=== PATIENT | male | born 1965 | race Caucasian/White ===

== ENCOUNTER 2016-11-05 16:52 | Emergency (ER) | payer MEDICARE ==
[2014-03-05 06:16] VITALS: BMI 24.5
== END 2016-11-06 00:40 | disposition home or self-care (01) ==
LOC: D.ER 16:52
DX: S01.01XA Laceration without foreign body of scalp, initial encounter (principal); W22.09XA Striking against other stationary object, initial encounter; Y93.89 Activity, other specified; Y92.410 Unspecified street and highway as the place of occurrence of the external cause

== ENCOUNTER 2016-11-14 13:15 | Emergency (ER) | payer MEDICARE ==
[2014-03-05 06:16] VITALS: BMI 24.5
== END 2016-11-14 16:17 | disposition left against medical advice (07) ==
LOC: D.ER 13:15
DX: S01.91XD Laceration without foreign body of unspecified part of head, subsequent encounter (principal); X58.XXXD Exposure to other specified factors, subsequent encounter; Y92.89 Other specified places as the place of occurrence of the external cause; Z48.02 Encounter for removal of sutures

== ENCOUNTER 2018-09-27 11:18 | Inpatient (IN) | payer MEDICARE ==
[~2018-09-27] VITALS: Ht 175.3 cm; Wt 72.6 kg
[2018-09-27 12:27] LABS: BASOPHILS 0.2 % (0-2); EOSINOPHILS 1.3 % (0-7); HEMATOCRIT 38.7 % (42.0-54.0); HEMOGLOBIN 13.4 g/dL (13.5-17.5); IMMATURE GRANULOCYTES 0.4 % (0-5); LYMPHOCYTES 11.4 % (15-50); MCH 32.5 pg (26.0-34.0); MCHC 34.6 g/dL (31.0-37.0); MCV 93.9 fL (80.0-100.0); MEAN PLATELET VOLUME 9.4 fL (7.4-10.4); MONOCYTES 7.7 % (2-11); RBC 4.12 10x6/uL (4.20-6.10); RDW 12.6 % (11.5-14.5); WBC 9.2 10x3/uL (4.8-10.8)
[2018-09-27 12:33] LABS: PLATELET COUNT 254 10x3/uL (130-400)
[2018-09-27 12:51] LABS: APTT 37.6 SECONDS (22.8-39.4); INR 1.03 (0.85-1.17)
[2018-09-27 12:59] LABS: ALBUMIN 3.4 g/dL (3.4-5.0); ALKALINE PHOSPHATASE 90 U/L (46-116); ALT (SGPT) 117 U/L (10-68); CALC OSMOLALITY 276 mosm/kg (275-300); CALCIUM 8.6 mg/dL (8.5-10.1); CARBON DIOXIDE 21.9 mmol/L (21.0-32.0); CHLORIDE - SERUM 103 mmol/L (98-107); CREATININE - SERUM 0.6 mg/dL (0.6-1.3); GLUCOSE 116 mg/dL (74-106); PROTEIN - SERUM 8.5 g/dL (6.4-8.2); SODIUM 138 mmol/L (136-145); UREA NITROGEN 13 mg/dL (7-18); eGFR NON AFRICAN AMERICAN > 90 mL/min (90-120)
[2018-09-27 13:08] LABS: CKMB 0.9 U/L (0.0-3.6); CREATINE KINASE 60 UL (21-232)
[2018-09-27 13:11] LABS: TROPONIN-I < 0.017 ng/mL (0.000-0.060)
[2018-09-27 13:50] LABS: APPEARANCE CLEAR (CLEAR); COLOR YELLOW (YELLOW); GLUCOSE NEGATIVE (NEGATIVE); NITRITE NEGATIVE (NEGATIVE); PROTEIN NEGATIVE (NEGATIVE)
[2018-09-27 13:51] LABS: BILIRUBIN NEGATIVE (NEGATIVE); KETONE NEGATIVE (NEGATIVE)
--- NOTE | 2018-09-27 17:10 | NUR ---
RECIEVED TO ROOM 1212 FROM ER VIA . IV TO L NECK PATENT. DRESSINGS C/D/I TO BILAT ARMS. DENIES ANY NEEDS AT THIS TIME.
[2018-09-27 17:13] VITALS: BP 139/84; BMI 23.6
--- NOTE | 2018-09-27 19:12 | NUR ---
NORCO GIVEN FOR COMPLAINT OF PAIN.
--- NOTE | 2018-09-27 19:30 | NUR ---
PT IS RESTING IN BED WATCHING TV. ALERT AND ORIENTED X 3. PT STATES HE THINKS HIS PAIN MEDICINE IS STARTING TO WORK. IV INFUSING TO LEFT NECK PERIPHERAL VEIN WITHOUT DIFFICULTY. DRESSINGS TO YUNIOR ARMS ARE CDI. NO DRAINAGE NOTED. SR'S ARE UP X1 IN BED. CALL LIGHT AND BEDSIDE TABLE ARE WITHIN EASY REACH.
[2018-09-27 20:00] VITALS: BP 117/62
--- NOTE | 2018-09-27 22:17 | NUR ---
PT IS RESTING IN BED WITH EYES CLOSED. NO ACUTE DISTRESS NOTED.
[2018-09-28] VITALS: BP 118/68
--- NOTE | 2018-09-28 01:45 | NUR ---
PT RESTING IN BED WITH EYES CLOSED.
--- NOTE | 2018-09-28 02:05 | NUR ---
I AGREE WITH THE ORACLE ADF DEVELOPER ASSESSMENT THIS SHIFT.
[2018-09-28 04:00] VITALS: BP 126/71
--- NOTE | 2018-09-28 04:32 | NUR ---
PT RESTING IN BED WITH EYES OPEN. NO ACUTE DISTRESS NOTED.
[2018-09-28 07:03] LABS: BASOPHILS 0.3 % (0-2); EOSINOPHILS 1.5 % (0-7); HEMATOCRIT 34.9 % (42.0-54.0); IMMATURE GRANULOCYTES 0.2 % (0-5); LYMPHOCYTES 15.2 % (15-50); MCH 32.4 pg (26.0-34.0); MCHC 34.4 g/dL (31.0-37.0); MCV 94.3 fL (80.0-100.0); MEAN PLATELET VOLUME 9.3 fL (7.4-10.4); MONOCYTES 9.4 % (2-11); NEUTROPHILS 73.4 % (40-80); PLATELET COUNT 256 10x3/uL (130-400); RDW 12.5 % (11.5-14.5); WBC 9.5 10x3/uL (4.8-10.8)
[2018-09-28 07:40] LABS: ALBUMIN 2.7 g/dL (3.4-5.0); ALKALINE PHOSPHATASE 72 U/L (46-116); BILIRUBIN - TOTAL 0.79 mg/dL (0.2-1.3); CALCIUM 8.1 mg/dL (8.5-10.1); CARBON DIOXIDE 22.7 mmol/L (21.0-32.0); CHLORIDE - SERUM 104 mmol/L (98-107); CREATININE - SERUM 0.7 mg/dL (0.6-1.3); GLUCOSE 109 mg/dL (74-106); MAGNESIUM - SERUM 1.8 mg/dL (1.8-2.4); POTASSIUM - SERUM 3.9 mmol/L (3.5-5.1); PROTEIN - SERUM 7.3 g/dL (6.4-8.2); SODIUM 136 mmol/L (136-145); eGFR NON AFRICAN AMERICAN > 90 mL/min (90-120)
[2018-09-28 07:50] LABS: ALT (SGPT) 87 U/L (10-68); CALC OSMOLALITY 270 mosm/kg (275-300); UREA NITROGEN 7 mg/dL (7-18)
--- NOTE | 2018-09-28 07:55 | NUR ---
ASSESSMENT COMPLETE. IV TO L NECK PATENT. DRESSINGS INTACT TO BILAT ARMS. DENIES ANY NEEDS AT THIS TIME.
[2018-09-28 09:10] VITALS: BP 154/88; BP 97/52
--- NOTE | 2018-09-28 11:00 | NUR ---
RESTING QUIETLY WITH EYES CLOSED. RESP EVEN,NONLABORED.
--- NOTE | 2018-09-28 15:10 | NUR ---
NO CHANGES NOTED AT THIS TIME.
--- NOTE | 2018-09-28 15:49 | NUR ---
NORCO GIVEN FOR COMPLAINT OF PAIN.
[2018-09-28 19:35] VITALS: BP 110/64
[2018-09-28 19:42] LABS: CKMB 0.2 U/L (0.0-3.6); CREATINE KINASE 30 UL (21-232)
[2018-09-28 19:53] LABS: TROPONIN-I < 0.017 ng/mL (0.000-0.060)
--- NOTE | 2018-09-28 20:00 | NUR ---
PT RESTING IN BED WATCHING TV. ALERT AND ORIENTED X 3. DENIES ACUTE DISCOMFORT AT THIS TIME. NO NEEDS VOICED. IV INFUSING TO LEFT NECK PERIPHERAL IV WITHOUT DIFFICULTY. SR'S ARE UP X 1 IN BED. CALL LIGHT AND BEDSIDE TABLE ARE WITHIN EASY REACH. YUNIOR ARM DRESSINGS ARE INTACT.
[2018-09-28 20:23] VITALS: BP 110/56
[2018-09-29] VITALS (9 sets, daily range): BP systolic 99–168; BP diastolic 47–84
[2018-09-29 01:21] LABS: CKMB 0.2 U/L (0.0-3.6); CREATINE KINASE 30 UL (21-232)
[2018-09-29 01:25] LABS: TROPONIN-I < 0.017 ng/mL (0.000-0.060)
--- NOTE | 2018-09-29 02:56 | NUR ---
I AGREE WITH THE BOOM STICK MAN ASSESSMENT THIS SHIFT.
--- NOTE | 2018-09-29 06:12 | NUR ---
PT RESTING QUIETLY IN BED WITH EYES CLOSED.
[2018-09-29 07:30] LABS: BASOPHILS 0.2 % (0-2); EOSINOPHILS 0.8 % (0-7); HEMOGLOBIN 11.5 g/dL (13.5-17.5); IMMATURE GRANULOCYTES 0.3 % (0-5); LYMPHOCYTES 11.3 % (15-50); MCH 31.9 pg (26.0-34.0); MCHC 33.8 g/dL (31.0-37.0); MCV 94.4 fL (80.0-100.0); MEAN PLATELET VOLUME 9.2 fL (7.4-10.4); MONOCYTES 10.2 % (2-11); NEUTROPHILS 77.2 % (40-80); PLATELET COUNT 261 10x3/uL (130-400); RDW 12.5 % (11.5-14.5); WBC 10.6 10x3/uL (4.8-10.8)
[2018-09-29 07:39] LABS: CREATINE KINASE 28 UL (21-232); VANCOMYCIN - TROUGH 14.9 ug/mL (10.0-20.0)
[2018-09-29 07:42] LABS: TROPONIN-I < 0.017 ng/mL (0.000-0.060)
--- NOTE | 2018-09-29 08:15 | NUR ---
AWAKE AND ALERT. ORIENTED X3. NO C/O AT THIS TIME. ATE 100% OF BREAKFAST. LUNGS ARE CLEAR BILATERALLY, NO COUGH NOTED. SKIN IS INTACT WITHOUT REDNESS EXCEPT WOUNDS TO BILATERAL ARMS. JEFFERY LIRA HUMAN RESOURCES COMPLIANCE MANAGER HERE AND CHANGED DRESSINGS. WOUNDS ARE ABOUT BASEBALL SIZE AND VERY ANGRY, ELEVATED WELL. IV TO LEFT NECK IS PATENT WITHOUT REDNESS AT INSERTION SITED. DENIES NEEDS.
--- NOTE | 2018-09-29 10:20 | NUR ---
CONSENTS OBTAINED. ALL QUESTIONS ANSWERED. C/O FEVER. TEMP 98.7 AXILLARY. HEAT TURNED OFF. FAN PLACED AT BEDSIDE.
--- NOTE | 2018-09-29 14:15 | MORECARE ---
CASE MANAGEMENT DISCHARGE SUMMARY PATIENT: RAMIRO GORDON UNIT: [id number] ADM DATE: 09/27/18 AGE: 53 : 63 SEX: M ROOM/BED: D.1212 AUTHOR: EVONNE SANTA PHYSICIAN: REFERRING PHYSICIAN: RICHARD MARIA MD DATE OF SERVICE: 09/29/18 Discharge Plan Patient Name: RAMIRO GORDON Facility: [facility]:[place] : 1965 Planned Disposition: Anticipated Discharge Date: Discharge Date: Expected LOS: Initial Reviewer: [id number] Initial Review Date: 09/29/2018 Generated: 09/29/18 3:15 pm Comments DCP- Discharge Planning Updated by [email or web address]: Dede Arizmendi on 09/29/18 1:[address] Patient Name: RAMIRO GORDON Admission Status: ER Accout number: [id number] Admission Date: 09-27-2018 : 1965 Admission Diagnosis: Attending: RICHARD LUZ Current LOS: 2 Anticipated DC Date: Planned Disposition: Primary Insurance: MEDICARE A & B Discharge Planning Comments: CM MET WITH PATIENT ABOUT DC PLANNING. UNSURE OF ANY NEEDS AT THIS TIME, PATIENT IS GOING TO SURGERY. CM WILL FOLLOW AND ASSIST NEEDED WITH DC PLANNING/NEEDS. Color Control Operator: Dede Arizmendi DCPIA - Discharge Planning Initial Assessment Updated by [email or web address]: Dede Arizmendi on 09/29/18 2:12 pm * Is the patient Alert and Oriented? Yes * PCP NONE BUT WANTS [facility] * Pharmacy [facility] * Preadmission Environment Home Alone * ADLs Independent * List name and contact numbers for known caregivers / representatives who currently or will assist patient after discharge: MOTHER MART, * Can the patient safely return to the preadmission environment? Yes * Has this patient been hospitalized within the prior 30 days at any hospital? No Patient Name: RAMIRO GORDON Page [phone] at 1415 All edits/amendments must be made on the electronic document DICTATION DATE: 09/29/18 1414 FINISHER POLISHER: VIKTORIYA 09/29/18 1410 RPT#: [id number] [place] DATE: STATUS: ADM IN [facility] [address] [place] [address] END OF REPORT
--- NOTE | 2018-09-29 14:30 | NUR ---
OFF UNIT VIA BED TO SURGERY.
--- NOTE | 2018-09-29 16:32 | NUR ---
RETURNED FROM SURGERY. A/O X3. DRESSINGS TO BILATERAL ARMS DRY AND INTACT. FOOD SERVED IN ROOM.
--- NOTE | 2018-09-29 21:04 | NUR ---
REST IN BED, CALL LIGHT IN REACH.
[2018-09-30] VITALS: BP 104/44
--- NOTE | 2018-09-30 01:44 | NUR ---
AMRIT FORD NP CALLS UNIT, [facility], RN TALKS TO AMRIT FORD NP REGARDING IV IN NECK NO LONGER PATENT AND PT'S ARMS ARE COMPLETELY BANDAGED, AND PT HAS MRSA, ORDERS RECEIVED AND VERIFIED TO START IV IN FOOT
--- NOTE | 2018-09-30 04:08 | NUR ---
REST QUIELTY IN BED, CALL LIGHT IN REACH.
[2018-09-30 04:30] VITALS: BP 139/63
[2018-09-30 07:29] LABS: BASOPHILS 0 % (0-2); EOSINOPHILS 0 % (0-7); HEMATOCRIT 31.8 % (42.0-54.0); HEMOGLOBIN 10.9 g/dL (13.5-17.5); IMMATURE GRANULOCYTES 0.3 % (0-5); LYMPHOCYTES 6.6 % (15-50); MCH 32.2 pg (26.0-34.0); MCHC 34.3 g/dL (31.0-37.0); MCV 93.8 fL (80.0-100.0); MEAN PLATELET VOLUME 9.5 fL (7.4-10.4); MONOCYTES 2.2 % (2-11); NEUTROPHILS 90.9 % (40-80); PLATELET COUNT 261 10x3/uL (130-400); RBC 3.39 10x6/uL (4.20-6.10); RDW 12.2 % (11.5-14.5); WBC 12.5 10x3/uL (4.8-10.8)
[2018-09-30 07:49] LABS: ALBUMIN 2.4 g/dL (3.4-5.0); ALKALINE PHOSPHATASE 77 U/L (46-116); ALT (SGPT) 72 U/L (10-68); CALC OSMOLALITY 276 mosm/kg (275-300); CARBON DIOXIDE 23.1 mmol/L (21.0-32.0); CHLORIDE - SERUM 104 mmol/L (98-107); CREATININE - SERUM 0.6 mg/dL (0.6-1.3); GLUCOSE 137 mg/dL (74-106); MAGNESIUM - SERUM 1.9 mg/dL (1.8-2.4); POTASSIUM - SERUM 3.7 mmol/L (3.5-5.1); PROTEIN - SERUM 7.2 g/dL (6.4-8.2); SODIUM 138 mmol/L (136-145); eGFR NON AFRICAN AMERICAN > 90 mL/min (90-120)
[2018-09-30 07:50] LABS: UREA NITROGEN 10 mg/dL (7-18)
[2018-09-30 09:01] VITALS: BP 105/63
[2018-09-30 10:22] LABS: HEPATITIS C ANTIBODY >11.0 S/CO RAT (0.0-0.9)
--- NOTE | 2018-09-30 11:18 | EC ---
PATIENT:RAMIRO GORDON DATE OF SERVICE: 09/27/18 SEX: M MEDICAL RECORD: [id number] DATE OF : 63 LOCATION:D. D.121 AGE OF PATIENT: 53 ADMISSION DATE: 09/27/18 REFERRING PHYSICIAN: INTERPRETING PHYSICIAN: ROSS KENNEDY MD ECHOCARDIOGRAM REPORT ECHO CHARGES 4 ECHO COMPLETE Date: 09/28/18 CLINICAL DIAGNOSIS: DYSPNEA ECHOCARDIOGRAPHIC MEASUREMENTS (adult normal given) AC root (d.<3.7cm) 3.6 cm LV Septum d (<1.2 cm> 1.1 cm Valve Excursion 2.3 cm LV Septum (systole) 1.3 cm Left Atria (s.<4.0cm> 4.3 cm LVPW d(<1.2cm) 1.3 cm RV (d.<2.3cm) 3.6 cm LVPW (sytole) 1.5 cm LV diastole(<5.6CM) 5.9 cm MV E-F(>70mm/sec) cm LV systole 4.2 cm LVOT Diameter 1.9 cm MV exc.(>10mm) 1.6 cm Est.ejection fraction (50-75%) % DOPPLER: LVIT cm/sec A 76.0 cm/sec E 90.0 cm/sec LA cm/sec RVSP 35 mmHg LVOT 146 cm/sec AOP1/2T m/s Asc. Ao 165 cm/sec RVOT 95 cm/sec RA cm/sec PA 130 cm/sec AV Gradient Peak 10.95mmHg AV Mean 5.05 mmHg AV Area 2.9 cm MV Gradient Peak 4.09 mmHg MV Mean 1.81 mmHg MV Area cm COMMENTS: Manager Access: Moses THORNE Exhaust And Muffler Repairer: 1 Dr. Kennedy TAPE# PACS Pericardial Effusion N DATE OF SERVICE: 09/28/2018 FINDINGS: 1. Left ventricular chamber size is within normal limits. Left ventricular systolic function is normal. Overall ejection fraction is estimated at 60%. 2. Left atrium is mildly dilated at 4.3 cm. Right atrium and right ventricle chamber sizes are as well mildly dilated. 3. Valvular structures have normal structure and motion. 4. Doppler interrogation reveals tqxpx-qy-wwcl mitral regurgitation and rnalc-mv-nlrw tricuspid regurgitation. No other valvular insufficiency or ECHOCARDIOGRAM REPORT [id number] GORDON,RAMIRO R stenosis. Pulmonary systolic pressure is estimated at 35 mmHg. 5. No evidence of pericardial effusion or left ventricular thrombus. TRANSINT:[id number] Voice Confirmation ID: [id number] DOCUMENT ID: [id number] ROSS KENNEDY MD at 1118 CC: [id number] DICTATION DATE: 09/28/18 1318 GLASS TOUGHENING OPERATOR: 09/28/18 1348 ADM IN [facility] [address] [id number]
[2018-09-30 12:08] VITALS: BP 118/68
[2018-09-30 15:26] VITALS: BP 109/58
--- NOTE | 2018-09-30 15:35 | NUR ---
PAGED MARIA EUGENIA, WAITING RIVER GUIDE BACK.
--- NOTE | 2018-09-30 19:20 | NUR ---
CONTACT ISOLATION OBSERVED. BED LOW AND CALL LIGHT IN REACH. IV TO RT FOOT SALINE LOCKED WITH NO EDEMA NO REDNESS. LCTA SKIN WARM AND DRY . COMPLAINING OF ITCHING EYES ...NO REDNESS NOTED AT THIS TIME
--- NOTE | 2018-09-30 19:59 | NUR ---
REQUESTING A BATH AT THIS TIME. I ASCKED PATIENT TO WAIT. WILL TAKE ASSIST DUE TO BANDAGES AND IV TO FOOT.
[2018-09-30 20:31] VITALS: BP 111/62
[2018-10-01] VITALS: BP 110/72
[2018-10-01 05:42] VITALS: BP 97/55
--- NOTE | 2018-10-01 08:05 | NUR ---
IVPB VANCOMYCIN HUNG AT THIS TIME. ALSO GAVE NORCO FOR PAIN LEVEL OF 10/10. PT A/O X4, RESP EVEN AND NONLABORED ON RA. DRESSING TO BILAT ARMS CDI. PT DENIES ANY OTHER NEEDS AT THIS TIME. CALL LIGHT IN REACH,NAD NOTED, WILL CONTINUE PLAN OF CARE.
[2018-10-01 08:14] LABS: BASOPHILS 0.2 % (0-2); EOSINOPHILS 0.2 % (0-7); HEMATOCRIT 31.2 % (42.0-54.0); HEMOGLOBIN 10.5 g/dL (13.5-17.5); IMMATURE GRANULOCYTES 1.2 % (0-5); LYMPHOCYTES 14.7 % (15-50); MCH 31.6 pg (26.0-34.0); MCHC 33.7 g/dL (31.0-37.0); MEAN PLATELET VOLUME 9.2 fL (7.4-10.4); MONOCYTES 5.6 % (2-11); NEUTROPHILS 78.1 % (40-80); PLATELET COUNT 271 10x3/uL (130-400); RBC 3.32 10x6/uL (4.20-6.10); RDW 12.4 % (11.5-14.5); WBC 12.7 10x3/uL (4.8-10.8)
[2018-10-01 08:26] LABS: ALBUMIN 2.2 g/dL (3.4-5.0); ALKALINE PHOSPHATASE 75 U/L (46-116); ALT (SGPT) 54 U/L (10-68); CALC OSMOLALITY 280 mosm/kg (275-300); CARBON DIOXIDE 25.9 mmol/L (21.0-32.0); CHLORIDE - SERUM 108 mmol/L (98-107); CREATININE - SERUM 0.6 mg/dL (0.6-1.3); GLUCOSE 109 mg/dL (74-106); POTASSIUM - SERUM 3.8 mmol/L (3.5-5.1); PROTEIN - SERUM 6.5 g/dL (6.4-8.2); SODIUM 141 mmol/L (136-145); UREA NITROGEN 10 mg/dL (7-18); eGFR NON AFRICAN AMERICAN > 90 mL/min (90-120)
[2018-10-01 09:21] VITALS: BP 115/66
--- NOTE | 2018-10-01 10:49 | NUR ---
PER DR. BOURNE, PT CAN HAVE 10MG OF AMBIEN QHSPRN AND MIRALAX BID.
--- NOTE | 2018-10-01 12:47 | MORECARE ---
CASE MANAGEMENT DISCHARGE SUMMARY PATIENT: RAMIRO GORDON UNIT: [id number] ADM DATE: 09/27/18 AGE: 53 : 63 SEX: M ROOM/BED: D.1212 AUTHOR: ARINADOC PHYSICIAN: REFERRING PHYSICIAN: RICHARD MARIA MD DATE OF SERVICE: 10/01/18 Discharge Plan Patient Name: RAMIRO GORDON Facility: [facility]:[place] : 1965 Planned Disposition: Anticipated Discharge Date: Discharge Date: Expected LOS: Initial Reviewer: [id number] Initial Review Date: 09/29/2018 Generated: 10/01/18 1:47 pm Comments DCP- Discharge Planning Updated by [email or web address]: Dede Arizmendi on 10/01/18 11:[address] Patient Name: RAMIRO GORDON Admission Status: ER Accout number: [id number] Admission Date: 09-27-2018 : 1965 Admission Diagnosis:CUTANEOUS ABSCESS OF LEFT UPPER LIMB Attending: RICHARD LUZ Current LOS: 4 Anticipated DC Date: Planned Disposition: Primary Insurance: MEDICARE A & B Discharge Planning Comments: CM MET WITH PATIENT ABOUT DC PLANNING. STATES HAS NO PLACE TO STAY UNTIL SATURDAY WHEN HE GETS HIS CHECK. STATES WHEN HE HAS A PLACE HE COULD USE [facility] BUT HAS NO ONE TO HELP HIM WITH DAILY DRESSING CHANGES. STATES IF NEEDS SNF W[facility] LIKE [facility]. I WILL START THE REFERRAL PROCESS WHEN I FIND OUT WHICH HE WILL NEED. CM TO FOLLOW AND ASSIST NEEDED WITH DC PLANNING/NEEDS. Scalder: Dede Arizmendi DCP- Discharge Planning Updated by [id number]: Dede Arizmendi on 09/29/18 1:[address] Patient Name: RAMIRO GORDON Admission Status: ER Accout number: [id number] Admission Date: 09-27-2018 : 1965 Admission Diagnosis: Attending: RICHARD LUZ Current LOS: 2 Anticipated DC Date: Planned Disposition: Primary Insurance: MEDICARE A & B Discharge Planning Comments: CM MET WITH PATIENT ABOUT DC PLANNING. UNSURE OF ANY NEEDS AT THIS TIME, PATIENT IS GOING TO SURGERY. CM WILL FOLLOW AND ASSIST NEEDED WITH DC PLANNING/NEEDS. Scalder: Dede Arizmendi DCPIA - Discharge Planning Initial Assessment Updated by [id number]: Dede Arizmendi on 09/29/18 2:12 pm * Is the patient Alert and Oriented? Yes * PCP NONE BUT WANTS [facility] * Pharmacy [facility] * Preadmission Environment Home Alone * ADLs Independent * List name and contact numbers for known caregivers / representatives who currently or will assist patient after discharge: MOTHER MART, * Can the patient safely return to the preadmission environment? Yes * Has this patient been hospitalized within the prior 30 days at any hospital? No Coverage Notice Reviewer: [email or web address] Breanne Arizmendi Notice Issued Date-Time: 10/01/2018 12:36 Notice Type: Patient Choice Letter Notice Delivered To: Patient Relationship to Patient: Self Casino Worker Name: Delivery Method: HAND - Hand Delivered Argenis Days: Prior Verbal Notification: Recipient Understood Notice: Yes Recipient Signature: Yes Med Rec Note Co-signed by Attending: Coverage Notice Comment: ALEX SIGNED FOR CARE IV HH ALEX SIGNED FOR [facility]. Last DP export: 09/29/18 1:15 p Patient Name: RAMIRO GORDON Page [phone] at 1247 All edits/amendments must be made on the electronic document DICTATION DATE: 10/01/181246 PUSH BENCH OPERATOR HELPER: VIKTORIYA 10/01/18 1247 RPT#: [id number] DC DATE: STATUS: ADM IN [facility] [address] [place] [address] END OF REPORT
[2018-10-01 13:59] VITALS: BP 110/58
[2018-10-01 17:03] VITALS: BP 98/51
--- NOTE | 2018-10-01 19:25 | NUR ---
CONTINIUE TO OBSERVE CONTACT ISOLATION. BANDAGES TO ARMS BILATE IN PLACE BED LOW AND SRX2 IV TO RT FOOT NO EDEMA OR REDNESS INFUSING TO KEEP OPEN RATECALL LIGHT IN REACH...PT REMINDS ME HE WANTS A SLEEPING PILL. LCTA NO OTHER WOUNDS NOTED
--- NOTE | 2018-10-01 21:30 | NUR ---
DOROTHY AND CHRIS GIVEN POST DRSG CHANGE. REMOVED ALL BANDAGES AND REMOVED PACKING FROM ON SITE TO LEFT ARM THEN REPACKED WITH IODOFORM COVERD WITH STERILE GUAZE AND KERLIX...REMOVED ALL DRSGS AND PACKING FROM THREE PSITES TO RT ARM...REPACKED WITH IODODFORM AND AND COVERED WITH STERILE GUAZE AND KERLIX
[2018-10-01 22:33] VITALS: BP 101/52
[2018-10-02 02:34] VITALS: BP 98/53
--- NOTE | 2018-10-02 03:38 | NUR ---
I AGREE WITH AUTOMOTIVE PAINTER ASSESSMENT
[2018-10-02 05:44] VITALS: BP 88/40
[2018-10-02 06:42] LABS: BASOPHILS 0.6 % (0-2); EOSINOPHILS 1.7 % (0-7); HEMATOCRIT 32.5 % (42.0-54.0); HEMOGLOBIN 10.7 g/dL (13.5-17.5); IMMATURE GRANULOCYTES 4.6 % (0-5); LYMPHOCYTES 34.2 % (15-50); MCH 31.6 pg (26.0-34.0); MCHC 32.9 g/dL (31.0-37.0); MCV 95.9 fL (80.0-100.0); MEAN PLATELET VOLUME 9.2 fL (7.4-10.4); MONOCYTES 9.2 % (2-11); NEUTROPHILS 49.7 % (40-80); PLATELET COUNT 255 10x3/uL (130-400); RBC 3.39 10x6/uL (4.20-6.10); RDW 12.7 % (11.5-14.5)
[2018-10-02 06:54] LABS: ALBUMIN 2.2 g/dL (3.4-5.0); ALKALINE PHOSPHATASE 59 U/L (46-116); ALT (SGPT) 58 U/L (10-68); BILIRUBIN - TOTAL 0.14 mg/dL (0.2-1.3); CALC OSMOLALITY 280 mosm/kg (275-300); CALCIUM 7.9 mg/dL (8.5-10.1); CARBON DIOXIDE 28.7 mmol/L (21.0-32.0); CHLORIDE - SERUM 107 mmol/L (98-107); CREATININE - SERUM 0.6 mg/dL (0.6-1.3); GLUCOSE 90 mg/dL (74-106); SODIUM 141 mmol/L (136-145); UREA NITROGEN 12 mg/dL (7-18); eGFR NON AFRICAN AMERICAN > 90 mL/min (90-120)
--- NOTE | 2018-10-02 08:07 | NUR ---
The patient called staff to his room and he said he peed the bed. So I said "I'll need to change the linens." He said "No, I'm tired just put a towel down." Did put a towel down and then Nickolas was able to change his linens.
[2018-10-02 10:11] VITALS: BP 95/54
--- NOTE | 2018-10-02 11:00 | NUR ---
The patient spilled his urinal all over the floor.
[2018-10-02 13:43] VITALS: Ht 175.3 cm; Wt 72.6 kg
[2018-10-02 14:35] VITALS: BP 97/57
--- NOTE | 2018-10-02 16:00 | NUR ---
Offered to change the patient's bandages, he said "No, I just had them changed yesterday." Explained to him that the order is for everyday. The patient requests ice cream and a lemon tonawanda drink.
--- NOTE | 2018-10-02 19:40 | NUR ---
AWAKE AND ALERT TOLERATING ALL WELL BED LOW AND CALL LIGHT IN REACH SR X2 IV TO RT FOOT WITH NO EDEMA NO REDNESS AND NS AT 30 INFUSING. REFUSED EXAM AT THIS TIME....DRSG CHANGE OFFERED AND REFUSED.
[2018-10-02 20:00] VITALS: BP 106/61
--- NOTE | 2018-10-02 23:47 | NUR ---
BEGIN IV INFUSTION OF VAC AND PATIENT COMPLAIN OF PAIN AT THE NORIS SITE ATTEMPTED TO FLUSH WITH NO RESULTS. NO IV ACCESS AT THIS TIME PT REFUSES TO HAVE IV CATH REMOVED OR FOR ME TO ATTEMPT TO RESITE
[2018-10-03] VITALS: BP 109/62; BP 124/73
--- NOTE | 2018-10-03 02:55 | NUR ---
ASSESSED, PT REMAINS IN CONTACT ISOLATION. ASLEEP WITH EASY RESPIRATIONS AND A FAN BLOWING ON HIM. NO DISTRESS NOTED.
[2018-10-03 04:00] VITALS: BP 100/52
[2018-10-03 07:42] LABS: BASOPHILS 1.1 % (0-2); EOSINOPHILS 3.4 % (0-7); HEMATOCRIT 32.2 % (42.0-54.0); HEMOGLOBIN 10.8 g/dL (13.5-17.5); IMMATURE GRANULOCYTES 4.8 % (0-5); LYMPHOCYTES 27.5 % (15-50); MCHC 33.5 g/dL (31.0-37.0); MCV 95.3 fL (80.0-100.0); MEAN PLATELET VOLUME 9.3 fL (7.4-10.4); MONOCYTES 7.2 % (2-11); RBC 3.38 10x6/uL (4.20-6.10); RDW 12.8 % (11.5-14.5); WBC 7.1 10x3/uL (4.8-10.8)
[2018-10-03 07:44] LABS: PLATELET COUNT 326 10x3/uL (130-400)
--- NOTE | 2018-10-03 07:45 | NUR ---
ASSESSMENT COMPLETE. CONTACT ISOLATION PRECAUTIONS IN PLACE. DRESSINGS INTACT TO BILAT ARMS. DENIES ANY NEEDS AT THIS TIME.
[2018-10-03 07:51] LABS: ALBUMIN 2.4 g/dL (3.4-5.0); ALKALINE PHOSPHATASE 66 U/L (46-116); ALT (SGPT) 61 U/L (10-68); BILIRUBIN - TOTAL 0.19 mg/dL (0.2-1.3); CALC OSMOLALITY 279 mosm/kg (275-300); CARBON DIOXIDE 24.8 mmol/L (21.0-32.0); CHLORIDE - SERUM 105 mmol/L (98-107); CREATININE - SERUM 0.6 mg/dL (0.6-1.3); GLUCOSE 92 mg/dL (74-106); PROTEIN - SERUM 6.5 g/dL (6.4-8.2); SODIUM 140 mmol/L (136-145); UREA NITROGEN 14 mg/dL (7-18); eGFR NON AFRICAN AMERICAN > 90 mL/min (90-120)
[2018-10-03 08:00] VITALS: BP 111/47
--- NOTE | 2018-10-03 08:20 | NUR ---
SWELLING AND TENDERNESS NOTED TO RIGHT FOOT IV. IV REMOVED. CATHETER TIP INTACT.
[2018-10-03] MEDS ORDERED: HYDROCODON-ACE1 EAC7 PO (08:42)
--- NOTE | 2018-10-03 11:00 | NUR ---
IV SITED TO R UPPER ARM BY LLUVIA WATSON RN.
[2018-10-03 13:16] VITALS: BP 106/64
--- NOTE | 2018-10-03 15:00 | NUR ---
NO CHANGES NOTED AT THIS TIME. DENIES ANY NEEDS AT PRESENT.
[2018-10-03 17:20] VITALS: BP 106/63
--- NOTE | 2018-10-03 17:41 | MORECARE ---
CASE MANAGEMENT DISCHARGE SUMMARY PATIENT: RAMIRO GORDON UNIT: [id number] ADM DATE: 09/27/18 AGE: 53 : 63 SEX: M ROOM/BED: D.1212 AUTHOR: ARINA,DOC PHYSICIAN: REFERRING PHYSICIAN: RICHARD MARIA MD DATE OF SERVICE: 10/03/18 Discharge Plan Patient Name: RAMIRO GORDON Facility: [facility]:[place] : 1965 Planned Disposition: Anticipated Discharge Date: Discharge Date: Expected LOS: Initial Reviewer: [id number] Initial Review Date: 09/29/2018 Generated: 10/03/18 6:41 pm Comments DCP- Discharge Planning Updated by [email or web address]: Dede Arizmendi on 10/03/18 4:[address] Patient Name: RAMIRO GORDON Admission Status: ER Accout number: [id number] Admission Date: 09-27-2018 : 1965 Admission Diagnosis:CUTANEOUS ABSCESS OF LEFT UPPER LIMB Attending: RICHARD LUZ Current LOS: 6 Anticipated DC Date: Planned Disposition: Primary Insurance: MEDICARE A & B Discharge Planning Comments: CM MET WITH PATIENT AGAIN ABOUT DC PLANNING/NEEDS. WANTS TO DISCHARGE FROM HOSPITAL SO HE CAN GO RENT A PLACE TO STAY AND EITHER GO TO [facility] TO HAVE DRESSING CHANGES OR HH ONCE HE HAS AN ADDRESS. PATIENT CELL PHONE NUMBER IS [phone]. Shipping Order Clerk: Dede Arizmendi DCP- Discharge Planning Updated by [id number]: Dede Arizmendi on 10/01/18 11:[address] Patient Name: RAMIRO GORDON Admission Status: ER Accout number: [id number] Admission Date: 09-27-2018 : 1965 Admission Diagnosis:CUTANEOUS ABSCESS OF LEFT UPPER LIMB Attending: RICHARD LUZ Current LOS: 4 Anticipated DC Date: Planned Disposition: Primary Insurance: MEDICARE A & B Discharge Planning Comments: CM MET WITH PATIENT ABOUT DC PLANNING. STATES HAS NO PLACE TO STAY UNTIL SATURDAY WHEN HE GETS HIS CHECK. STATES WHEN HE HAS A PLACE HE COULD USE [facility] BUT HAS NO ONE TO HELP HIM WITH DAILY DRESSING CHANGES. STATES IF NEEDS [facility] WOULD LIKE [facility]. I WILL START THE REFERRAL PROCESS WHEN I FIND OUT WHICH HE WILL NEED. CM TO FOLLOW AND ASSIST NEEDED WITH DC PLANNING/NEEDS. Shipping Order Clerk: Dede Arizmendi DCP- Discharge Planning Updated by [email or web address]: Dede Arizmendi on 09/29/18 1:[address] Patient Name: RAMIRO GORDON Admission Status: ER Accout number: [id number] Admission Date: 09-27-2018 : 1965 Admission Diagnosis: Attending: RICHARD LUZ Current LOS: 2 Anticipated DC Date: Planned Disposition: Primary Insurance: MEDICARE A & B Discharge Planning Comments: CM MET WITH PATIENT ABOUT DC PLANNING. UNSURE OF ANY NEEDS AT THIS TIME, PATIENT IS GOING TO SURGERY. CM WILL FOLLOW AND ASSIST NEEDED WITH DC PLANNING/NEEDS. Shipping Order Clerk: Dede Arizmendi DCPIA - Discharge Planning Initial Assessment Updated by [email or web address]: Dede Arizmendi on 09/29/18 2:12 pm * Is the patient Alert and Oriented? Yes * PCP NONE BUT WANTS [place] * Pharmacy [facility] * Preadmission Environment Home Alone * ADLs Independent * List name and contact numbers for known caregivers / representatives who currently or will assist patient after discharge: MOTHER MART, * Can the patient safely return to the preadmission environment? Yes * Has this patient been hospitalized within the prior 30 days at any hospital? No Coverage Notice Reviewer: [id number] - Dede Arizmendi Notice Issued Date-Time: 10/01/2018 12:36 Notice Type: Patient Choice Letter Notice Delivered To: Patient Relationship to Patient: Self Fleet Maintenance Foreman Name: Delivery Method: HAND - Hand Delivered Argenis Days: Prior Verbal Notification: Recipient Understood Notice: Yes Recipient Signature: Yes Med Rec Note Co-signed by Attending: Coverage Notice Comment: ALEX SIGNED FOR CARE IV HH ALEX SIGNED FOR [facility]. Last DP export: 10/01/18 11:47 a Patient Name: RAMIRO GORDON Page [phone] at 1741 All edits/amendments must be made on the electronic document DICTATION DATE: 10/03/181739 PULL SOCKET ASSEMBLER: VIKTORIYA 10/03/181739 RPT#: [id number] DC DATE: STATUS: ADM IN [facility] [address] [facility] END OF REPORT
--- NOTE | 2018-10-03 18:27 | NUR ---
DENIES ANY NEEDS AT THIS TIME.
--- NOTE | 2018-10-03 19:30 | NUR ---
PT RESTING IN BED. NO S/S OF DISTRESS. PT DENIES ANY PAIN OR NEEDS AT THIS TIME. RIGHT 20G UPPER ARM IV SALINE LOCKED. BED LOW CALL LIGHT WITHIN REACH. WILL CONTINUE TO MONITOR.
[2018-10-03 20:00] VITALS: BP 108/59
--- NOTE | 2018-10-04 02:56 | NUR ---
ASSESSED, PT IS AWAKE IN BED WITH NURSE AT THE BEDSIDE DOING A DRESSING CHANGE TO BILATERAL ARM WOUNDS AND INCISIONS. EASY RESPIRATIONS AND NO DISTRESS NOTED. PT REMAINS IN ISOLATION.
--- NOTE | 2018-10-04 03:32 | NUR ---
CHANGED PT DRESSING TO LEFT AND RIGHT HANDS AND FOREARM. USED IODAFORM FOR PACKING. WOUNDS POOLED WITH BLOOD UPON PULLING OUT IODAFORM. IODAFORM WAS STUCK TO WOUNDS. PT COMPLAINED OF PAIN AND DIZZENESS DURING REMOVAL. PT STATES DRESSING HAD NOT BEEN CHANGED ALL DAY. DRESSING C/D/I. PRN PAIN MED GIVEN. BED IS LOW, CALL LIGHT WITHIN REACH. WILL CONTINUE TO MONITOR.
[2018-10-04 04:00] VITALS: BP 161/86
--- NOTE | 2018-10-04 05:00 | NUR ---
PT REQUESTING TO SEE MD BEFORE RELEASE FROM [facility] CONCERNING WOUNDS ON ARMS BILAT. WILL PASS IN REPORT. BED LOW CALL LIGHT WITHIN REACH. WILL CONTINUE TO MONITOR
[2018-10-04 07:11] LABS: BASOPHILS 0.5 % (0-2); EOSINOPHILS 2.6 % (0-7); HEMATOCRIT 35.1 % (42.0-54.0); HEMOGLOBIN 11.8 g/dL (13.5-17.5); IMMATURE GRANULOCYTES 3.5 % (0-5); LYMPHOCYTES 23.2 % (15-50); MCH 31.5 pg (26.0-34.0); MCHC 33.6 g/dL (31.0-37.0); MCV 93.6 fL (80.0-100.0); MEAN PLATELET VOLUME 9.1 fL (7.4-10.4); MONOCYTES 6.1 % (2-11); NEUTROPHILS 64.1 % (40-80); PLATELET COUNT 323 10x3/uL (130-400); RBC 3.75 10x6/uL (4.20-6.10); RDW 12.5 % (11.5-14.5); WBC 8.8 10x3/uL (4.8-10.8)
[2018-10-04 07:46] LABS: CALC OSMOLALITY 273 mosm/kg (275-300); CALCIUM 8.5 mg/dL (8.5-10.1); CARBON DIOXIDE 24.8 mmol/L (21.0-32.0); CHLORIDE - SERUM 102 mmol/L (98-107); CREATININE - SERUM 0.7 mg/dL (0.6-1.3); GLUCOSE 93 mg/dL (74-106); POTASSIUM - SERUM 3.8 mmol/L (3.5-5.1); SODIUM 137 mmol/L (136-145); UREA NITROGEN 12 mg/dL (7-18); eGFR NON AFRICAN AMERICAN > 90 mL/min (90-120)
[2018-10-04 07:58] VITALS: BP 141/77
--- NOTE | 2018-10-04 08:06 | NUR ---
RECIEVED BEDSIDE REPORT. AM ROUNDS COMPLETED. VSS, AAOX4, NO S/S OF DISTRESS, RR EVEN AND UNLABORED. PT ON CONTACT PRECAUTION. PT RIGHT AND LEFT HAND DRESSING C/D/I. DENIES ANY FURTHER NEEDS AT THE MOMENT. WILL CPOC. CL IN REACH BED IN LOW, SR UP X2.
[2018-10-04 13:34] VITALS: BP 140/90
--- NOTE | 2018-10-04 14:20 | NUR ---
PT BROTHER CALLED STATING THAT HE WILL BE COMING DOWN TO THE HOSPITAL TO COLLECT RENT MONEY FROM PT. NOTIFIED THE PT.
--- NOTE | 2018-10-04 15:02 | NUR ---
PT BROTHER WHEELED HIMSELF OUT OF THE ROOM, CALLING OUT "YOU THINK I AM FUCKING WITH YOU? YOU ARE HOMELESS" VISITOR WAS ASKED IF EVERYTHING WAS OKAY, HE REPLIED, "OH YES CAROLYNN, HE DOESN'T HAVE A PLACE TO LIVE WHEN HE GETS OUT OF HERE, AND I AM GOING TIE HIS DOG TO THE FRONT DOOR OF THE HOSPITAL."
[2018-10-04 16:00] VITALS: BP 117/79
--- NOTE | 2018-10-04 19:40 | NUR ---
PT ALERT AND ORIENTED X4. PT COMPLAINS OF PAIN 10/10 IN BILAT ARMS. PRN PAIN MEDICATION NOT DUE YET. VITALS STABLE. BED LOW CALL LIGHT WITHIN REACH. WILL CONTINUE TO MONITOR.
--- NOTE | 2018-10-04 22:00 | NUR ---
PT COMPLAINS OF PAIN IN BOTH LOWER ARMS. PRN PAIN MEDICATION GIVEN. PT DENIES ANY FURTHER NEEDS. BED LOW CALL LIGHT WITHIN REACH. WILL CONTINUE TO MONITOR.
--- NOTE | 2018-10-05 00:50 | NUR ---
PT RESTING IN BED WITH EYES CLOSED RR EVEN AND UNLABORED ON ROOM AIR. BED LOW CALL LIGHT WITHIN REACH. WILL CONTINUE TO MONITOR.
--- NOTE | 2018-10-05 02:26 | NUR ---
I AGREE WITH LAUNDRY CLERK ASSESSMENT THIS SHIFT.
[2018-10-05 05:27] VITALS: BP 120/82
--- NOTE | 2018-10-05 05:35 | NUR ---
WTD DRESSING CHANGE TO PT LOWER BILAT. ARMS. INCISION PINK WITH POOLING BLOOD UPON GENTLE REMOVAL OF IDOFORM. WET 4X4 PACKED IN WOUNDS COVERED BY DRY 4X4 AND WRAPPED IN KERLEX. PT TOLERATED WELL. NO S/S OF DISTRESS PT DENIES ANY PAIN OR NEEDS AT THIS TIME. DRESSING C/D/I. WILL CONTINUE TO MONITOR.
[2018-10-05 07:05] LABS: BASOPHILS 0.6 % (0-2); EOSINOPHILS 4.6 % (0-7); HEMATOCRIT 35.3 % (42.0-54.0); IMMATURE GRANULOCYTES 4.1 % (0-5); LYMPHOCYTES 22.9 % (15-50); MCH 32.1 pg (26.0-34.0); MCV 94.4 fL (80.0-100.0); MONOCYTES 8.4 % (2-11); NEUTROPHILS 59.4 % (40-80); PLATELET COUNT 308 10x3/uL (130-400); RBC 3.74 10x6/uL (4.20-6.10); RDW 12.8 % (11.5-14.5); WBC 7.1 10x3/uL (4.8-10.8)
[2018-10-05] MEDS ORDERED: VIBRAMYCIN 100100 MG PO (07:24)
[2018-10-05 07:34] LABS: CALC OSMOLALITY 270 mosm/kg (275-300); CALCIUM 8.5 mg/dL (8.5-10.1); CARBON DIOXIDE 24.5 mmol/L (21.0-32.0); CHLORIDE - SERUM 103 mmol/L (98-107); CREATININE - SERUM 0.6 mg/dL (0.6-1.3); GLUCOSE 94 mg/dL (74-106); POTASSIUM - SERUM 4.2 mmol/L (3.5-5.1); SODIUM 135 mmol/L (136-145); UREA NITROGEN 16 mg/dL (7-18); eGFR NON AFRICAN AMERICAN > 90 mL/min (90-120)
--- NOTE | 2018-10-05 08:05 | NUR ---
RESTING QUIETLY IN BED, EYES CLOSED, RESP EVEN AND UNLABORED, AROUSES TO VOICE, DRESSING TO ARMS CDI, SL TO RIGHT UPPER ARM, DENIES NEEDS AT THIS TIME, CALL LIGHT AT HAND, INSTRUCTED TO CALL WITH NEEDS.
[2018-10-05 08:51] VITALS: BP 128/70
--- NOTE | 2018-10-05 11:00 | NUR ---
PATIENT INSTRUCTED TO CALL MOTEL OF HIS CHOICE TO FIND SUITABLE LIVING QUARTERS UNTIL HE COULD LOCATE A PERMANENT DWELLING. PATIENT VOICED UNDERSTANDING.
--- NOTE | 2018-10-05 11:40 | MORECARE ---
CASE MANAGEMENT DISCHARGE SUMMARY PATIENT: RAMIRO GORDON UNIT: [id number] ADM DATE: 09/27/18 AGE: 53 : 63 SEX: M ROOM/BED: D.1212 AUTHOR: ARINA,DOC PHYSICIAN: REFERRING PHYSICIAN: RICHARD MARIA MD DATE OF SERVICE: 10/05/18 Discharge Plan Patient Name: RAMIRO GORDON Facility: [facility]:[place] : 1965 Planned Disposition: Anticipated Discharge Date: Discharge Date: Expected LOS: Initial Reviewer: [id number] Initial Review Date: 09/29/2018 Generated: 10/05/18 12:40 pm Comments DCP- Discharge Planning Updated by [email or web address]: Yuliya Araya on 10/05/18 10:[address] CM MET WITH THE PATIENT AT THE BEDSIDE THIS AM. HE PLANS TO DISCHARGE AFTER LUNCH TO A HOTEL ROOM HE HAS RECEIVED HIS CHECK. HIS BROTHER VISITED LAST EVENING AND WILL NOT ALLOW PATIENT TO RETURN TO THE BROTHER'S HOME. SEE NURSE'S DOCUMENTATION. NO DOCUMENTED REFERRAL TO A SKILLED FACILITY. WOULD LIKELY BE A DIFFICULT PLACEMENT DUE TO PATIENT'S AGE AND HISTORY. CM PROVIDED THE PATIENT WITH 4 BUS PASSES TO GET TO THE MD OFFICE FOR DRESSING CHANGES. NOTE THE PLAN IS FOR PATIENT TO GO TO DR MACK'S OFFICE FOR DRESSING CHANGES. CM REQUEST THE NURSE PROVIDE THE PATIENT WITH DRESSINGS IN CASE HE NEEDS TO DO CHANGES PRIOR TO MD VISIT. NURSE TO CALL IF PATIENT NEEDS [facility] TRANSPORT AT DISCHARGE. DCP- Discharge Planning Updated by [id number]: Dede Arizmendi on 10/03/18 4:[address] Patient Name: RAMIRO GORDON Admission Status: ER Accout number: [id number] Admission Date: 09-27-2018 : 1965 Admission Diagnosis:CUTANEOUS ABSCESS OF LEFT UPPER LIMB Attending: RICHARD LUZ Current LOS: 6 Anticipated DC Date: Planned Disposition: Primary Insurance: MEDICARE A & B Discharge Planning Comments: CM MET WITH PATIENT AGAIN ABOUT DC PLANNING/NEEDS. STATES WANTS TO DISCHARGE FROM HOSPITAL SO HE CAN GO RENT A PLACE TO STAY AND EITHER [facility] TO [facility] OR HH ONCE HE HAS AN ADDRESS. PATIENT CELL PHONE NUMBER IS [phone]. Attache: Dede Arizmendi DCP- Discharge Planning Updated by [id number]: Dede Arizmendi on 10/01/18 11:[address] Patient Name: RAMIRO GORDON Admission Status: ER Accout number: [id number] Admission Date: 09-27-2018 : 1965 Admission Diagnosis:CUTANEOUS ABSCESS OF LEFT UPPER LIMB Attending: RICHARD LUZ Current LOS: 4 Anticipated DC Date: Planned Disposition: Primary Insurance: MEDICARE A & B Discharge Planning Comments: CM MET WITH PATIENT ABOUT DC PLANNING. STATES HAS NO PLACE TO STAY UNTIL SATURDAY WHEN HE GETS HIS CHECK. STATES WHEN HE HAS A PLACE HE COULD USE [facility] BUT HAS NO ONE TO HELP HIM WITH DAILY DRESSING CHANGES. STATES IF NEEDS SNF WOULD LIKE [facility]. I WILL START THE REFERRAL PROCESS WHEN I FIND OUT WHICH HE WILL NEED. CM TO FOLLOW AND ASSIST NEEDED WITH DC PLANNING/NEEDS. Attache: Dede Arizmendi DCP- Discharge Planning Updated by [id number]: Dede Arizmendi on 09/29/18 1:[address] Patient Name: RAMIRO GORDON Admission Status: ER Accout number: [id number] Admission Date: 09-27-2018 : 1965 Admission Diagnosis: Attending: RICHARD LUZ Current LOS: 2 Anticipated DC Date: Planned Disposition: Primary Insurance: MEDICARE A & B Discharge Planning Comments: CM MET WITH PATIENT ABOUT DC PLANNING. UNSURE OF ANY NEEDS AT THIS TIME, PATIENT IS GOING TO SURGERY. CM WILL FOLLOW AND ASSIST NEEDED WITH DC PLANNING/NEEDS. Attache: Dede Arizmendi DCPIA - Discharge Planning Initial Assessment Updated by [id number]: Dede Arizmendi on 09/29/18 2:12 pm * Is the patient Alert and Oriented? Yes * PCP NONE BUT WANTS [place] * Pharmacy [facility] * Preadmission Environment Home Alone * ADLs Independent * List name and contact numbers for known caregivers / representatives who currently or will assist patient after discharge: MOTHER MART, * Can the patient safely return to the preadmission environment? Yes * Has this patient been hospitalized within the prior 30 days at any hospital? No Coverage Notice Reviewer: [id number] - Dede Arizmendi Notice Issued Date-Time: 10/01/2018 12:36 Notice Type: Patient Choice Letter Notice Delivered To: Patient Relationship to Patient: Self Program Instructor Name: Delivery Method: HAND - Hand Delivered Argenis Days: Prior Verbal Notification: Recipient Understood Notice: Yes Recipient Signature: Yes Med Rec Note Co-signed by Attending: Coverage Notice Comment: [facility] S[facility] FOR [facility] ALEX SIGNED FOR [facility]. Last DP export: 10/03/18 4:41 pm Patient Name: RAMIRO GORDON Page [id number] at 1140 All edits/amendments must be made on the electronic document DICTATION DATE: 10/05/18 1140 EMPLOYMENT CONSULTANT: DM 10/05/18 1140 RPT#: [id number] DC DATE: STATUS: ADM IN [facility] [address] [place] [address] END OF REPORT
--- NOTE | 2018-10-05 13:06 | NUR ---
PATIENT WAS ASKED BY STAFF WHAT HOTEL HE HAD SELECTED TO GO TO. PATIENT STATED, "I HAVE NOT SELECTED ONE. JUST TAKE ME TO THE FRONT DOOR AND I WILL FIND A PLACE LATER." PATIENT ENCOURAGED TO FINISH LUNCH BEFORE HE LEAVES FACILITY.
--- NOTE | 2018-10-05 13:29 | NUR ---
ASSISTED THE PATIENT IN PACKING UP HIS BELONGINGS, HIS RIDE IS HERE TO TAKE HIM TO A [facility] ON [facility] AND [address], PER PT REPORT. IV REMOVED FROM THE LEFT FOREARM, CATH TIP INTACT. HE IS ANXIOUS TO LEAVE.
--- NOTE | 2018-10-05 14:22 | NUR ---
REVIEWED THE DISCHARGE INSTRUCTIONS WITH THE PATIENT, AND HE WAS GIVEN THE RX FOR [place], A COPY PLACED IN THE CHART. PATIENT HAS A RIDE FROM A FRIEND. PATIENT WAS GIVEN SOME WOUND CARE SUPPLIES TO TAKE WELL FOLLOW UP INSTRUCTIONS.
--- NOTE | 2018-10-07 09:51 | MORECARE ---
CASE MANAGEMENT DISCHARGE SUMMARY PATIENT: RAMIRO GORDON UNIT: [id number] ADM DATE: 09/27/18 AGE: 53 : 63 SEX: M ROOM/BED: D.1212 AUTHOR: ARINA,DOC PHYSICIAN: REFERRING PHYSICIAN: RICHARD MARIA MD DATE OF SERVICE: 10/07/18 Discharge Plan Patient Name: RAMIRO GORDON Facility: [facility]:[place] : 1965 Planned Disposition: Home Anticipated Discharge Date: 10/05/18 Discharge Date: 10/05/2018 Expected LOS: 8 Initial Reviewer: [email or web address] Initial Review Date: 09/29/2018 Generated: 10/07/18 10:51 am Comments DCP- Discharge Planning Updated by [id number]: Yuliya Araya on 10/05/18 10:[address] CM MET WITH THE PATIENT AT THE BEDSIDE THIS AM. HE PLANS TO DISCHARGE AFTER LUNCH TO A HOTEL ROOM HE HAS RECEIVED HIS CHECK. HIS BROTHER VISITED LAST EVENING AND WILL NOT ALLOW PATIENT TO RETURN TO THE BROTHER'S HOME. SEE NURSE'S DOCUMENTATION. NO DOCUMENTED REFERRAL TO A SKILLED FACILITY. WOULD LIKELY BE A DIFFICULT PLACEMENT DUE TO PATIENT'S AGE AND HISTORY. CM PROVIDED THE PATIENT WITH 4 BUS PASSES TO GET TO THE MD OFFICE FOR DRESSING CHANGES. NOTE THE PLAN IS FOR PATIENT TO GO TO DR MACK'S OFFICE FOR DRESSING CHANGES. CM REQUEST THE NURSE PROVIDE THE PATIENT WITH DRESSINGS IN CASE HE NEEDS TO DO CHANGES PRIOR TO MD VISIT. NURSE TO CALL IF PATIENT NEEDS [facility]AX[facility] TRANSPORT AT DISCHARGE. DCP- Discharge Planning Updated by [id number]: Dede Arizmendi on 10/03/18 4:[address] Patient Name: RAMIRO GORDON Admission Status: ER Accout number: [id number] Admission Date: 09-27-2018 : 1965 Admission Diagnosis:CUTANEOUS ABSCESS OF LEFT UPPER LIMB Attending: RICHARD LUZ Current LOS: 6 Anticipated DC Date: Planned Disposition: Primary Insurance: MEDICARE A & B Discharge Planning Comments: CM MET WITH PATIENT AGAIN ABOUT DC PLANNING/NEEDS. STATES WANTS TO DISCHARGE FROM HOSPITAL SO HE CAN GO RENT A PLACE TO STAY AND EITHER [facility] TO [facility] OR HH ONCE HE HAS AN ADDRESS. PATIENT CELL PHONE NUMBER IS [phone]. Pillow Agent: Dede Arizmendi DCP- Discharge Planning Updated by [id number]: Dede Arizmendi on 10/01/18 11:[address] Patient Name: RAMIRO GORDON Admission Status: ER Accout number: [id number] Admission Date: 09-27-2018 : 1965 Admission Diagnosis:CUTANEOUS ABSCESS OF LEFT UPPER LIMB Attending: RICHARD LUZ Current LOS: 4 Anticipated DC Date: Planned Disposition: Primary Insurance: MEDICARE A & B Discharge Planning Comments: CM MET WITH PATIENT ABOUT DC PLANNING. STATES HAS NO PLACE TO STAY UNTIL SATURDAY WHEN HE GETS HIS CHECK. STATES WHEN HE HAS A PLACE HE COULD USE [facility] BUT HAS NO ONE TO HELP HIM WITH DAILY DRESSING CHANGES. STATES IF NEEDS SNF WOULD LIKE [facility]. I WILL START THE REFERRAL PROCESS WHEN I FIND OUT WHICH HE WILL NEED. CM TO FOLLOW AND ASSIST NEEDED WITH DC PLANNING/NEEDS. Pillow Agent: Dede Arizmendi DCP- Discharge Planning Updated by [id number]: Dede Arizmendi on 09/29/18 1:[address] Patient Name: RAMIRO GORDON Admission Status: ER Accout number: [id number] Admission Date: 09-27-2018 : 1965 Admission Diagnosis: Attending: RICHARD LUZ Current LOS: 2 Anticipated DC Date: Planned Disposition: Primary Insurance: MEDICARE A & B Discharge Planning Comments: CM MET WITH PATIENT ABOUT DC PLANNING. UNSURE OF ANY NEEDS AT THIS TIME, PATIENT IS GOING TO SURGERY. CM WILL FOLLOW AND ASSIST NEEDED WITH DC PLANNING/NEEDS. Pillow Agent: Dede Arizmendi DCPIA - Discharge Planning Initial Assessment Updated by [email or web address]: Dede Arizmendi on 09/29/18 2:12 pm * Is the patient Alert and Oriented? Yes * PCP NONE BUT WANTS [place] * Pharmacy [facility] * Preadmission Environment Home Alone * ADLs Independent * List name and contact numbers for known caregivers / representatives who currently or will assist patient after discharge: MOTHER MART, * Can the patient safely return to the preadmission environment? Yes * Has this patient been hospitalized within the prior 30 days at any hospital? No Coverage Notice Reviewer: [id number] - Dede Arizmendi Notice Issued Date-Time: 10/01/2018 12:36 Notice Type: Patient Choice Letter Notice Delivered To: Patient Relationship to Patient: Self Director Safety Name: Delivery Method: HAND - Hand Delivered Argenis Days: Prior Verbal Notification: Recipient Understood Notice: Yes Recipient Signature: Yes Med Rec Note Co-signed by Attending: Coverage Notice Comment: [facility] SIGNED FOR [facility] ALEX SIGNED FOR [facility]. Last DP export: 10/05/18 10:40 am Patient Name: RAMIRO GORDON Page 23193 at 0951 All edits/amendments must be made on the electronic document DICTATION DATE: 10/07/18950 PLUMBER CUB: VIKTORIYA 10/07/18950 RPT#: [id number] DC DATE:10/05/18 STATUS: DIS IN [facility] [address] [place] [address] END OF REPORT
== END 2018-10-05 14:33 | disposition home or self-care (01) | DRG 603 ==
LOC: D.ER 11:18 → D.M3 15:43 → D.EDHOLD 15:43 → D.M3 15:59
PROVIDERS: Family Medicine; Internal Medicine Nephrology; Orthopaedic Surgery; Student in an Organized Health Care Education/Training Program; ADMIT Family Medicine Adult Medicine; ATTEND Family Medicine Adult Medicine
PROC: 0H9DXZZ Drainage of Right Lower Arm Skin, External Approach (ICD-10-PCS; 2018-09-29)
PROC: 0H9EXZZ Drainage of Left Lower Arm Skin, External Approach (ICD-10-PCS; principal; 2018-09-29 14:00)
DX: L02.414 Cutaneous abscess of left upper limb (principal); L02.413 Cutaneous abscess of right upper limb; F15.10 Other stimulant abuse, uncomplicated; L03.114 Cellulitis of left upper limb; L03.113 Cellulitis of right upper limb; B95.61 Methicillin susceptible Staphylococcus aureus infection as the cause of diseases classified elsewhere; D50.9 Iron deficiency anemia, unspecified; I08.1 Rheumatic disorders of both mitral and tricuspid valves

== ENCOUNTER 2018-11-15 15:47 | Inpatient (IN) | payer MEDICARE ==
[~2018-11-15 15:47] MED LIST: HYDROCODON-ACE1 EAC7 PO; VIBRAMYCIN 100100 MG PO
[2018-11-15 16:46] LABS: BASOPHILS 0.1 % (0-2); HEMATOCRIT 33.5 % (42.0-54.0); HEMOGLOBIN 11.9 g/dL (13.5-17.5); IMMATURE GRANULOCYTES 0.2 % (0-5); LYMPHOCYTES 13.8 % (15-50); MCH 32.1 pg (26.0-34.0); MCHC 35.5 g/dL (31.0-37.0); MCV 90.3 fL (80.0-100.0); MEAN PLATELET VOLUME 9.4 fL (7.4-10.4); MONOCYTES 11.8 % (2-11); NEUTROPHILS 73.1 % (40-80); RBC 3.71 10x6/uL (4.20-6.10); RDW 12.4 % (11.5-14.5); WBC 9.4 10x3/uL (4.8-10.8)
[2018-11-15 16:47] LABS: PLATELET COUNT 199 10x3/uL (130-400)
[2018-11-15 17:01] LABS: ALBUMIN 3.4 g/dL (3.4-5.0); ALKALINE PHOSPHATASE 96 U/L (46-116); ALT (SGPT) 104 U/L (10-68); BILIRUBIN - TOTAL 0.83 mg/dL (0.2-1.3); CALC OSMOLALITY 265 mosm/kg (275-300); CHLORIDE - SERUM 99 mmol/L (98-107); CREATININE - SERUM 0.6 mg/dL (0.6-1.3); GLUCOSE 114 mg/dL (74-106); POTASSIUM - SERUM 3.1 mmol/L (3.5-5.1); SODIUM 133 mmol/L (136-145); UREA NITROGEN 9 mg/dL (7-18); eGFR NON AFRICAN AMERICAN > 90 mL/min (90-120)
--- NOTE | 2018-11-15 19:25 | MORECARE ---
CASE MANAGEMENT DISCHARGE SUMMARY PATIENT: RAMIRO GORDON UNIT: [id number] ADM DATE: 11/15/18 AGE: 53 : 63 SEX: M ROOM/BED: D.1204 AUTHOR: EVONNE SANTA PHYSICIAN: REFERRING PHYSICIAN: PRIMITIVO CARBAJAL MD DATE OF SERVICE: 11/15/18 Discharge Plan Patient Name: RAMIRO GORDON [facility] : 1965 Planned Disposition: Home Anticipated Discharge Date: 11/18/18 Discharge Date: Expected LOS: 3 Initial Reviewer: [email or web address] Initial Review Date: 11/15/2018 Generated: 11/15/18 8:25 pm DCPIA - Discharge Planning Initial Assessment Updated by [email or web address]: Farrah Valencia on 11/15/18 7:24 pm * Is the patient Alert and Oriented? Yes * How many steps to enter\exit or inside your home? None * PCP Said he doesn't have one but said he saw Dr. Fleming in September. * Pharmacy [facility] [address] * Preadmission Environment Home with Family * ADLs Independent * Equipment Cane * List name and contact numbers for known caregivers / representatives who currently or will assist patient after discharge: Thalia Flores [facility] [phone] * Verbal permission to speak to the caregivers and representatives has been obtained from the patient. Yes * Community resources currently utilized None * Additional services required to return to the preadmission environment? No * Can the patient safely return to the preadmission environment? Yes * Has this patient been hospitalized within the prior 30 days at any hospital? No Patient Name: RAMIRO GORDON Page 30156 at 1925 All edits/amendments must be made on the electronic document DICTATION DATE: 11/15/181924 PUMP SERVICER SUPERVISOR: VIKTORIYA 11/15/181924 RPT#: [id number] DC DATE: STATUS: ADM IN [facility] [address] [place] [address] END OF REPORT
--- NOTE | 2018-11-15 19:32 | MORECARE ---
CASE MANAGEMENT DISCHARGE SUMMARY PATIENT: RAMIRO GORDON UNIT: [id number] ADM DATE: 11/15/18 AGE: 53 : 63 SEX: M ROOM/BED: D.1204 AUTHOR: ARINA,DOC PHYSICIAN: REFERRING PHYSICIAN: PRIMITIVO CARBAJAL MD DATE OF SERVICE: 11/15/18 Discharge Plan Patient Name: RAMIRO GORDON Facility: [facility]:[place] : 1965 Planned Disposition: Home Anticipated Discharge Date: 11/18/18 Discharge Date: Expected LOS: 3 Initial Reviewer: [email or web address] Initial Review Date: 11/15/2018 Generated: 11/15/18 8:32 pm DCP- Discharge Planning Updated by [email or web address]: Farrah Valencia on 11/15/18 6:[address] Patient Name: RAMIRO GORDON Admission Status: ER Accout number: [id number] Admission Date: 11-15-2018 : 1965 Admission Diagnosis: Attending: PRIMITIVO CARBAJAL Current LOS: 1 Anticipated DC Date: 11-18-2018 Planned Disposition: Home Primary Insurance: MEDICARE A & B Discharge Planning Comments: CM met with patient to complete initial dc planning assessment. CM educated patient on the CM role and verbal consent given by patient to complete assessment. Patient reports he and his mother got into an argument so he has been staying at [facility]. Patient is IV meth user and has multiple red areas to his arm and a infection to his finger. He said he doesnt shoot up in his fingers so it must be a spider bite. CM talked with him about his drug problem and he stated he is about done with it. He has been shooting up meth for 10 years. He was willing to take information on drug rehabs which cm gave him. He stated he may go to a few meeting and get his life together. At discharge patient plans to return to [facility] and feels this is a safe discharge. CM discussed availability of home health, rehab services, and medical equipment. Patient denied known discharge needs at this time. CM will continue to follow and will assist as needed with dc plans/needs. Station Detective: Farrah Valencia RN, [facility] DCPIA - Discharge Planning Initial Assessment Updated by [email or web address]: Farrah Valencia on 11/15/18 7:24 pm * Is the patient Alert and Oriented? Yes * How many steps to enter\exit or inside your home? None * PCP Said he doesn't have one but said he saw Dr. Fleming in September. * Pharmacy [facility] [address] * Preadmission Environment Home with Family * ADLs Independent * Equipment Cane * List name and contact numbers for known caregivers / representatives who currently or will assist patient after discharge: Thalia Flores - [facility] - [phone] * Verbal permission to speak to the caregivers and representatives has been obtained from the patient. Yes * Community resources currently utilized None * Additional services required to return to the preadmission environment? No * Can the patient safely return to the preadmission environment? Yes * Has this patient been hospitalized within the prior 30 days at any hospital? No Last DP export: 11/15/18 6:25 p Patient Name: RAMIRO GORDON Page 57372 at 1932 All edits/amendments must be made on the electronic document DICTATION DATE: 11/15/181930 3D DESIGNER: VIKTORIYA 11/15/181930 RPT#: [id number] DC DATE: STATUS: ADM IN [facility] [address] [place] [address] END OF REPORT
[2018-11-15 20:00] VITALS: BP 125/80
[2018-11-16] VITALS: BP 115/59
[2018-11-16 06:31] VITALS: BP 125/80; BMI 23.6
[2018-11-16 06:53] VITALS: BP 100/57
[2018-11-16 08:08] VITALS: BP 106/59
[2018-11-16 13:15] VITALS: BP 105/60
[2018-11-16 19:53] LABS: % SATURATION 15 % (15-55); IRON 28 ug/dl (35-150); TOTAL IRON BIND CAPACITY 185 ug/dl (260-445); UNSAT IRON BIND CAPACITY 157 ug/dl (150-375)
[2018-11-16 20:08] VITALS: BP 107/60
[2018-11-16 22:23] LABS: APPEARANCE CLEAR (CLEAR); BILIRUBIN 1+ (NEGATIVE); COLOR YELLOW (YELLOW); GLUCOSE NEGATIVE (NEGATIVE); KETONE NEGATIVE (NEGATIVE); NITRITE NEGATIVE (NEGATIVE); PROTEIN NEGATIVE (NEGATIVE)
[2018-11-16 22:32] LABS: UDS - AMPHET POSITIVE QUAL (NEGATIVE); UDS - BARB NEGATIVE QUAL (NEGATIVE); UDS - BENZO NEGATIVE QUAL (NEGATIVE); UDS - COCAINE NEGATIVE QUAL (NEGATIVE); UDS - OPIATE POSITIVE QUAL (NEGATIVE); UDS - PCP NEGATIVE QUAL (NEGATIVE); UDS - THC NEGATIVE QUAL (NEGATIVE)
[2018-11-17 00:30] VITALS: BP 88/38
[2018-11-17 05:45] VITALS: BP 100/64
[2018-11-17 08:00] VITALS: BP 117/67
[2018-11-17 12:00] VITALS: BP 110/54
--- NOTE | 2018-11-17 13:12 | MORECARE ---
CASE MANAGEMENT DISCHARGE SUMMARY PATIENT: RAMIRO GORDON UNIT: [id number] ADM DATE: 11/15/18 AGE: 53 : 63 SEX: M ROOM/BED: D.1204 AUTHOR: ARINA,DOC PHYSICIAN: REFERRING PHYSICIAN: PRIMITIVO CARBAJAL MD DATE OF SERVICE: 11/17/18 Discharge Plan Patient Name: RAMIRO GORDON Facility: [facility]:[place] : 1965 Planned Disposition: Home Anticipated Discharge Date: 11/18/18 Discharge Date: Expected LOS: 3 Initial Reviewer: [id number] Initial Review Date: 11/15/2018 Generated: 11/17/18 2:12 pm Comments DCP- Discharge Planning Updated by [email or web address]: Yuliya Araya on 11/17/18 12:[address] CM MET WITH PATIENT IN THE ROOM. HE IS SITTING IN THE CHAIR AT THE BEDSIDE IN HIS BRIEF.. PATIENT KNOWN FROM PREVIOUS ADMIT. CM EXPLAINED MY ROLE CENTRAL OFFICE EQUIPMENT INSTALLER. QUESTIONED WHERE HE WILL BE DISCHARGE TO IN CASE HE NEEDS SERVICES. PREVIOUSLY HE WAS DISCHARGED TO A [facility] AND GIVEN BUS PASSES FOR TRANSPORTATION TO MD OFFICE FOR DRESSING CHANGES. HE STATES HE IS LIVING IN HIS CAR W/ HIS DOG. HIS BROTHER CAME TO GET THE DOG OUT OF THE CAR YESTERDAY. HE NO LONGER HAS A PHONE BECAUSE IT WAS STOLEN IN [place]. HE DID NOT REPORT IT TO THE POLICE BECAUSE IT WAS A TRAC PHONE. HE STATES HE IS HOSPITALIZED FOR A "SPIDER BITE". DOES NOT KNOW AT THIS TIME WHERE HE WILL GO AT D/C. HE AND HIS MOTHER, BARRON FLORES, HAD A DISAGREEMENT. HE AND HIS BROTHER ALSO HAD A DISAGREEMENT. NO PCP. PHARMACY- [facility]. AWAIT MD PLAN. PATIENT IS ON CONTACT ISOLATION FOR MRSA. CM TO FOLLOW TO ASSIST W/ DISCHARGE PLANNING NEEDS. DCP- Discharge Planning Updated by [id number]: Farrah Valencia on 11/15/18 6:[address] Patient Name: RAMIRO GORDON Admission Status: ER Accout number: [id number] Admission Date: 11-15-2018 : 1965 Admission Diagnosis: Attending: PRIMITIVO CARBAJAL Current LOS: 1 Anticipated DC Date: 11-18-2018 Planned Disposition: Home Primary Insurance: MEDICARE A & B Discharge Planning Comments: CM met with patient to complete initial dc planning assessment. CM educated patient on the CM role and verbal consent given by patient to complete assessment. Patient reports he and his mother got into an argument so he has been staying at [facility]. Patient is IV meth user and has multiple red areas to his arm and a infection to his finger. He said he doesnt shoot up in his fingers so it must be a spider bite. CM talked with him about his drug problem and he stated he is about done with it. He has been shooting up meth for 10 years. He was willing to take information on drug rehabs which cm gave him. He stated he may go to a few meeting and get his life together. At discharge patient plans to return to [facility] and feels this is a safe discharge. CM discussed availability of home health, rehab services, and medical equipment. Patient denied known discharge needs at this time. CM will continue to follow and will assist as needed with dc plans/needs. Mop Worker: Farrah Valencia RN, [facility] DCPIA - Discharge Planning Initial Assessment Updated by [email or web address]: Farrah Valencia on 11/15/18 7:24 pm * Is the patient Alert and Oriented? Yes * How many steps to enter\\exit or inside your home? None * PCP Said he doesn't have one but said he saw Dr. Fleming in September. * Pharmacy [facility] on [address] * Preadmission Environment Home with Family * ADLs Independent * Equipment Cane * List name and contact numbers for known caregivers / representatives who currently or will assist patient after discharge: Barron Flores - mother - [phone] * Verbal permission to speak to the caregivers and representatives has been obtained from the patient. Yes * Community resources currently utilized None * Additional services required to return to the preadmission environment? No * Can the patient safely return to the preadmission environment? Yes * Has this patient been hospitalized within the prior 30 days at any hospital? No Last DP export: 11/15/18 6:32 p Patient Name: RAMIRO GORDON Page 03309 at 1312 All edits/amendments must be made on the electronic document DICTATION DATE: 11/17/18 131 SUPERVISOR STEEL DIVISION: VIKTORIYA 11/17/18 1311 RPT#: [id number] DC DATE: STATUS: ADM IN [facility] [address] [place] [address] END OF REPORT
[2018-11-17 13:17] VITALS: BMI 23.6
[2018-11-17 16:00] VITALS: BP 124/72
[2018-11-17 21:00] VITALS: BP 127/73
[2018-11-18 00:55] VITALS: BP 108/96
[2018-11-18 04:05] VITALS: BP 107/40
[2018-11-18 07:22] LABS: BASOPHILS 0.4 % (0-2); EOSINOPHILS 6.5 % (0-7); HEMATOCRIT 33.5 % (42.0-54.0); HEMOGLOBIN 11.2 g/dL (13.5-17.5); IMMATURE GRANULOCYTES 0.2 % (0-5); LYMPHOCYTES 22.7 % (15-50); MCH 31.2 pg (26.0-34.0); MCHC 33.4 g/dL (31.0-37.0); MCV 93.3 fL (80.0-100.0); MEAN PLATELET VOLUME 9.7 fL (7.4-10.4); MONOCYTES 7.7 % (2-11); NEUTROPHILS 62.5 % (40-80); PLATELET COUNT 206 10x3/uL (130-400); RBC 3.59 10x6/uL (4.20-6.10); RDW 12.6 % (11.5-14.5); WBC 4.8 10x3/uL (4.8-10.8)
[2018-11-18 07:42] LABS: ALBUMIN 2.6 g/dL (3.4-5.0); ALKALINE PHOSPHATASE 75 U/L (46-116); ALT (SGPT) 80 U/L (10-68); BILIRUBIN - TOTAL 0.28 mg/dL (0.2-1.3); CALC OSMOLALITY 276 mosm/kg (275-300); CARBON DIOXIDE 27.6 mmol/L (21.0-32.0); CHLORIDE - SERUM 105 mmol/L (98-107); CREATININE - SERUM 0.5 mg/dL (0.6-1.3); GLUCOSE 105 mg/dL (74-106); POTASSIUM - SERUM 3.7 mmol/L (3.5-5.1); PROTEIN - SERUM 6.8 g/dL (6.4-8.2); SODIUM 140 mmol/L (136-145); UREA NITROGEN 6 mg/dL (7-18); eGFR NON AFRICAN AMERICAN > 90 mL/min (90-120)
[2018-11-18 11:00] LABS: FOLATE (FOLIC ACID) - SERUM 9.5 ng/mL (>3.0)
[2018-11-18 12:48] VITALS: BP 121/64
[2018-11-18 15:29] VITALS: BP 136/69
[2018-11-18 20:00] VITALS: BP 113/52
[2018-11-19] VITALS: BP 128/69
[2018-11-19 04:00] VITALS: BP 134/74
[2018-11-19 06:45] LABS: BASOPHILS 0.5 % (0-2); EOSINOPHILS 6.5 % (0-7); HEMATOCRIT 34.4 % (42.0-54.0); HEMOGLOBIN 11.6 g/dL (13.5-17.5); IMMATURE GRANULOCYTES 0.2 % (0-5); LYMPHOCYTES 33.3 % (15-50); MCH 31.4 pg (26.0-34.0); MCHC 33.7 g/dL (31.0-37.0); MEAN PLATELET VOLUME 9.4 fL (7.4-10.4); MONOCYTES 7.2 % (2-11); NEUTROPHILS 52.3 % (40-80); PLATELET COUNT 238 10x3/uL (130-400); RDW 12.6 % (11.5-14.5); WBC 4.3 10x3/uL (4.8-10.8)
[2018-11-19 07:17] LABS: ALBUMIN 2.6 g/dL (3.4-5.0); ALKALINE PHOSPHATASE 74 U/L (46-116); ALT (SGPT) 82 U/L (10-68); BILIRUBIN - TOTAL 0.29 mg/dL (0.2-1.3); CALC OSMOLALITY 278 mosm/kg (275-300); CALCIUM 8.1 mg/dL (8.5-10.1); CARBON DIOXIDE 26.7 mmol/L (21.0-32.0); CHLORIDE - SERUM 106 mmol/L (98-107); CREATININE - SERUM 0.5 mg/dL (0.6-1.3); GLUCOSE 96 mg/dL (74-106); POTASSIUM - SERUM 3.6 mmol/L (3.5-5.1); PROTEIN - SERUM 7.2 g/dL (6.4-8.2); SODIUM 141 mmol/L (136-145); UREA NITROGEN 6 mg/dL (7-18); eGFR NON AFRICAN AMERICAN > 90 mL/min (90-120)
[2018-11-19 09:21] VITALS: BP 131/74
[2018-11-19 11:35] VITALS: BP 150/77
[2018-11-19] MEDS ORDERED: DOXYCYCLINE HY100 M2 PO (11:48)
[2018-11-19] MEDS ORDERED: FLORAJEN3 CAPS460 MG PO (11:49)
--- NOTE | 2018-11-19 14:39 | MORECARE ---
CASE MANAGEMENT DISCHARGE SUMMARY PATIENT: RAMIRO GORDON UNIT: [id number] ADM DATE: 11/15/18 AGE: 53 : 63 SEX: M ROOM/BED: D.1204 AUTHOR: ARINADOC PHYSICIAN: REFERRING PHYSICIAN: PRIMITIVO CARBAJAL MD DATE OF SERVICE: 11/19/18 Discharge Plan Patient Name: RAMIRO GORDON Facility: [facility]:[place] : 1965 Planned Disposition: Home Anticipated Discharge Date: 11/18/18 Discharge Date: Expected LOS: 3 Initial Reviewer: [email or web address] Initial Review Date: 11/15/2018 Generated: 11/19/18 3:39 pm Comments DCP- Discharge Planning Updated by [id number]: Lizzy Silvestre on 11/19/18 1:[address] Patient Name: RAMIRO GORDON Encounter No: [id number] : 1965 Primary Insurance: MEDICARE A & B Anticipated DC Date: 11-18-2018 Planned Disposition: Home External Planned Provider: : DCP follow-up note: Patient in agreement with discharge plan. CM explained and served DC IMM. No changes to plan. Case management will follow and assist as needed. Lizzy Silvestre DCP- Discharge Planning Updated by [email or web address]: Yuliya Araya on 11/17/18 12:[address] CM MET WITH PATIENT IN THE ROOM. HE IS SITTING IN THE CHAIR AT THE BEDSIDE IN HIS BRIEF.. PATIENT KNOWN FROM PREVIOUS ADMIT. CM EXPLAINED MY ROLE CLINICAL STAFF PHARMACIST. QUESTIONED WHERE HE WILL BE DISCHARGE TO IN CASE HE NEEDS SERVICES. PREVIOUSLY HE WAS DISCHARGED TO A [facility] AND GIVEN BUS PASSES FOR TRANSPORTATION TO MD OFFICE FOR DRESSING CHANGES. HE STATES HE IS LIVING IN HIS CAR W/ HIS DOG. HIS BROTHER CAME TO GET THE DOG OUT OF THE CAR YESTERDAY. HE NO LONGER HAS A PHONE BECAUSE IT WAS STOLEN IN [place]. HE DID NOT REPORT IT TO THE POLICE BECAUSE IT WAS A Patience PHONE. HE STATES HE IS HOSPITALIZED FOR A "SPIDER BITE". DOES NOT KNOW AT THIS TIME WHERE HE WILL GO AT D/C. HE AND HIS MOTHER, BARRON FLORES, HAD A DISAGREEMENT. HE AND HIS BROTHER ALSO HAD A DISAGREEMENT. NO PCP. PHARMACY- [facility] W/ A CANE. AWAIT MD PLAN. PATIENT IS ON CONTACT ISOLATION FOR MRSA. CM TO FOLLOW TO ASSIST W/ DISCHARGE PLANNING NEEDS. DCP- Discharge Planning Updated by [id number]: Farrah Valencia on 11/15/18 6:[address] Patient Name: RAMIRO GORDON Admission Status: ER Accout number: [id number] Admission Date: 11-15-2018 : 1965 Admission Diagnosis: Attending: PRIMITIVO CARBAJAL Current LOS: 1 Anticipated DC Date: 11-18-2018 Planned Disposition: Home Primary Insurance: MEDICARE A & B Discharge Planning Comments: CM met with patient to complete initial dc planning assessment. CM educated patient on the CM role and verbal consent given by patient to complete assessment. Patient reports he and his mother got into an argument so he has been staying at [facility]. Patient is IV meth user and has multiple red areas to his arm and a infection to his finger. He said he doesnt shoot up in his fingers so it must be a spider bite. CM talked with him about his drug problem and he stated he is about done with it. He has been shooting up meth for 10 years. He was willing to take information on drug rehabs which cm gave him. He stated he may go to a few meeting and get his life together. At discharge patient plans to return to [facility] and feels this is a safe discharge. CM discussed availability of home health, rehab services, and medical equipment. Patient denied known discharge needs at this time. CM will continue to follow and will assist as needed with dc plans/needs. Architectural Wood Model Maker: Farrah Valencia RN, [facility] DCPIA - Discharge Planning Initial Assessment Updated by [email or web address]: Farrah Valencia on 11/15/18 7:24 pm * Is the patient Alert and Oriented? Yes * How many steps to enter\\exit or inside your home? None * PCP Said he doesn't have one but said he saw Dr. Fleming in September. * Pharmacy [facility] [address] * Preadmission Environment Home with Family * ADLs Independent * Equipment Cane * List name and contact numbers for known caregivers / representatives who currently or will assist patient after discharge: Barron Flores - mother - [phone] * Verbal permission to speak to the caregivers and representatives has been obtained from the patient. Yes * Community resources currently utilized None * Additional services required to return to the preadmission environment? No * Can the patient safely return to the preadmission environment? Yes * Has this patient been hospitalized within the prior 30 days at any hospital? No Coverage Notice Reviewer: [email or web address] Breanne Silvestre Notice Issued Date-Time: 11/19/2018 14:00 Notice Type: IM Discharge Notice Notice Delivered To: Patient Relationship to Patient: Self Linux Kernel Engineer Name: Delivery Method: HAND - Hand Delivered Argenis Days: Prior Verbal Notification: Recipient Understood Notice: Yes Recipient Signature: Yes Med Rec Note Co-signed by Attending: Coverage Notice Comment: Last DP export: 11/17/18 12:12 p Patient Name: RAMIRO GORDON Page 87502 at 1439 All edits/amendments must be made on the electronic document DICTATION DATE: 11/19/181438 CAMPAIGN DEVELOPER: VIKTORIYA 11/19/181438 RPT#: [id number] DC DATE: STATUS: ADM IN [facility] [address] [place] [address] END OF REPORT
--- NOTE | 2018-11-19 16:15 | MORECARE ---
CASE MANAGEMENT DISCHARGE SUMMARY PATIENT: RAMIRO GORDON UNIT: [id number] ADM DATE: 11/15/18 AGE: 53 : 63 SEX: M ROOM/BED: D.1204 AUTHOR: ARINA,DOC PHYSICIAN: REFERRING PHYSICIAN: PRIMITIVO CARBAJAL MD DATE OF SERVICE: 11/19/18 Discharge Plan Patient Name: RAMIRO GORDON Facility: [facility]:[place] : 1965 Planned Disposition: Home Anticipated Discharge Date: 11/18/18 Discharge Date: 11/19/2018 Expected LOS: 3 Initial Reviewer: [email or web address] Initial Review Date: 11/15/2018 Generated: 11/19/18 5:15 pm Comments DCP- Discharge Planning Updated by [email or web address]: Lizzy Silvestre on 11/19/18 1:[address] Patient Name: RAMIRO GORDON Encounter No: [id number] : 1965 Primary Insurance: MEDICARE A & B Anticipated DC Date: 11-18-2018 Planned Disposition: Home External Planned Provider: : DCP follow-up note: Patient in agreement with discharge plan. CM explained and served DC IMM. No changes to plan. Case management will follow and assist as needed. Lizzy Silvestre DCP- Discharge Planning Updated by [email or web address]: Yuliya Araya on 11/17/18 12:[address] CM MET WITH PATIENT IN THE ROOM. HE IS SITTING IN THE CHAIR AT THE BEDSIDE IN HIS BRIEF.. PATIENT KNOWN FROM PREVIOUS ADMIT. CM EXPLAINED MY ROLE CRECHE ATTENDANT. QUESTIONED WHERE HE WILL BE DISCHARGE TO IN CASE HE NEEDS SERVICES. PREVIOUSLY HE WAS DISCHARGED TO A [facility] AND GIVEN BUS PASSES FOR TRANSPORTATION TO MD OFFICE FOR DRESSING CHANGES. HE STATES HE IS LIVING IN HIS CAR W/ HIS DOG. HIS BROTHER CAME TO GET THE DOG OUT OF THE CAR YESTERDAY. HE NO LONGER HAS A PHONE BECAUSE IT WAS STOLEN IN [place]. HE DID NOT REPORT IT TO THE POLICE BECAUSE IT WAS A [employer]ian[employer] PHONE. HE STATES HE IS HOSPITALIZED FOR A "SPIDER BITE". DOES NOT KNOW AT THIS TIME WHERE HE WILL GO AT D/C. HE AND HIS MOTHER, BARRON FLORES, HAD A DISAGREEMENT. HE AND HIS BROTHER ALSO HAD A DISAGREEMENT. NO PCP. PHARMACY- [facility] W/ A CANE. AWAIT MD PLAN. PATIENT IS ON CONTACT ISOLATION FOR MRSA. CM TO FOLLOW TO ASSIST W/ DISCHARGE PLANNING NEEDS. DCP- Discharge Planning Updated by [email or web address]: Farrah Valencia on 11/15/18 6:[address] Patient Name: RAMIRO GORDON Admission Status: ER Accout number: [id number] Admission Date: 11-15-2018 : 1965 Admission Diagnosis: Attending: PRIMITIVO CARBAJAL Current LOS: 1 Anticipated DC Date: 11-18-2018 Planned Disposition: Home Primary Insurance: MEDICARE A & B Discharge Planning Comments: CM met with patient to complete initial dc planning assessment. CM educated patient on the CM role and verbal consent given by patient to complete assessment. Patient reports he and his mother got into an argument so he has been staying at [facility]. Patient is IV meth user and has multiple red areas to his arm and a infection to his finger. He said he doesnt shoot up in his fingers so it must be a spider bite. CM talked with him about his drug problem and he stated he is about done with it. He has been shooting up meth for 10 years. He was willing to take information on drug rehabs which cm gave him. He stated he may go to a few meeting and get his life together. At discharge patient plans to return to [facility] and feels this is a safe discharge. CM discussed availability of home health, rehab services, and medical equipment. Patient denied known discharge needs at this time. CM will continue to follow and will assist as needed with dc plans/needs. Shoe Patternmaker: Farrah Valencia RN, [facility] DCPIA - Discharge Planning Initial Assessment Updated by [id number]: Farrah Valencia on 11/15/18 7:24 pm * Is the patient Alert and Oriented? Yes * How many steps to enter\\exit or inside your home? None * PCP Said he doesn't have one but said he saw Dr. Fleming in September. * Pharmacy [facility] [address] * Preadmission Environment Home with Family * ADLs Independent * Equipment Cane * List name and contact numbers for known caregivers / representatives who currently or will assist patient after discharge: Barron Flores - mother - [phone] * Verbal permission to speak to the caregivers and representatives has been obtained from the patient. Yes * Community resources currently utilized None * Additional services required to return to the preadmission environment? No * Can the patient safely return to the preadmission environment? Yes * Has this patient been hospitalized within the prior 30 days at any hospital? No Coverage Notice Reviewer: [id number] Breanne Silvestre Notice Issued Date-Time: 11/19/2018 14:00 Notice Type: IM Discharge Notice Notice Delivered To: Patient Relationship to Patient: Self Boatbuilder Supervisor Name: Delivery Method: HAND - Hand Delivered Argenis Days: Prior Verbal Notification: Recipient Understood Notice: Yes Recipient Signature: Yes Med Rec Note Co-signed by Attending: Coverage Notice Comment: Last DP export: 11/19/18 1:39 p Patient Name: RAMIRO GORDON Page [id number] at 1615 All edits/amendments must be made on the electronic document DICTATION DATE: 11/19/181614 WASTE MANAGEMENT RECYCLING TECHNICIAN: VIKTORIYA 11/19/18 1615 RPT#: [id number] DC DATE:11/19/18 STATUS: DIS IN [facility] [address] [place] [address] END OF REPORT
== END 2018-11-19 14:20 | disposition home or self-care (01) | DRG 513 ==
LOC: D.ER 15:47 → D.EDHOLD 18:54 → D.M3 19:05
PROVIDERS: Emergency Medicine; Orthopaedic Surgery; ADMIT Internal Medicine Nephrology
PROC: 3E1U38Z Irrigation of Joints using Irrigating Substance, Percutaneous Approach (ICD-10-PCS; 2018-11-16)
PROC: 0J9J0ZZ Drainage of Right Hand Subcutaneous Tissue and Fascia, Open Approach (ICD-10-PCS; principal; 2018-11-16 12:13)
DX: M65.841 Other synovitis and tenosynovitis, right hand (principal); M00.9 Pyogenic arthritis, unspecified; E87.1 Hypo-osmolality and hyponatremia; F17.213 Nicotine dependence, cigarettes, with withdrawal; L03.011 Cellulitis of right finger; D50.9 Iron deficiency anemia, unspecified; E87.6 Hypokalemia; F15.229 Other stimulant dependence with intoxication, unspecified

== ENCOUNTER → 2019-04-14 10:12 | Outpatient (CLI) | payer MEDICARE ==
[~2019-04-14 10:12] MED LIST changes: +DOXYCYCLINE HY100 M2 PO; +FLORAJEN3 CAPS460 MG PO
== END | disposition home or self-care (01) ==
LOC: D.MRI 10:12
PROVIDERS: ATTEND Orthopaedic Surgery
DX: M25.551 Pain in right hip (principal)

== ENCOUNTER 2019-04-27 16:35 | Inpatient (IN) | payer MEDICARE ==
[~2019-04-27] VITALS: Ht 175.3 cm; Wt 72.7 kg
[2019-04-29 11:49] LABS: BASOPHILS 0.7 % (0-2); EOSINOPHILS 4.3 % (0-7); HEMOGLOBIN 13.2 g/dL (13.5-17.5); IMMATURE GRANULOCYTES 0.2 % (0-5); LYMPHOCYTES 35.2 % (15-50); MCH 32.3 pg (26.0-34.0); MCHC 34.7 g/dL (31.0-37.0); MCV 92.9 fL (80.0-100.0); MEAN PLATELET VOLUME 9.6 fL (7.4-10.4); MONOCYTES 9.3 % (2-11); NEUTROPHILS 50.3 % (40-80); PLATELET COUNT 192 10x3/uL (130-400); RBC 4.09 10x6/uL (4.20-6.10); WBC 4.2 10x3/uL (4.8-10.8)
[2019-04-29 12:06] LABS: CALC OSMOLALITY 275 mosm/kg (275-300); CALCIUM 8.5 mg/dL (8.5-10.1); CARBON DIOXIDE 27.3 mmol/L (21.0-32.0); CHLORIDE - SERUM 104 mmol/L (98-107); CREATININE - SERUM 0.6 mg/dL (0.6-1.3); GLUCOSE 82 mg/dL (74-106); POTASSIUM - SERUM 4.3 mmol/L (3.5-5.1); SODIUM 139 mmol/L (136-145); UREA NITROGEN 11 mg/dL (7-18); eGFR NON AFRICAN AMERICAN > 90 mL/min (90-120)
[2019-04-29 12:09] LABS: APTT 36.4 SECONDS (22.8-39.4); INR 0.98 (0.85-1.17); PROTIME 12.5 SECONDS (11.6-15.0)
[2019-04-29 12:30] LABS: APPEARANCE CLEAR (CLEAR); BILIRUBIN NEGATIVE (NEGATIVE); COLOR YELLOW (YELLOW); GLUCOSE NEGATIVE (NEGATIVE); KETONE NEGATIVE (NEGATIVE); NITRITE NEGATIVE (NEGATIVE); PROTEIN NEGATIVE (NEGATIVE); UROBILINOGEN NORMAL (NORMAL)
[2019-05-06] VITALS (11 sets, daily range): BP systolic 90–160; BP diastolic 50–77; Ht 175.3 cm; Wt 72.7 kg
--- NOTE | 2019-05-06 13:45 | NUR ---
PATIENT ADMITTED TO ROOM 2237. PREVINA WOUND VAC PRESENT TO RIGHT HIP. FALL PRECAUTIONS IN PLACE. MONITORING VITALS. URINAL GIVEN TO PATIENT. SUPPLIES FOR URINE SPECIMEN COLLECTION GIVEN TO PATIENT. EDUCATION PROVIDED VERBALIZED UNDERSTANDING. IV TO LEFT HAND PATENT WITHOUT REDNESS. DENIES NEEDS AT THIS TIME. WILL CONTINUE TO MONITOR.
--- NOTE | 2019-05-06 15:16 | NUR ---
PATIENT SLEEPING. WILL CONTINUE TO MONITOR.
--- NOTE | 2019-05-06 16:05 | NUR ---
PATIENT SLEEPING. VITALS REMAIN STABLE. WILL CONTINUE TO MONITOR.
--- NOTE | 2019-05-06 19:03 | NUR ---
PATIENT C/O UNABLE TO URINATE BUT FEELS LIKE NEEDS TO URINATE. BLADDER SCAN PERFORMED. [address] BRUCE, TECHNOLOGY OFFICER DOCTOR, NOTIFIED. STATES IN AND OUT CATH Q6HR X 2 PRN. STATES IF MORE THAN TWICE, PLACE GIRON. IN AND OUT CATH PERFORMED. 500ML NOTED TO BAG.
--- NOTE | 2019-05-06 20:41 | NUR ---
AWAKE,ALERT.NO COMPLAITNS VOICED. RESP EVEN AND UNLABORED. WOUND VAC TO RIGHT HIP INTACT. IV TO RFA WITHOUT REDNESS OR EDEMA NOTED. CL IN REACH
[2019-05-07 04:00] VITALS: BP 93/44
--- NOTE | 2019-05-07 04:39 | NUR ---
UNABLE TO VOID. IN AND OUT CATH WITH 500 CC DARK RUSS URINE RETURNED.. CL IN REACH
[2019-05-07 05:15] LABS: BASOPHILS 0 % (0-2); EOSINOPHILS 0 % (0-7); HEMOGLOBIN 9.1 g/dL (13.5-17.5); IMMATURE GRANULOCYTES 0.3 % (0-5); MCH 31.8 pg (26.0-34.0); MCHC 33.7 g/dL (31.0-37.0); MCV 94.4 fL (80.0-100.0); MEAN PLATELET VOLUME 9.9 fL (7.4-10.4); MONOCYTES 7.4 % (2-11); NEUTROPHILS 85.3 % (40-80); PLATELET COUNT 226 10x3/uL (130-400); RBC 2.86 10x6/uL (4.20-6.10); RDW 12.8 % (11.5-14.5); WBC 10.8 10x3/uL (4.8-10.8)
[2019-05-07 05:29] LABS: CALC OSMOLALITY 272 mosm/kg (275-300); CARBON DIOXIDE 26.5 mmol/L (21.0-32.0); CHLORIDE - SERUM 102 mmol/L (98-107); CREATININE - SERUM 0.7 mg/dL (0.6-1.3); POTASSIUM - SERUM 4.6 mmol/L (3.5-5.1); SODIUM 135 mmol/L (136-145); UREA NITROGEN 14 mg/dL (7-18); eGFR NON AFRICAN AMERICAN > 90 mL/min (90-120)
[2019-05-07 05:38] LABS: GLUCOSE 139 mg/dL (74-106)
--- NOTE | 2019-05-07 07:20 | NUR ---
ALERT AND ORIENTED. LUNGS CLEAR BILATERALLY IN ALL LOGAN. HEART SOUNDS S1 AND S2 HEARD IN ALL LOGAN. BOWEL SOUNDS ACTIVE X 4. PREVINA WOUND VAC TO RIGHT HIP FROM RTHA YESTERDAY. SKIN OTHERWISE INTACT WITHOUT REDNESS. HAD TO HAVE SECOND IN AND OUT CATH AT 0400 TODAY. IF NO URINE OUTPUT BY 1000, WILL PLACE GIRON PER DR BRUCE ORDER. IV TO LEFT HAND PATENT WITHOUT REDNESS. DENIES NEEDS. BED LOW. FALL PRECAUTIONS IN PLACE. CALL DAVIS AND PERSONAL ITEMS IN REACH. WILL CONTINUE TO MONITOR.
[2019-05-07 09:13] VITALS: BP 99/54
--- NOTE | 2019-05-07 09:23 | NUR ---
PATIENT REMAINS UNABLE TO VOID. BLADDER SCAN PERFORMED. 388ML NOTED IN BLADDER. WILL PLACE GIRON PER ORDER.
--- NOTE | 2019-05-07 10:03 | NUR ---
ATTEMPTED TO PLACE GIRON. RESISTANCE MET. WILL ATTEMPT AGAIN WITH KUDAY CATHETER. PER DR ABREU, IF GIRON PLACED, PLACE ORDER FOR SEPTRA PO BID WHILE PATIENT HAS GIRON.
--- NOTE | 2019-05-07 10:30 | NUR ---
PATIENT ABLE TO VOID 200ML. NOT PLACING GIRON. WILL CONTINUE TO MONITOR.
--- NOTE | 2019-05-07 11:30 | NUR ---
SPOKE WITH DR ABREU WHO STATES DC MALLY AND DAVID D/T PATIENT NOT GETTING GIRON. WILL DC.
[2019-05-07 12:24] VITALS: BP 97/42
--- NOTE | 2019-05-07 14:20 | NUR ---
RESTING IN BED. DENIES NEEDS. WILL CONTINUE TO MONITOR.
--- NOTE | 2019-05-07 15:27 | NUR ---
Rehab Note- Acute Inpatient REhab prescreen order received. THe patient is post op day #1, has a pending PT Eval- will follow at this time to see how well the patient is physically. THank you for this referral! Martha Black RN Clinical Liaison, [facility] Rehab
--- NOTE | 2019-05-07 16:46 | NUR ---
RESTING IN BED. DENIES NEEDS. WILL CONTINUE TO MONITOR.
[2019-05-07 17:07] VITALS: BP 107/46
--- NOTE | 2019-05-07 18:46 | NUR ---
RESTING IN BED. DENIES NEEDS. BED LOW. FALL PRECAUTIONS IN PLACE. CALL DAVIS AND PERSONAL ITEMS IN REACH.
[2019-05-07 20:00] VITALS: BP 99/50
--- NOTE | 2019-05-07 23:59 | NUR ---
PT RESTING IN BED. EYES CLOSED. NO SIGNS OF DISTRESS. BREATHING EVEN AND UNLABORED. IV SITE LT HAND DRESSING CLEAN DRY AND INTACT. NO SIGNS OF INFECTION. LUNG SOUNDS CLEAR. BOWEL SOUNDS ACTIVE. SKIN CLEAN DRY AND INTACT. WOUND VAC PERINEAL AREA. CLEAN DRY AND INTACT. RT HIP DRESSING CLEAN DRY AND INTACT. SCDS ON. WILL CONTINUE PLAN OF CARE. CALL LIGHT IN REACH. BED LOWERED AND LOCKED. BED RAILX2.
[2019-05-08 06:26] VITALS: BP 95/46
[2019-05-08 07:26] LABS: BASOPHILS 0.2 % (0-2); EOSINOPHILS 0.7 % (0-7); HEMATOCRIT 23.3 % (42.0-54.0); HEMOGLOBIN 7.7 g/dL (13.5-17.5); IMMATURE GRANULOCYTES 0.2 % (0-5); LYMPHOCYTES 28.7 % (15-50); MCH 31.6 pg (26.0-34.0); MCV 95.5 fL (80.0-100.0); MEAN PLATELET VOLUME 9.8 fL (7.4-10.4); MONOCYTES 11.7 % (2-11); NEUTROPHILS 58.5 % (40-80); RBC 2.44 10x6/uL (4.20-6.10); RDW 13.2 % (11.5-14.5)
[2019-05-08 07:30] LABS: PLATELET COUNT 151 10x3/uL (130-400); WBC 5.8 10x3/uL (4.8-10.8)
--- NOTE | 2019-05-08 07:43 | NUR ---
ALERT AND ORIENTED. LUNGS CLEAR BILATERALLY IN ALL LOGAN. HEART SOUNDS S1 AND S2 HEARD IN ALL LOGAN. BOWEL SOUNDS ACTIVE X 4. PREVINA WOUND VAC TO INCISION ON RIGHT HIP. DRSG INTACT. IV TO LEFT HAND PATENT WITHOUT REDNESS. DENIES NEEDS. BED LOW. CALL DAVIS AND PERSONAL ITEMS IN REACH. WILL CONTINUE TO MONITOR.
[2019-05-08 08:44] VITALS: BP 100/67
--- NOTE | 2019-05-08 10:50 | NUR ---
BLOOD TRANSFUSION UNIT 1 INITIATED. VITALS STABLE. WILL CONTINUE TO MONITOR.
--- NOTE | 2019-05-08 12:42 | MORECARE ---
CASE MANAGEMENT DISCHARGE SUMMARY PATIENT: RAMIRO GORDON UNIT: [id number] ADM DATE: 05/06/19 AGE: 54 : 63 SEX: M ROOM/BED: D.2237 AUTHOR: EVONNE SANTA PHYSICIAN: REFERRING PHYSICIAN: JING ABREU MD DATE OF SERVICE: 05/08/19 Discharge Plan Patient Name: RAMIRO GORDON [facility] [facility] 1965 Planned Disposition: Inpatient Rehab Anticipated Discharge Date: 05/10/19 Discharge Date: Expected LOS: 4 Initial Reviewer: [email or web address] Initial Review Date: 05/08/2019 Generated: 05/08/19 1:42 pm DCPIA - Discharge Planning Initial Assessment Updated by [id number]: Joaquina Ford on 05/08/19 12:40 pm * Is the patient Alert and Oriented? Yes * PCP Dr. Fleming * Pharmacy [facility] on [address] * Preadmission Environment Home with Family * ADLs Independent * Equipment None * List name and contact numbers for known caregivers / representatives who currently or will assist patient after discharge: Thalia Flores [facility] [phone] * Verbal permission to speak to the caregivers and representatives has been obtained from the patient. Yes * Community resources currently utilized None * Additional services required to return to the preadmission environment? Yes * Can the patient safely return to the preadmission environment? No * Has this patient been hospitalized within the prior 30 days at any hospital? No Patient Name: RAMIRO GORDON Page 29652 at 1242 All edits/amendments must be made on the electronic document DICTATION DATE: 05/08/19 1242 COUNTER TOP ASSEMBLER: VIKTORIYA 05/08/19 1242 RPT#: [id number] DC DATE: STATUS: ADM IN [facility] [address] [place] [address] END OF REPORT
--- NOTE | 2019-05-08 12:58 | MORECARE ---
CASE MANAGEMENT DISCHARGE SUMMARY PATIENT: RAMIRO GORDON UNIT: [id number] ADM DATE: 05/06/19 AGE: 54 : 63 SEX: M ROOM/BED: D.2237 AUTHOR: EVONNE SANTA PHYSICIAN: REFERRING PHYSICIAN: JING ABREU MD DATE OF SERVICE: 05/08/19 Discharge Plan Patient Name: RAMIRO GORDON Facility: [facility]:[place] : 1965 Planned Disposition: Inpatient Rehab Anticipated Discharge Date: 05/10/19 Discharge Date: Expected LOS: 4 Initial Reviewer: [email or web address] Initial Review Date: 05/08/2019 Generated: 05/08/19 1:57 pm Comments DCP- Discharge Planning Updated by [email or web address]: Joaquina Ford on 05/08/19 11:[address] Patient Name: RAMIRO GORDON Admission Status: Elective Accout number: [id number] Admission Date: 05-06-2019 : 1965 Admission Diagnosis: Attending: JING ABREU Current LOS: 2 Anticipated DC Date: 05-10-2019 Planned Disposition: Inpatient Rehab Primary Insurance: MEDICARE A & B Discharge Planning Comments: CM met with patient to discuss discharge planning/needs. His mother walked into the room during assessment and verbal permission given to discuss discharge planning with mother present. He was living with his brother on [address] prior to coming to the hospital. His mother states this is an unsafe environment and he cannot return there. He would like to go to inpatient rehab here at [facility] prior to discharging from the hospital. His mother is requesting a list of assisted living environments. I informed that assisted living is private pay. She would like a list. I provided the list and also gave her phone numbers for [employer], and [employer]. I also gave them a list of private duty agencies that could help with filling out an application to see if he qualifies for help for private care. His mom states she is unable to care for him. I explained that with rehab, the goal would be for him to be able to care for himself on discharge. CM will continue to follow and assist with discharge planning/needs. Cutter Helper: Joaquina Ford DCPIA - Discharge Planning Initial Assessment Updated by [email or web address]: Joaquina Ford on 05/08/19 12:40 pm * Is the patient Alert and Oriented? Yes * PCP Dr. Fleming * Pharmacy [facility] on [address] * Preadmission Environment Home with Family * ADLs Independent * Equipment None * List name and contact numbers for known caregivers / representatives who currently or will assist patient after discharge: Thalia Flores - [facility] - [phone] * Verbal permission to speak to the caregivers and representatives has been obtained from the patient. Yes * Community resources currently utilized None * Additional services required to return to the preadmission environment? Yes * Can the patient safely return to the preadmission environment? No * Has this patient been hospitalized within the prior 30 days at any hospital? No Last DP export: 05/08/19 11:42 a Patient Name: RAMIRO GORDON Page 21487 at 1258 All edits/amendments must be made on the electronic document DICTATION DATE: 05/08/19 1257 HORSE TRADER: VIKTORIYA 05/08/19 1257 RPT#: [id number] DC DATE: STATUS: ADM IN [facility] [address] [place] [address] END OF REPORT
--- NOTE | 2019-05-08 13:10 | NUR ---
SECOND UNIT BLOOD INITIATED. VITALS STABLE. WILL CONTINUE TO MONITOR.
--- NOTE | 2019-05-08 13:23 | NUR ---
BLOOD CONTINUES INFUSING. VITALS REMAIN STABLE.
--- NOTE | 2019-05-08 15:54 | NUR ---
BLOOD TRANFUSION UNIT 2 COMPLETE. VITALS STABLE. PRN NORCO GIVEN FOR PAIN PER REQUEST.
--- NOTE | 2019-05-08 17:40 | NUR ---
PATIENT SLEEPING. WILL CONTINUE TO MONITOR.
[2019-05-08 20:00] VITALS: BP 119/75
[2019-05-09] VITALS: BP 120/67
[2019-05-09 03:57] VITALS: BP 111/59
[2019-05-09 05:31] LABS: BASOPHILS 0.2 % (0-2); EOSINOPHILS 2.9 % (0-7); HEMATOCRIT 37.6 % (42.0-54.0); HEMOGLOBIN 12.3 g/dL (13.5-17.5); IMMATURE GRANULOCYTES 0.2 % (0-5); LYMPHOCYTES 25.4 % (15-50); MCH 29.5 pg (26.0-34.0); MCHC 32.7 g/dL (31.0-37.0); MCV 90.2 fL (80.0-100.0); MEAN PLATELET VOLUME 9.8 fL (7.4-10.4); MONOCYTES 9.8 % (2-11); NEUTROPHILS 61.5 % (40-80); PLATELET COUNT 180 10x3/uL (130-400); RBC 4.17 10x6/uL (4.20-6.10); WBC 4.8 10x3/uL (4.8-10.8)
--- NOTE | 2019-05-09 08:12 | NUR ---
AWAKE AND ALERT. ORIENTED X3. NO C/O AT THIS TIME. REPORTS PAIN OK UNLESS HE MOVES THE LEG. LUNGS ARE CLEAR BILATERALLY, NO COUGH NOTED. SKIN IS INTACT WITHOUT REDNESS EXCEPT INCISION TO RIGHT HIP WHICH HAS A PROVEENA WOUND VAC IN PLACE WITH SCANT SEROUS SANGUINESS DRAINAGE NOTED. IV TO LEFT HAND IS PATENT WTIHOUT REDNESS AT INSERTION SITE. SCD'S IN PLACE. VOIDEDE 300 CC CLEAR YELLOW URINE IN URINAL. DENIES NEEDS.
[2019-05-09 08:18] VITALS: BP 110/58
--- NOTE | 2019-05-09 10:05 | NUR ---
REQUESTED AND GIVEN 2MG MORPHINE SLOW IVP FOR C/O RIGHT HIP PAIN LEVEL 10. WILL MONITOR.
--- NOTE | 2019-05-09 12:00 | NUR ---
UP TO SHOWER WITH SET UP ASSISTANCE. PUT SELF TO BED. WAS UPSET THAT HE HAD TO DO SO. REPOSITIONED IN BED FOR COMFORT. SCD'S PLACED. NO FURTHER NEEDS NOTED.
[2019-05-09 12:37] VITALS: BP 105/52
--- NOTE | 2019-05-09 14:00 | NUR ---
RESTING QUIETLY IN BED WITH EYES CLOSED. DENIES NEEDS.
--- NOTE | 2019-05-09 16:40 | NUR ---
REQUESTED AND GIVEN ONE HYDROCODONE PO FOR C/O RIGHT HIP PAIN LEVEL 10. WILL MONITOR.
[2019-05-09 17:00] VITALS: BP 117/50
--- NOTE | 2019-05-09 17:41 | NUR ---
SITTING UP IN BED EATING SUPPER. NO C/O AT THIS TIME. DENIES NEEDS.
[2019-05-09 20:01] VITALS: BP 137/62
[2019-05-10] VITALS: BP 100/51
[2019-05-10 04:00] VITALS: BP 100/57
--- NOTE | 2019-05-10 08:02 | NUR ---
AWAKE AND ALERT. ORIENTED X3. C/O RIGHT HIP PAIN LEVEL 8. GIVEN ONE HYDROCODONE PO FOR SAME. LUNGS ARE CLEAR BILATERALLY, NO COUGH NOTED. SKIN IS INTACT WITHOUT REDNESS EXCEPT INCISION TO RIGHT HIP WHICH HAS A PROVEENA IN PLACE WITH SCANT SEROUS SANGUINESS NOTED. IV TO LEFT HAND IS PATENT WITHOUT REDNESS AT INSERTION SITE. DENIES OTHER NEEDS. SCD'S IN PLACE.
[2019-05-10 08:11] VITALS: BP 154/74
--- NOTE | 2019-05-10 11:00 | NUR ---
UP TO CHIAR AT BEDSIDE WITH PT. DENIES NEEDS.
--- NOTE | 2019-05-10 13:02 | NUR ---
REQUESTED AND GIVEN ONE HYDROCODONE PO FOR C/O RIGHT HIP PAIN LEVEL 8. WILL MONITOR.
[2019-05-10 14:11] VITALS: BP 119/51
--- NOTE | 2019-05-10 18:00 | NUR ---
ATE MOST OF SUPPER. REQUESTED AND GIVEN ONE HYDROCODONE PO FOR C/O RIGHT HIP PAIN LEVEL 8. WILL MONITOR. NO CHANGES NOTED. DENIES NEEDS.
[2019-05-10 18:32] VITALS: BP 122/54
[2019-05-10 20:00] VITALS: BP 117/63
[2019-05-11] VITALS: BP 107/68
[2019-05-11 04:00] VITALS: BP 107/53
--- NOTE | 2019-05-11 07:15 | NUR ---
REC'D IN BED AWAKE AND ALERT. RESP EVEN AND UNLABORED WITH NO DISTRESS NOTED. CAN EXPRESS NEEDS AND WANTS. NO C/O NOTEO OR VOICED. ASSESSMENT COMPLETED. C/L IN REACH AT BEDSIDE.
[2019-05-11 08:43] VITALS: BP 115/68
--- NOTE | 2019-05-11 08:51 | NUR ---
C/O RIGHT HIP PAIN RATING 10/10 ON PAIN SCALE WAS MEDICATED WITH NORCO PER ORDERS.
--- NOTE | 2019-05-11 11:22 | NUR ---
I have reviewed this patient and I concur with the Shift Assessment completed by the Licensed Practical Nurse today this shift.
[2019-05-11 11:53] VITALS: BP 118/69
[2019-05-11] MEDS ORDERED: ASPIRIN325 MG PO (13:36)
[2019-05-11] MEDS ORDERED: HYDROCODON-ACE1 EA10 PO (13:36)
--- NOTE | 2019-05-11 15:43 | NUR ---
C/O PX RATING 9/10 WAS MEDICATED WITH NORCO PER ORDERS. C/L IN REACH AST BEDSIDE.
--- NOTE | 2019-05-11 16:08 | MORECARE ---
CASE MANAGEMENT DISCHARGE SUMMARY PATIENT: RAMIRO GORDON UNIT: [id number] ADM DATE: 05/06/19 AGE: 54 : 63 SEX: M ROOM/BED: D.2237 AUTHOR: EVONNE SANTA PHYSICIAN: REFERRING PHYSICIAN: JING ABREU MD DATE OF SERVICE: 05/11/19 Discharge Plan Patient Name: RAMIRO GORDON Facility: [facility]:[place] : 1965 Planned Disposition: Inpatient Rehab Anticipated Discharge Date: 05/10/19 Discharge Date: Expected LOS: 4 Initial Reviewer: [id number] Initial Review Date: 05/08/2019 Generated: 05/11/19 5:08 pm Comments DCP- Discharge Planning Updated by [email or web address]: Joaquina Ford on 05/11/19 3:[address] Patient Name: RAMIRO GORDON Encounter No: [id number] : 1965 Primary Insurance: MEDICARE A & B Anticipated DC Date: 05-10-2019 Planned Disposition: Inpatient Rehab External Planned Provider: : DCP follow-up note: Patient and family in agreement with discharge plan. No changes to plan. Case management will follow and assist as needed. Joaquina Ford DCP- Discharge Planning Updated by [email or web address]: Joaquina Ford on 05/08/19 11:[address] Patient Name: RAMIRO GORDON Admission Status: Elective Accout number: [id number] Admission Date: 05-06-2019 : 1965 Admission Diagnosis: Attending: JING ABREU Current LOS: 2 Anticipated DC Date: 05-10-2019 Planned Disposition: Inpatient Rehab Primary Insurance: MEDICARE A & B Discharge Planning Comments: CM met with patient to discuss discharge planning/needs. His mother walked into the room during assessment and verbal permission given to discuss discharge planning with mother present. He was living with his brother on [address] prior to coming to the hospital. His mother states this is an unsafe environment and he cannot return there. He would like to go to inpatient rehab here at [facility] prior to discharging from the hospital. His mother is requesting a list of assisted living environments. I informed that assisted living is private pay. She would like a list. I provided the list and also gave her phone numbers for [facility], [place], and [facility]. I also gave them a list of private duty agencies that could help with filling out an application to see if he qualifies for help for private care. His mom states she is unable to care for him. I explained that with rehab, the goal would be for him to be able to care for himself on discharge. CM will continue to follow and assist with discharge planning/needs. Home Restoration Service Cleaner: Joaquina Ford DCPIA - Discharge Planning Initial Assessment Updated by [email or web address]: Joaquina Ford on 05/08/19 12:40 pm * Is the patient Alert and Oriented? Yes * PCP Dr. Fleming * Pharmacy [facility] on [address] * Preadmission Environment Home with Family * ADLs Independent * Equipment None * List name and contact numbers for known caregivers / representatives who currently or will assist patient after discharge: Thalia Flores [facility] - [phone] * Verbal permission to speak to the caregivers and representatives has been obtained from the patient. Yes * Community resources currently utilized None * Additional services required to return to the preadmission environment? Yes * Can the patient safely return to the preadmission environment? No * Has this patient been hospitalized within the prior 30 days at any hospital? No Coverage Notice Reviewer: [id number] Breanne Ford Notice Issued Date-Time: 05/08/2019 12:58 Notice Type: IM Discharge Notice Notice Delivered To: Patient Relationship to Patient: Self Herbicide Service Sales Representative Name: Delivery Method: HAND - Hand Delivered Argenis Days: Prior Verbal Notification: Recipient Understood Notice: Yes Recipient Signature: Yes Med Rec Note Co-signed by Attending: Coverage Notice Comment: IMM explained, signed, given, copy placed in MR Reviewer: [email or web address] Breanne Ford Notice Issued Date-Time: 05/11/2019 9:09 Notice Type: IM Discharge Notice Notice Delivered To: Patient Relationship to Patient: Self Herbicide Service Sales Representative Name: Delivery Method: HAND - Hand Delivered Argenis Days: Prior Verbal Notification: Recipient Understood Notice: Yes Recipient Signature: Yes Med Rec Note Co-signed by Attending: Coverage Notice Comment: IMM explained, signed, given, copy placed in MR Last DP export: 05/08/19 11:58 a Patient Name: RAMIRO GORDON Page [id number] at 1608 All edits/amendments must be made on the electronic document DICTATION DATE: 05/11/191607 ADULT BASIC EDUCATION MANAGER: VIKTORIYA 05/11/191607 RPT#: [id number] DC DATE: STATUS: ADM IN [facility] [address] [place] [address] END OF REPORT
[2019-05-11 16:55] VITALS: BP 115/62
--- NOTE | 2019-05-11 17:10 | NUR ---
DC DOWN TO IN HOUSE REHAB AT THIS TIME VOICE UNDERSTANDING OF DC INSTRUCTION. IV DC WITH TIP INTACT. TRISTON HOSE IN USE AT THIS TIME. WAS IN STABLE CONDITION UPON DEPARTURE.
--- NOTE | 2019-05-12 07:17 | MORECARE ---
CASE MANAGEMENT DISCHARGE SUMMARY PATIENT: RAMIRO GORDON UNIT: [id number] ADM DATE: 05/06/19 AGE: 54 : 63 SEX: M ROOM/BED: D.2237 AUTHOR: EVONNE SANTA PHYSICIAN: REFERRING PHYSICIAN: JING ABREU MD DATE OF SERVICE: 05/12/19 Discharge Plan Patient Name: RAMIRO GORDON Facility: [facility]:[place] : 1965 Planned Disposition: Inpatient Rehab Anticipated Discharge Date: 05/10/19 Discharge Date: 05/11/2019 Expected LOS: 4 Initial Reviewer: [email or web address] Initial Review Date: 05/08/2019 Generated: 05/12/19 8:17 am Comments DCP- Discharge Planning Updated by [email or web address]: Joaquina Ford on 05/11/19 3:[address] Patient Name: RAMIRO GORDON Encounter No: [id number] : 1965 Primary Insurance: MEDICARE A & B Anticipated DC Date: 05-10-2019 Planned Disposition: Inpatient Rehab External Planned Provider: : DCP follow-up note: Patient and family in agreement with discharge plan. No changes to plan. Case management will follow and assist as needed. Joaquina Ford DCP- Discharge Planning Updated by [email or web address]: Joaquina Ford on 05/08/19 11:[address] Patient Name: RAMIRO GORDON Admission Status: Elective Accout number: [id number] Admission Date: 05-06-2019 : 1965 Admission Diagnosis: Attending: JING ABREU Current LOS: 2 Anticipated DC Date: 05-10-2019 Planned Disposition: Inpatient Rehab Primary Insurance: MEDICARE A & B Discharge Planning Comments: CM met with patient to discuss discharge planning/needs. His mother walked into the room during assessment and verbal permission given to discuss discharge planning with mother present. He was living with his brother on [address] prior to coming to the hospital. His mother states this is an unsafe environment and he cannot return there. He would like to go to inpatient rehab here at [facility] prior to discharging from the hospital. His mother is requesting a list of assisted living environments. I informed that assisted living is private pay. She would like a list. I provided the list and also gave her phone numbers for [employer], [employer], and [employer]. I also gave them a list of private duty agencies that could help with filling out an application to see if he qualifies for help for private care. His mom states she is unable to care for him. I explained that with rehab, the goal would be for him to be able to care for himself on discharge. CM will continue to follow and assist with discharge planning/needs. Telephone Betting Clerk: Joaquina Ford DCPIA - Discharge Planning Initial Assessment Updated by [email or web address]: Joaquina Ford on 05/08/19 12:40 pm * Is the patient Alert and Oriented? Yes * PCP Dr. Fleming * Pharmacy [facility] [address] * Preadmission Environment Home with Family * ADLs Independent * Equipment None * List name and contact numbers for known caregivers / representatives who currently or will assist patient after discharge: Thalia Flores [facility] - [phone] * Verbal permission to speak to the caregivers and representatives has been obtained from the patient. Yes * Community resources currently utilized None * Additional services required to return to the preadmission environment? Yes * Can the patient safely return to the preadmission environment? No * Has this patient been hospitalized within the prior 30 days at any hospital? No Coverage Notice Reviewer: [id number] Breanne Ford Notice Issued Date-Time: 05/08/2019 12:58 Notice Type: IM Discharge Notice Notice Delivered To: Patient Relationship to Patient: Self Agronomy Technician Name: Delivery Method: HAND - Hand Delivered Argenis Days: Prior Verbal Notification: Recipient Understood Notice: Yes Recipient Signature: Yes Med Rec Note Co-signed by Attending: Coverage Notice Comment: IMM explained, signed, given, copy placed in MR Reviewer: [id number] Breanne Ford Notice Issued Date-Time: 05/11/2019 9:09 Notice Type: IM Discharge Notice Notice Delivered To: Patient Relationship to Patient: Self Agronomy Technician Name: Delivery Method: HAND - Hand Delivered Argenis Days: Prior Verbal Notification: Recipient Understood Notice: Yes Recipient Signature: Yes Med Rec Note Co-signed by Attending: Coverage Notice Comment: IMM explained, signed, given, copy placed in MR Last DP export: 05/11/19 3:08 p Patient Name: RAMIRO GORDON Page 19713 at 0717 All edits/amendments must be made on the electronic document DICTATION DATE: 05/12/19716 APPRENTICE MACHINIST OUTSIDE: VIKTORIYA 05/12/19716 RPT#: [id number] DC DATE:05/11/19 STATUS: DIS IN [facility] [address] [place] [address] END OF REPORT
[2019-05-19] MEDS ORDERED: HYDROCODONE-A1 UDTA2 PO (13:58)
== END 2019-05-11 17:12 | DRG 470 ==
LOC: D.SDCHOLD 05-05 09:30 → D.MS 05-06 09:00 → D.SDCHOLD 05-06 09:00 → D.MS 05-06 13:42
PROVIDERS: ADMIT Orthopaedic Surgery; ATTEND Orthopaedic Surgery
PROC: 0SR90J9 Replacement of Right Hip Joint with Synthetic Substitute, Cemented, Open Approach (ICD-10-PCS; principal; 2019-05-06 08:45)
DX: M16.11 Unilateral primary osteoarthritis, right hip (principal); D62 Acute posthemorrhagic anemia; M24.051 Loose body in right hip

== ENCOUNTER → 2019-04-27 22:39 | Outpatient (CLI) | payer MEDICARE | END | disposition home or self-care (01) | LOC: D.LABREF 22:39 | PROVIDERS: ATTEND Orthopaedic Surgery | DX: M54.2 Cervicalgia (principal) ==

== ENCOUNTER 2019-05-11 16:38 | Inpatient (IN) | payer MEDICARE ==
[~2019-05-11] VITALS: Ht 175.3 cm; Wt 72.6 kg
[~2019-05-11 16:38] MED LIST changes: +ASPIRIN325 MG PO; +HYDROCODON-ACE1 EA10 PO
[2019-05-11 17:40] VITALS: BP 145/80; BMI 23.6
--- NOTE | 2019-05-11 19:37 | NUR ---
PT IS RESTING IN BED WITH EYES OPEN. ALERT AND ORIENTED X 3. DENIES ACUTE PAIN OR DISCOMFORT AT THIS TIME.
[2019-05-11 20:44] VITALS: BP 108/60
--- NOTE | 2019-05-11 22:08 | NUR ---
PT RESTING IN BED WITH EYES CLOSED. NO ACUTE DISTRESS NOTED.
--- NOTE | 2019-05-11 23:57 | NUR ---
PT VOICED COMPLAINT OF RIGHT HIP PAIN LEVEL OF 8. MEDICATED PER MAR.
--- NOTE | 2019-05-12 01:13 | NUR ---
I have reviewed this patient and I concur with the Shift Assessment completed by the Licensed Practical Nurse today this shift.
--- NOTE | 2019-05-12 04:57 | NUR ---
RESTING IN BED WITH EYES CLOSED.
[2019-05-12 07:01] LABS: BASOPHILS 0.3 % (0-2); HEMATOCRIT 28.6 % (42.0-54.0); HEMOGLOBIN 9.4 g/dL (13.5-17.5); IMMATURE GRANULOCYTES 1.5 % (0-5); LYMPHOCYTES 18.9 % (15-50); MCH 30.8 pg (26.0-34.0); MCHC 32.9 g/dL (31.0-37.0); MCV 93.8 fL (80.0-100.0); MONOCYTES 15.5 % (2-11); NEUTROPHILS 57.8 % (40-80); RBC 3.05 10x6/uL (4.20-6.10); RDW 13.6 % (11.5-14.5); WBC 6.2 10x3/uL (4.8-10.8)
[2019-05-12 07:02] LABS: PLATELET COUNT 261 10x3/uL (130-400)
[2019-05-12 07:14] LABS: CALC OSMOLALITY 274 mosm/kg (275-300); CALCIUM 8.1 mg/dL (8.5-10.1); CARBON DIOXIDE 27.4 mmol/L (21.0-32.0); CHLORIDE - SERUM 104 mmol/L (98-107); CREATININE - SERUM 0.5 mg/dL (0.6-1.3); GLUCOSE 104 mg/dL (74-106); POTASSIUM - SERUM 4.5 mmol/L (3.5-5.1); SODIUM 138 mmol/L (136-145); UREA NITROGEN 10 mg/dL (7-18); eGFR NON AFRICAN AMERICAN > 90 mL/min (90-120)
[2019-05-12 08:00] VITALS: BP 102/64
--- NOTE | 2019-05-12 08:00 | NUR ---
PT EATING BREAKFAST, DENIES NEEDS. WCTM.
[2019-05-12 13:04] VITALS: Ht 175.3 cm; Wt 72.6 kg
--- NOTE | 2019-05-12 16:10 | NUR ---
PATIENT ADMITTED TO REHAB FROM ACUTE FLOOR. PCP IS DR. MARIA. DISCHARGE PLANS ARE UNKNOWN AT THIS TIME. WILL CONTINUE TO FOLLOW WITH PATIENT AND WILL ASSIT WITH NEEDS.
--- NOTE | 2019-05-12 17:54 | NUR ---
PT EATING DINNER, DENIES NEEDS. WCTM.
--- NOTE | 2019-05-12 19:37 | NUR ---
GREETED PATIENT AND INTRODUCED MYSELF HIS NURSE. PATIENT IS LAYING IN BED WATCHING TV. STATES THAT PAIN LEVEL IS 9/10 IN RIGHT HIP. RESPIRATIONS EVEN. NO S/S OF DISTRESS. CALL LIGHT IN REACH.
[2019-05-12 22:15] VITALS: BP 119/63
--- NOTE | 2019-05-13 05:47 | NUR ---
PT. RESTING QUIETLY WITH EYES CLOSED LAYING ON LEFT SIDE. RESPIRATIONS EVEN. NO S/S OF DISTRESS. CALL LIGHT IN REACH.
[2019-05-13 07:31] LABS: BASOPHILS 0.3 % (0-2); EOSINOPHILS 7.2 % (0-7); HEMOGLOBIN 8.8 g/dL (13.5-17.5); IMMATURE GRANULOCYTES 1.3 % (0-5); LYMPHOCYTES 23.5 % (15-50); MCH 30.3 pg (26.0-34.0); MCHC 32.6 g/dL (31.0-37.0); MCV 93.1 fL (80.0-100.0); MONOCYTES 14.7 % (2-11); PLATELET COUNT 300 10x3/uL (130-400); RDW 13.4 % (11.5-14.5)
[2019-05-13 07:58] LABS: CALC OSMOLALITY 276 mosm/kg (275-300); CALCIUM 7.9 mg/dL (8.5-10.1); CARBON DIOXIDE 25.8 mmol/L (21.0-32.0); CHLORIDE - SERUM 104 mmol/L (98-107); CREATININE - SERUM 0.5 mg/dL (0.6-1.3); GLUCOSE 104 mg/dL (74-106); POTASSIUM - SERUM 4.2 mmol/L (3.5-5.1); SODIUM 139 mmol/L (136-145); UREA NITROGEN 10 mg/dL (7-18); eGFR NON AFRICAN AMERICAN > 90 mL/min (90-120)
[2019-05-13 08:04] VITALS: BP 114/71
--- NOTE | 2019-05-13 08:29 | NUR ---
PT AM MEDS ADMINSITERED. PT SITTING UP EATING BREAKFAST IN BED, DENIES NEEDS. WCTM.
--- NOTE | 2019-05-13 17:01 | NUR ---
WOUND VAC REMOVED. TWO BLISTERS NOTED FROM TAPE. NOTED BLOOD TINGED DRAINAGE FROM THREE AREAS OF INCISION. SHOWER GIVEN BY RECREATION WORKER. BORDER GAUZE DRESSING APPLIED.
--- NOTE | 2019-05-13 19:30 | NUR ---
GREETED PATIENT AND INTRODUCED MYSELF HIS NURSE. PATIENT IS SITTING IN WHEELCHAIR GETTING READY TO LEAVE UNIT FOR A WHILE. RESPIRAITONS EVEN. NO S/S OF DISTRESS.
[2019-05-13 22:00] VITALS: BP 116/62
[2019-05-14 08:00] VITALS: BP 109/58
--- NOTE | 2019-05-14 08:00 | NUR ---
SHIFT ASSMT COMPLETED.
[2019-05-14 10:00] VITALS: BP 107/61
--- NOTE | 2019-05-14 10:14 | NUR ---
NUTRITION F/U CHART REVIEWED, PT VISIT. TOLERATING REG DIET WITH 100% INTAKE RECENT MEALS. WILL CONTINUE TO HONOR FOOD PREFERENCES, MONITOR PO INTAKE. RD FOLLOWING
--- NOTE | 2019-05-14 12:00 | NUR ---
SITTING UP EATING LUNCH.
--- NOTE | 2019-05-14 13:43 | RHP ---
PATIENT: RAMIRO GORDON MEDICAL RECORD: [id number] ACCOUNT: [id number] LOCATION:[facility]1118 : [birth year] ADMISSION DATE: 05/11/19 REHABILITATION HISTORY AND PHYSICAL EXAMINATION POST ADMISSION PHYSICIAN EXAMINATION POST ADMISSION PHYSICAL EXAMINATION AND HISTORY AND PHYSICAL DATE OF ADMISSION: 05/11/2019 ADMITTING DIAGNOSIS: Right total hip replacement. HISTORY OF PRESENT ILLNESS: The patient is admitted for a right total hip replacement secondary to severe arthritis and loose bodies. The patient is a 54-year-old gentleman, who was admitted to the [facility] on May 06 for an elective right total hip replacement due to severe osteoarthritis. He has had some postop blood loss anemia with an H&H of 13 and 38. It was on April 29 down to 7 and 23. On May 08, he has received 2 units of packed red blood cells and blood. His H&H are up. He does have some acute pain. He is requiring some increased amount of pain medications. He has got weakness, deconditioning, debility, impaired mobility, gait disturbance. He is high fall risk and has self-care deficits. These are all barriers to his discharge. He was moderately independent with single point cane prior to coming in. He is currently mod assist for his mobility and set up for mod assist with ADLs. He has been living with his brother, but plans to move into an assisted living type apartment and his mother has a list of possibilities for him to go to upon discharge. He plans to discharge with home health set up and get back to his prior level of functioning if possible. Comorbidities in this patient include hip arthritis, anemia, history of total hip arthroplasty, acute pain, debility, and impaired gait. PAST MEDICAL HISTORY: Significant for weakness. He is a former tobacco use patient. 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 He has had right hip pain and neck pain. PAST SURGICAL HISTORY: Includes shoulder surgery and I&D of his hand. He has had a left inguinal hernia repair. He has had testicle removed. ALLERGIES: No known drug allergies. CURRENT MEDICATIONS: Include aspirin 325 b.i.d. and he is on hydrocodone as needed. HABITS: Denies any current illicit drug use, but used tobacco. FAMILY HISTORY: Noncontributory. SOCIAL HISTORY: The patient hopes to return back to some type of assisted living when he leaves here. REVIEW OF SYSTEMS: GENERAL: Does complain of some weakness and fatigue. HEENT: Denies cold, cough, or congestion. CARDIOVASCULAR: Denies chest pain. HISTORY AND PHYSICAL [id number] RAMIRO GORDON PHYSICAL EXAMINATION: VITAL SIGNS: Stable, afebrile. GENERAL: Well-developed gentleman, in no acute distress upon exam. HEENT: Normocephalic and atraumatic. Mucosa moist. NECK: Supple. No lymphadenopathy. LUNGS: Clear at this time. No wheeze, rhonchi, or rales. HEART: Regular rate and rhythm. No murmurs, rubs or gallops. ABDOMEN: Soft, benign, and nondistended. Positive bowel sounds times 4. EXTREMITIES: Has normal postop swelling in the hip region. NEUROLOGIC: Mainly intact. LABORATORY DATA: His white count is 6.2, H&H of 9.4 and 28.6, platelet count is 261. His sodium is 138, potassium 4.5, BUN and creatinine of 10 and 0.5, and blood sugar was noted to be 104. 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 The patient has potential to make improvement. We will institute the following multidisciplinary therapies including, but not limited to, physical, occupational, respiratory, speech, nutritional services, prosthetics, and orthotics. Given his complex medical condition and risks for more complications, rehabilitation services cannot be provided at a lower level of care such as a skilled nurse facility. PLAN: 1. Admit to [facility] for an inpatient therapy to include the following disciplines; A. Physical therapy to improve gait, all transfer skills, and bed mobility to modified independent level. B. Occupational therapy to assist with gait and daily living. C. Case management to assist with discharge planning and placement options. D. Nutrition to assist with nutritional needs. E. Rehabilitation nursing to assist in monitoring the patient's underlying medical conditions and to assist with any type of bowel or bladder management. 2. The patient's current medications and medical care will be continued. 3. The patient will be placed on standard fall precautions. 4. The patient's estimated length of stay is approximately 7-10 days. 5. We will discuss this patient during care team staff meeting this week. TRANSINT:[id number] Voice Confirmation ID: [id number] DOCUMENT ID: [id number] NICA notes whether there has been none or any medical/functional change since admission: - No change since preadmission screen. NICA attests patient continues to be appropriate for IRF: - Continues to be appropriate. HISTORY AND PHYSICAL [id number] RAMIRO GORDON,BANDAR SANDHU MD at 1343 CC: [id number] DICTATION DATE: 05/12/19838 OIL RECOVERY UNIT OPERATOR: 05/12/19 0903 ADM IN [place] [id number] [place] [address]
[2019-05-14 21:16] VITALS: BP 123/62
--- NOTE | 2019-05-15 02:33 | NUR ---
PATIENT EYES CLOSED. RESPIRATIONS 18 & EVEN. PAIN MEDICATION EFFECTIVE. URINAL & CALL LIGHT WITHIN REACH. BED LOW. WILL CONTINUE TO MONITOR.
[2019-05-15 06:04] LABS: BASOPHILS 0.4 % (0-2); EOSINOPHILS 6.6 % (0-7); HEMATOCRIT 27.4 % (42.0-54.0); HEMOGLOBIN 8.9 g/dL (13.5-17.5); LYMPHOCYTES 24.3 % (15-50); MCH 30.7 pg (26.0-34.0); MCHC 32.5 g/dL (31.0-37.0); MCV 94.5 fL (80.0-100.0); MEAN PLATELET VOLUME 8.4 fL (7.4-10.4); MONOCYTES 11.1 % (2-11); NEUTROPHILS 56.6 % (40-80); PLATELET COUNT 311 10x3/uL (130-400); RDW 13.5 % (11.5-14.5)
[2019-05-15 06:40] LABS: CALC OSMOLALITY 276 mosm/kg (275-300); CALCIUM 8.1 mg/dL (8.5-10.1); CARBON DIOXIDE 28.8 mmol/L (21.0-32.0); CHLORIDE - SERUM 104 mmol/L (98-107); CREATININE - SERUM 0.5 mg/dL (0.6-1.3); GLUCOSE 95 mg/dL (74-106); POTASSIUM - SERUM 4.7 mmol/L (3.5-5.1); SODIUM 138 mmol/L (136-145); eGFR NON AFRICAN AMERICAN > 90 mL/min (90-120)
[2019-05-15 06:46] LABS: UREA NITROGEN 14 mg/dL (7-18)
[2019-05-15 08:00] VITALS: BP 109/66
--- NOTE | 2019-05-15 08:00 | NUR ---
SHIFT ASSMT COMPLETED.
[2019-05-15 12:54] LABS: UDS - AMPHET NEGATIVE QUAL (NEGATIVE); UDS - BARB NEGATIVE QUAL (NEGATIVE); UDS - BENZO NEGATIVE QUAL (NEGATIVE); UDS - COCAINE NEGATIVE QUAL (NEGATIVE); UDS - OPIATE POSITIVE QUAL (NEGATIVE); UDS - PCP NEGATIVE QUAL (NEGATIVE); UDS - THC NEGATIVE QUAL (NEGATIVE)
--- NOTE | 2019-05-15 16:00 | NUR ---
WILL CONTINUE TO MONITOR.
[2019-05-15 19:48] VITALS: BP 121/63
--- NOTE | 2019-05-15 19:55 | NUR ---
PT RESTING IN BED WITH EYES OPEN. ALERT AND ORIENTED X 3. VOICED COMPLAINT OF EXTREME RIGHT HIP PAIN, STATING IT IS MUCH WORSE THAN USUAL, AND HE THINKS IS HAS A NEW FRACTURE. DR PRAKASH NOTIFIED, AND XRAY ORDERED. SR'S ARE UP X 2 IN BED. CALL LIGHT AND BEDSIDE TABLE ARE WITHIN EASY REACH.
--- NOTE | 2019-05-15 22:10 | NUR ---
PT RESTING IN BED WATCHING TV. NO NEEDS VOICED.
--- NOTE | 2019-05-15 23:59 | NUR ---
I have reviewed this patient and I concur with the Shift Assessment completed by the Licensed Practical Nurse today this shift.
--- NOTE | 2019-05-16 03:33 | NUR ---
PT LYING IN BED EYES CLOSED RESTING QUIETLY. CL IN REACH
--- NOTE | 2019-05-16 06:06 | NUR ---
PT RESTING IN BED WITH EYES CLOSED.
--- NOTE | 2019-05-16 08:00 | NUR ---
WHEN NURSE TOOK IN BREAKFAST TRAY AND TRIED TO WAKE UP PT HE STATED TO HER....."I'M SLEEPING MOTHER FKER"........NURSE EXPLAINED THAT KIND OF LANGUAGE WAS NOT ACCEPTABLE. PT REFUSED TO OPEN EYES OR RESPOND.
[2019-05-16 08:18] VITALS: BP 123/71
--- NOTE | 2019-05-16 08:45 | NUR ---
PT REFUSED ALL AM MEDS STATING "THEY DONT HELP ANYWAY". HE ALSO REFUSED THERAPY THIS MORNING.
--- NOTE | 2019-05-16 09:00 | NUR ---
LIGHT WAS LEFT ON IN PT'S ROOM AFTER NURSE CHECKED ON PT. NURSE WENT TO ANOTHER ROOM AND PT STARTED YELLING "TURN THE F*CKING LIFHT OFF"... OVER AND OVER....
--- NOTE | 2019-05-16 09:15 | NUR ---
NURSE HEARD PT TALKING ON PHONE TELLING SOMEONE TO COME GET HIM HE WANTED TO LEAVE HOSPITAL. NURSE ASKED PT IF HE REALLY WANTED TO LEAVE AND HE SAID YES, HIS RIDE WAS ON HIS WAY.
--- NOTE | 2019-05-16 11:15 | NUR ---
PT LEFT HOSPITAL AMA. HE SIGNED AMA PRIOR TO LEAVING. NURSE REMINDED HIM TO FOLLOW UP WITH HIS PCP. HE WHEELED OFF UNIT IN AND CLIMBED INTO VEHICLE WITH NO ASST.
--- NOTE | 2019-05-18 09:40 | NUR ---
PATIENT LEFT HOSPITAL ON 05/16/19 AMA. I HAVE LEFT MESSAGE FOR PATIENT TO CALL. NO RETURN CALL AT THIS TIME.
[2019-05-19] MEDS ORDERED: HYDROCODONE-A1 UDTA2 PO (13:58)
== END 2019-05-16 11:15 | disposition left against medical advice (07) | DRG 948 ==
LOC: D.REHAB 16:38
PROVIDERS: ADMIT Emergency Medicine; ATTEND Emergency Medicine
DX: R53.81 Other malaise (principal); D62 Acute posthemorrhagic anemia; Z96.641 Presence of right artificial hip joint; D64.9 Anemia, unspecified; G89.18 Other acute postprocedural pain; Z74.09 Other reduced mobility; R26.9 Unspecified abnormalities of gait and mobility; M16.11 Unilateral primary osteoarthritis, right hip

== ENCOUNTER 2019-05-20 09:25 | Inpatient (IN) | payer MEDICARE ==
[~2019-05-20] VITALS: Ht 175.3 cm; Wt 72.6 kg
[~2019-05-20 09:25] MED LIST changes: +HYDROCODONE-A1 UDTA2 PO
[2019-05-20 10:01] LABS: BASOPHILS 0.3 % (0-2); EOSINOPHILS 1.5 % (0-7); HEMATOCRIT 29.3 % (42.0-54.0); HEMOGLOBIN 9.6 g/dL (13.5-17.5); IMMATURE GRANULOCYTES 0.5 % (0-5); LYMPHOCYTES 15.6 % (15-50); MCH 31.2 pg (26.0-34.0); MCHC 32.8 g/dL (31.0-37.0); MCV 95.1 fL (80.0-100.0); MEAN PLATELET VOLUME 8.2 fL (7.4-10.4); MONOCYTES 8.9 % (2-11); NEUTROPHILS 73.2 % (40-80); PLATELET COUNT 325 10x3/uL (130-400); RBC 3.08 10x6/uL (4.20-6.10); WBC 6.2 10x3/uL (4.8-10.8)
[2019-05-20 10:11] LABS: CALC OSMOLALITY 280 mosm/kg (275-300); CALCIUM 8.9 mg/dL (8.5-10.1); CARBON DIOXIDE 28.9 mmol/L (21.0-32.0); CHLORIDE - SERUM 105 mmol/L (98-107); CREATININE - SERUM 0.5 mg/dL (0.6-1.3); GLUCOSE 96 mg/dL (74-106); POTASSIUM - SERUM 3.9 mmol/L (3.5-5.1); SODIUM 141 mmol/L (136-145); UREA NITROGEN 12 mg/dL (7-18); eGFR NON AFRICAN AMERICAN > 90 mL/min (90-120)
[2019-05-20 10:12] VITALS: BP 131/77; BMI 23.6
--- NOTE | 2019-05-20 13:06 | NUR ---
1030-ATTEMPTS X 6 PER 3 NURSES TO START IV. CATHETER WONT ADVANCE, ALTHOUGH GOOD BLOOD RETURN, THEN VEIN BLOWS. 1045-SURGERY DESK NOTIFIED ANESTHESIA WILL NEED TO START IV. HAS REQUIRED JUGULAR AND FOOT IV IN THE PAST.
[2019-05-20 18:37] LABS: APTT 29.1 SECONDS (22.8-39.4); INR 1.09 (0.85-1.17); PROTIME 13.6 SECONDS (11.6-15.0)
--- NOTE | 2019-05-20 19:48 | NUR ---
1855 PATIENT COMBATIVE AND GRABBING AT STAFF, AND IV TUBING. SOFT WRIST RESTRAINTS APPLIED.
--- NOTE | 2019-05-20 19:49 | NUR ---
193 PATIENT COORPERATIVE AND AWAKE AND ALERT, SOFT WRIST RESTRAINTS DISCONTINUED.
--- NOTE | 2019-05-20 20:01 | NUR ---
MEETS ANESTHESIA DISCHARGE CRITERIA
[2019-05-20 20:23] VITALS: BP 99/63
[2019-05-21] VITALS (7 sets, daily range): BP systolic 93–110; BP diastolic 48–100; BMI 23.6
[2019-05-21 06:34] LABS: BASOPHILS 0.4 % (0-2); EOSINOPHILS 0.8 % (0-7); HEMATOCRIT 25.4 % (42.0-54.0); HEMOGLOBIN 8.1 g/dL (13.5-17.5); IMMATURE GRANULOCYTES 0.4 % (0-5); LYMPHOCYTES 16.8 % (15-50); MCH 29.7 pg (26.0-34.0); MCHC 31.9 g/dL (31.0-37.0); MEAN PLATELET VOLUME 8.5 fL (7.4-10.4); MONOCYTES 7.9 % (2-11); NEUTROPHILS 73.7 % (40-80); PLATELET COUNT 328 10x3/uL (130-400); RBC 2.73 10x6/uL (4.20-6.10); RDW 16.2 % (11.5-14.5); WBC 7.4 10x3/uL (4.8-10.8)
[2019-05-21 06:49] LABS: CALC OSMOLALITY 275 mosm/kg (275-300); CALCIUM 8.3 mg/dL (8.5-10.1); CARBON DIOXIDE 27.4 mmol/L (21.0-32.0); CHLORIDE - SERUM 104 mmol/L (98-107); CREATININE - SERUM 0.6 mg/dL (0.6-1.3); GLUCOSE 109 mg/dL (74-106); POTASSIUM - SERUM 3.9 mmol/L (3.5-5.1); SODIUM 137 mmol/L (136-145); UREA NITROGEN 16 mg/dL (7-18); eGFR NON AFRICAN AMERICAN > 90 mL/min (90-120)
--- NOTE | 2019-05-21 07:00 | NUR ---
PATIENT RECIEVED RESTING IN BED POST OP DAY 1 FOLLOWING REVISION OF RIGHT HIP. DRESSING CDI
--- NOTE | 2019-05-21 11:57 | NUR ---
PATIENT RESTING QUIETLY AFTER DEMEROL GIVEN. PATIENT REFUSING TO GET OUT OF BED WITH PT
--- NOTE | 2019-05-21 18:48 | NUR ---
PATIENT RESTING IN BED WITH NO NEEDS VOICED, CL IN REACH
--- NOTE | 2019-05-21 20:00 | NUR ---
A/O WITH NO SIGNS OF ACUTE DISTRESS. IJ TO THE RIGHT, CDI. CLEAN, DRY DRESSING TO THE RT HIP WITH PALP PULSE TO THE FOOT. BLOODY DRAINAGE NOTED IN HEMOVAC. COMPLAINING OF 10/10 PAIN IN HIP. WILL GIVE PRN MEDS. DENIES ANYOTHER NEEDS AT THIS TIME. CONTINUE PLAN OF CARE.
[2019-05-22] VITALS (7 sets, daily range): BP systolic 96–111; BP diastolic 45–62
--- NOTE | 2019-05-22 02:15 | NUR ---
AT 2300 PT REQUESTED FOR IM PAIN MED. BP WAS AT 97/57. GAVE BLOUS OF 300ML TO MAINTAIN BP AND GIVE PAIN MED. REASSESSED BP OF 102/57 AND GAVE DEMEROL FOR PAIN. DRESSING SITE IS CLEAN, DRY AND PULSE NOTED TO THE RT FOOT. WILL CONTINUE TO MONITOR.
[2019-05-22 06:27] LABS: BASOPHILS 0.2 % (0-2); EOSINOPHILS 6.2 % (0-7); HEMATOCRIT 21.8 % (42.0-54.0); IMMATURE GRANULOCYTES 0.3 % (0-5); LYMPHOCYTES 16.8 % (15-50); MCH 29.8 pg (26.0-34.0); MCHC 32.1 g/dL (31.0-37.0); MCV 92.8 fL (80.0-100.0); MEAN PLATELET VOLUME 8.4 fL (7.4-10.4); MONOCYTES 10.4 % (2-11); NEUTROPHILS 66.1 % (40-80); RBC 2.35 10x6/uL (4.20-6.10); WBC 5.8 10x3/uL (4.8-10.8)
[2019-05-22 07:06] LABS: PLATELET COUNT 252 10x3/uL (130-400)
--- NOTE | 2019-05-22 15:43 | MORECARE ---
CASE MANAGEMENT DISCHARGE SUMMARY PATIENT: RAMIRO GORDON UNIT: [id number] ADM DATE: 05/20/19 AGE: 54 : 63 SEX: M ROOM/BED: D.2234 AUTHOR: EVONNE SANTA PHYSICIAN: REFERRING PHYSICIAN: JING ABREU MD DATE OF SERVICE: 05/22/19 Discharge Plan Patient Name: RAMIRO GORDON Facility: [facility]:[place] : 1965 Planned Disposition: Home with Home Health Anticipated Discharge Date: Discharge Date: Expected LOS: Initial Reviewer: [email or web address] Initial Review Date: 05/22/2019 Generated: 05/22/19 4:42 pm DCPIA - Discharge Planning Initial Assessment Updated by [email or web address]: Joaquina Ford on 05/22/19 3:41 pm * Is the patient Alert and Oriented? Yes * How many steps to enter\exit or inside your home? 0/0 * PCP None ?Dr. Fleming? * Pharmacy [facility] * Preadmission Environment Home with Family * ADLs Partial Dependent * Partial ADLs (Assistance needed) Ambulation * Equipment Crutch * List name and contact numbers for known caregivers / representatives who currently or will assist patient after discharge: Thalia pérez [phone] * Verbal permission to speak to the caregivers and representatives has been obtained from the patient. Yes * Community resources currently utilized None * Please name any agencies selected above. Thalia pérez - [phone] * Additional services required to return to the preadmission environment? Yes * Can the patient safely return to the preadmission environment? Yes * Has this patient been hospitalized within the prior 30 days at any hospital? Yes External Providers External Provider: [facility] Next Contact Date: Service Request Date: Service Type: Resolution: Reviewer: Comments: [facility] Contact Date: Service Request Date: Service Type: Resolution: Reviewer: Comments: Patient Name: RAMIRO GORDON Page [phone] at 1543 All edits/amendments must be made on the electronic document DICTATION DATE: 05/22/191541 CONSTRUCTION STONEMASON: VIKTORIYA 05/22/191541 RPT#: [id number] PR DATE: STATUS: ADM IN [facility] [address] [place] [address] END OF REPORT
--- NOTE | 2019-05-22 15:55 | MORECARE ---
CASE MANAGEMENT DISCHARGE SUMMARY PATIENT: RAMIRO GORDON UNIT: [id number] ADM DATE: 05/20/19 AGE: 54 : 63 SEX: M ROOM/BED: D.2234 AUTHOR: ARINADOC PHYSICIAN: REFERRING PHYSICIAN: JING CANNON MD DATE OF SERVICE: 05/22/19 Discharge Plan Patient Name: RAMIRO GORDON Facility: [facility]:[place] : 1965 Planned Disposition: Home with Home Health Anticipated Discharge Date: Discharge Date: Expected LOS: Initial Reviewer: [id number] Initial Review Date: 05/22/2019 Generated: 05/22/19 4:55 pm Comments DCP- Discharge Planning Updated by [id number]: Joaquina Ford on 05/22/19 2:[address] Patient Name: RAMIRO GORDON Admission Status: Elective Accout number: [id number] Admission Date: 05-20-2019 : 1965 Admission Diagnosis: Attending: JING CANNON Current LOS: 2 Anticipated DC Date: Planned Disposition: Home with Home Health Primary Insurance: MEDICARE A & B Discharge Planning Comments: CM met with patient to complete initial dc planning assessment. CM educated patient on the CM role and verbal consent given by patient to complete assessment. Patient lives at home with his brother. At discharge patient plans to return and feels this is a safe discharge. CM discussed availability of home health, rehab services, and medical equipment. Patient states he will need a walker and home health for PT. I called Moy Hernadez with Dr. Cannon and he states ok to order home health for when he is discharged. I called Reinaldo with [facility] and clinical faxed. I called Stephanie with [facility] and they will deliver walker today. CM will continue to follow and will assist as needed with dc plans/needs. Administrative Volunteer: Joaquina Ford DCPIA - Discharge Planning Initial Assessment Updated by [id number]: Joaquina Ford on 05/22/19 3:41 pm * Is the patient Alert and Oriented? Yes * How many steps to enter\exit or inside your home? 0/0 * PCP None ?Dr. Fleming? * Pharmacy [facility] on [address] * Preadmission Environment Home with Family * ADLs Partial Dependent * Partial ADLs (Assistance needed) Ambulation * Equipment Crutch * List name and contact numbers for known caregivers / representatives who currently or will assist patient after discharge: Thalia pérez - [phone] * Verbal permission to speak to the caregivers and representatives has been obtained from the patient. Yes * Community resources currently utilized None * Please name any agencies selected above. Thalia pérez - [phone] * Additional services required to return to the preadmission environment? Yes * Can the patient safely return to the preadmission environment? Yes * Has this patient been hospitalized within the prior 30 days at any hospital? Yes Coverage Notice Reviewer: [id number] Breanne Ford Notice Issued Date-Time: 05/22/2019 15:46 Notice Type: Patient Choice Letter Notice Delivered To: Patient Relationship to Patient: Self Visitor Use Assistant Name: Delivery Method: HAND - Hand Delivered Argenis Days: Prior Verbal Notification: Recipient Understood Notice: Yes Recipient Signature: Yes Med Rec Note Co-signed by Attending: Coverage Notice Comment: [facility] for 1. [facility]. [facility] Last DP export: 05/22/19 2:43 Patient Name: RAMIRO GORDON Page [id number] at 1555 All edits/amendments must be made on the electronic document DICTATION DATE: 05/22/191554 PROCESS IMPROVEMENT CONSULTANT: VIKTORIYA 05/22/191554 RPT#: [id number] DC DATE: STATUS: ADM IN [facility] [address] [place] [address] END OF REPORT
--- NOTE | 2019-05-22 18:01 | NUR ---
PT RESTING IN BED. NO SIGNS OF DISTRESS. IV TO RIGHT JUGULAR PATENT. HAS HEMOVAC TO RIGHT HIP. COMPLAINS OF PAIN. MEDICATIONS GIVEN. DENIES ANY FURTHER NEED AT THIS TIME. CALL LIGHT IN REACH. BED LOW POSITION. NO FAMILY AT BEDSIDE.
--- NOTE | 2019-05-22 18:30 | NUR ---
I have reviewed this patient and I concur with the Shift Assessment completed by the Licensed Practical Nurse today this shift.
[2019-05-23] VITALS: BP 110/62
[2019-05-23 04:00] VITALS: BP 115/70
[2019-05-23 06:04] LABS: BASOPHILS 0.3 % (0-2); IMMATURE GRANULOCYTES 0.4 % (0-5); LYMPHOCYTES 14.4 % (15-50); MCH 29.5 pg (26.0-34.0); MCHC 32.1 g/dL (31.0-37.0); MCV 91.8 fL (80.0-100.0); MEAN PLATELET VOLUME 8.9 fL (7.4-10.4); NEUTROPHILS 65.9 % (40-80); PLATELET COUNT 295 10x3/uL (130-400); WBC 6.7 10x3/uL (4.8-10.8)
[2019-05-23 06:09] LABS: HEMATOCRIT 29.3 % (42.0-54.0); HEMOGLOBIN 9.4 g/dL (13.5-17.5); RBC 3.19 10x6/uL (4.20-6.10)
--- NOTE | 2019-05-23 09:25 | NUR ---
PT ALERT X 4. BREATH SOUNDS CLEAR BILAT. IV TO RIGHT EJ, PATENT, DRESSING CDI. PT REPORTING PAIN OF 10/10, MEDICATED PER ORDERS, WILL MONITOR. DRESSING TO RIGHT HIP CDI. BED LOW, CALL LIGHT IN REACH. NO OTHER NEEDS AT THIS TIME.
[2019-05-23 10:11] VITALS: BP 111/62
[2019-05-23 13:15] VITALS: BP 133/73
[2019-05-23 16:36] VITALS: BP 137/70
[2019-05-23 20:22] VITALS: BP 134/68
--- NOTE | 2019-05-23 22:00 | NUR ---
PT EXCERCISING OPERATIVE LEG. BENDING/UNBENDING KNEE AND ANKLE PUMPS. ENCOURAGED PT TO DO PHYSICAL THERAPY TOMORROW. ASSESSMENT COMPLETE PER FLOW-SHEET. WILL CONTINUE TO MONITOR.
[2019-05-24 00:21] VITALS: BP 119/71
[2019-05-24 04:45] VITALS: BP 114/61
--- NOTE | 2019-05-24 09:29 | NUR ---
ALERT AND ORIENTED WITH DRESSING INTACT TO RT. HIP. ENCOURAGED TO AMBULATED TODAY AND HAS AGREED TO APPLY SCD'S AT THIS TIME. NO PERIPHERAL EDEMA NOTED WITH PEDAL PULSES NOTED. DENIES ANY PAIN OR DISCOMFORT AT THIS TIME. ENCOURAGED TO USE CALL LIGHT FOR ASSSIT.
[2019-05-24 12:38] VITALS: BP 114/65
[2019-05-24 21:09] VITALS: BP 127/67
[2019-05-25 04:47] VITALS: BP 119/73
--- NOTE | 2019-05-25 08:00 | NUR ---
ASSESSMENT PER FLOW SHEET. PT IS WITHOUT DISTRESS.MONITOR FOR NEEDS.FALL PREVENTION IN PLACE.
[2019-05-25 08:01] VITALS: BP 115/72
[2019-05-25 11:22] LABS: BASOPHILS 0.4 % (0-2); EOSINOPHILS 6.5 % (0-7); HEMOGLOBIN 9.3 g/dL (13.5-17.5); IMMATURE GRANULOCYTES 0.4 % (0-5); MCH 29.7 pg (26.0-34.0); MCHC 32.1 g/dL (31.0-37.0); MCV 92.7 fL (80.0-100.0); MEAN PLATELET VOLUME 8.5 fL (7.4-10.4); MONOCYTES 9.4 % (2-11); NEUTROPHILS 64.3 % (40-80); PLATELET COUNT 321 10x3/uL (130-400); RBC 3.13 10x6/uL (4.20-6.10); RDW 15.7 % (11.5-14.5); WBC 5.4 10x3/uL (4.8-10.8)
[2019-05-25 11:38] LABS: CALC OSMOLALITY 274 mosm/kg (275-300); CALCIUM 8.4 mg/dL (8.5-10.1); CARBON DIOXIDE 32.4 mmol/L (21.0-32.0); CHLORIDE - SERUM 102 mmol/L (98-107); CREATININE - SERUM 0.7 mg/dL (0.6-1.3); GLUCOSE 99 mg/dL (74-106); POTASSIUM - SERUM 4.1 mmol/L (3.5-5.1); SODIUM 138 mmol/L (136-145); UREA NITROGEN 9 mg/dL (7-18); VANCOMYCIN - TROUGH 21.7 ug/mL (10.0-20.0); eGFR NON AFRICAN AMERICAN > 90 mL/min (90-120)
[2019-05-25 13:19] VITALS: BP 110/59
[2019-05-25 14:38] VITALS: Ht 175.3 cm; Wt 72.6 kg
[2019-05-25 16:44] VITALS: BP 114/60
--- NOTE | 2019-05-25 19:00 | NUR ---
PT REMAINS WITHOUTDISTRESS.CONT PLAN OF CARE
[2019-05-25 20:50] VITALS: BP 128/64
--- NOTE | 2019-05-25 21:00 | NUR ---
A&O X 4. REPORTS PAIN OF 9/10 TO HIP. INFORMED OF NEED FOR UA. PT ALSO REPORTS FREQUENCY OF VOIDS, MILD PAIN WHILE VOIDING, AND FEELING OF INCOMPLETE BLADDER EMPTYING. URINE IS CLEAR AND YELLOW. DENIES FURTHER NEEDS AT THIS TIME.
[2019-05-25 22:51] LABS: APPEARANCE CLEAR (CLEAR); BILIRUBIN NEGATIVE (NEGATIVE); COLOR YELLOW (YELLOW); GLUCOSE NEGATIVE (NEGATIVE); KETONE NEGATIVE (NEGATIVE); NITRITE NEGATIVE (NEGATIVE); PROTEIN NEGATIVE (NEGATIVE); UROBILINOGEN NORMAL (NORMAL)
[2019-05-26 01:04] VITALS: BP 121/73
--- NOTE | 2019-05-26 01:34 | NUR ---
I have reviewed this patient and I concur with the Shift Assessment completed by the Licensed Practical Nurse today this shift.
[2019-05-26 04:50] VITALS: BP 115/70
[2019-05-26 05:17] LABS: BASOPHILS 0.5 % (0-2); EOSINOPHILS 7.3 % (0-7); HEMATOCRIT 28.5 % (42.0-54.0); HEMOGLOBIN 8.9 g/dL (13.5-17.5); IMMATURE GRANULOCYTES 0.8 % (0-5); LYMPHOCYTES 22.6 % (15-50); MCH 29.1 pg (26.0-34.0); MCHC 31.2 g/dL (31.0-37.0); MCV 93.1 fL (80.0-100.0); MEAN PLATELET VOLUME 8.8 fL (7.4-10.4); MONOCYTES 15.3 % (2-11); NEUTROPHILS 53.5 % (40-80); PLATELET COUNT 346 10x3/uL (130-400); RBC 3.06 10x6/uL (4.20-6.10); RDW 15.5 % (11.5-14.5)
[2019-05-26 05:42] LABS: CALC OSMOLALITY 276 mosm/kg (275-300); CALCIUM 8.2 mg/dL (8.5-10.1); CARBON DIOXIDE 29.7 mmol/L (21.0-32.0); CHLORIDE - SERUM 104 mmol/L (98-107); CREATININE - SERUM 0.6 mg/dL (0.6-1.3); GLUCOSE 100 mg/dL (74-106); POTASSIUM - SERUM 4.3 mmol/L (3.5-5.1); SODIUM 139 mmol/L (136-145); UREA NITROGEN 10 mg/dL (7-18); eGFR NON AFRICAN AMERICAN > 90 mL/min (90-120)
--- NOTE | 2019-05-26 08:00 | NUR ---
ASSESSMENT PER FLOW SHEET. PT IS WITHOUT DISTRESS.FALL PREVENTION IN PLACE WITH DONAL. MONITOR FOR NEEDS.
[2019-05-26 08:27] VITALS: BP 118/68
--- NOTE | 2019-05-26 10:19 | MORECARE ---
CASE MANAGEMENT DISCHARGE SUMMARY PATIENT: RAMIRO GORDON UNIT: [id number] ADM DATE: 05/20/19 AGE: 54 : 63 SEX: M ROOM/BED: D.2234 AUTHOR: ARINADOC PHYSICIAN: REFERRING PHYSICIAN: JING CANNON MD DATE OF SERVICE: 05/26/19 Discharge Plan Patient Name: RAMIRO GORDON Facility: [facility]:[place] : 1965 Planned Disposition: Home with Home Health Anticipated Discharge Date: Discharge Date: Expected LOS: Initial Reviewer: [id number] Initial Review Date: 05/22/2019 Generated: 05/26/19 11:19 am Comments DCP- Discharge Planning Updated by [email or web address]: Joaquina Ford on 05/22/19 2:[address] Patient Name: RAMIRO GORDON Admission Status: Elective Accout number: [id number] Admission Date: 05-20-2019 : 1965 Admission Diagnosis: Attending: JING CANNON Current LOS: 2 Anticipated DC Date: Planned Disposition: Home with Home Health Primary Insurance: MEDICARE A & B Discharge Planning Comments: CM met with patient to complete initial dc planning assessment. CM educated patient on the CM role and verbal consent given by patient to complete assessment. Patient lives at home with his brother. At discharge patient plans to return and feels this is a safe discharge. CM discussed availability of home health, rehab services, and medical equipment. Patient states he will need a walker and home health for PT. I called Moy Hernadez with Dr. Cannon and he states ok to order home health for when he is discharged. I called Reinaldo with [facility] and clinical faxed. I called Stephanie with [facility] and they will deliver walker today. CM will continue to follow and will assist as needed with dc plans/needs. Private Detective: Joaquina Ford DCPIA - Discharge Planning Initial Assessment Updated by [id number]: Joaquina Ford on 05/22/19 3:41 pm * Is the patient Alert and Oriented? Yes * How many steps to enter\exit or inside your home? 0/0 * PCP None ?Dr. Fleming? * Pharmacy [facility] on [address] * Preadmission Environment Home with Family * ADLs Partial Dependent * Partial ADLs (Assistance needed) Ambulation * Equipment Crutch * List name and contact numbers for known caregivers / representatives who currently or will assist patient after discharge: Thalia pérez - [phone] * Verbal permission to speak to the caregivers and representatives has been obtained from the patient. Yes * Community resources currently utilized None * Please name any agencies selected above. Thalia pérez - [phone] * Additional services required to return to the preadmission environment? Yes * Can the patient safely return to the preadmission environment? Yes * Has this patient been hospitalized within the prior 30 days at any hospital? Yes External Providers [facility] Next Contact Date: Service Request Date: Service Type: Resolution: Reviewer: Comments: Coverage Notice Reviewer: [id number] Ford Notice Issued Date-Time: 05/22/2019 15:46 Notice Type: Patient Choice Letter Notice Delivered To: Patient Relationship to Patient: Self Receiving Barn Custodian Name: Delivery Method: HAND - Hand Delivered Argenis Days: Prior Verbal Notification: Recipient Understood Notice: Yes Recipient Signature: Yes Med Rec Note Co-signed by Attending: Coverage Notice Comment: [facility]. [facility]. [facility] Reviewer: [id number] Ford Notice Issued Date-Time: 05/26/2019 10:00 Notice Type: IM Discharge Notice Notice Delivered To: Patient Relationship to Patient: Self Receiving Barn Custodian Name: Delivery Method: HAND - Hand Delivered Argenis Days: Prior Verbal Notification: Recipient Understood Notice: Yes Recipient Signature: Yes Med Rec Note Co-signed by Attending: Coverage Notice Comment: IMM explained, signed, given, copy placed in MR Reviewer: [id number] Ford Notice Issued Date-Time: 05/26/2019 10:00 Notice Type: Patient Choice Letter Notice Delivered To: Patient Relationship to Patient: Self Receiving Barn Custodian Name: Delivery Method: HAND - Hand Delivered Argenis Days: Prior Verbal Notification: Recipient Understood Notice: Yes Recipient Signature: Yes Med Rec Note Co-signed by Attending: Coverage Notice Comment: ALEX for Gene Natarajan DP export: 05/22/19 2:55 Patient Name: RAMIRO GORDON Page [phone] at 1019 All edits/amendments must be made on the electronic document DICTATION DATE: 05/26/19 101 LEAD ELECTRICAL CONTROLS ENGINEER: VIKTORIYA 05/26/19 1019 RPT#: [id number] DC DATE: STATUS: ADM IN [facility] [address] [place] [address] END OF REPORT
--- NOTE | 2019-05-26 10:55 | NUR ---
PREVENA DRESSING APPLIED TO RIGHT HIP INCISION AND ATTACHED TO PREVENA PUMP. INFORMATION GIVEN TO PT ABOUT PURPOSE AND FUNCTION OF SYSTEM. HE VOICED UNDERSTANDING.
--- NOTE | 2019-05-26 11:20 | MORECARE ---
CASE MANAGEMENT DISCHARGE SUMMARY PATIENT: RAMIRO GORDON UNIT: [id number] ADM DATE: 05/20/19 AGE: 54 : 63 SEX: M ROOM/BED: D.2234 AUTHOR: EVONNE SANTA PHYSICIAN: REFERRING PHYSICIAN: JING CANNON MD DATE OF SERVICE: 05/26/19 Discharge Plan Patient Name: RAMIRO GORDON Facility: [facility]:[place] : 1965 Planned Disposition: Home with Home Health Anticipated Discharge Date: Discharge Date: Expected LOS: Initial Reviewer: [id number] Initial Review Date: 05/22/2019 Generated: 05/26/19 12:19 pm Comments DCP- Discharge Planning Updated by [id number]: Joaquina Ford on 05/26/19 10:[address] Patient Name: RAMIRO GORDON Admission Status: Elective Accout number: [id number] Admission Date: 05-20-2019 : 1965 Admission Diagnosis: Attending: JING CANNON Current LOS: 6 Anticipated DC Date: Planned Disposition: Home with Home Health Primary Insurance: MEDICARE A & B Discharge Planning Comments: CM met with patient about IV antibiotics at home vs SNF. He would like to go to [facility]. His mother lives near [facility]. I spoke with Dede at [facility] and clinical faxed. I spoke with Laura with vascular access and informed her of 6 weeks of IV antibiotics per Dr. Cannon. CM will continue to follow and assist with discharge planning/needs. Peanut Salter: Joaquina Ford DCP- Discharge Planning Updated by [id number]: Joaquina Ford on 05/22/19 2:[address] Patient Name: RAMIRO GORDON Admission Status: Elective Accout number: [id number] Admission Date: 05-20-2019 : 1965 Admission Diagnosis: Attending: JING CANNON Current LOS: 2 Anticipated DC Date: Planned Disposition: Home with Home Health Primary Insurance: MEDICARE A & B Discharge Planning Comments: CM met with patient to complete initial dc planning assessment. CM educated patient on the CM role and verbal consent given by patient to complete assessment. Patient lives at home with his brother. At discharge patient plans to return and feels this is a safe discharge. CM discussed availability of home health, rehab services, and medical equipment. Patient states he will need a walker and home health for PT. I called Moy Hernadez with Dr. Cannon and he states ok to order home health for when he is discharged. I called Reinaldo with [facility] and clinical faxed. I called Stephanie with [facility] and they will deliver walker today. CM will continue to follow and will assist as needed with dc plans/needs. Peanut Salter: Joaquina Ford DCPIA - Discharge Planning Initial Assessment Updated by [id number]: Joaquina Ford on 05/22/19 3:41 pm * Is the patient Alert and Oriented? Yes * How many steps to enter\exit or inside your home? 0/0 * PCP None ?Dr. Fleming? * Pharmacy [facility] on [address] * Preadmission Environment Home with Family * ADLs Partial Dependent * Partial ADLs (Assistance needed) Ambulation * Equipment Crutch * List name and contact numbers for known caregivers / representatives who currently or will assist patient after discharge: Thalia pérez - [phone] * Verbal permission to speak to the caregivers and representatives has been obtained from the patient. Yes * Community resources currently utilized None * Please name any agencies selected above. Thalia pérez - [phone] * Additional services required to return to the preadmission environment? Yes * Can the patient safely return to the preadmission environment? Yes * Has this patient been hospitalized within the prior 30 days at any hospital? Yes Coverage Notice Reviewer: [id number] Breanne Ford Notice Issued Date-Time: 05/22/2019 15:46 Notice Type: Patient Choice Letter Notice Delivered To: Patient Relationship to Patient: Self Hose Builder Name: Delivery Method: HAND - Hand Delivered Argenis Days: Prior Verbal Notification: Recipient Understood Notice: Yes Recipient Signature: Yes Med Rec Note Co-signed by Attending: Coverage Notice Comment: [facility]LEX for 1. [facility] 2. [facility] Reviewer: [email or web address] Breanne Ford Notice Issued Date-Time: 05/26/2019 10:00 Notice Type: IM Discharge Notice Notice Delivered To: Patient Relationship to Patient: Self Hose Builder Name: Delivery Method: HAND - Hand Delivered Argenis Days: Prior Verbal Notification: Recipient Understood Notice: Yes Recipient Signature: Yes Med Rec Note Co-signed by Attending: Coverage Notice Comment: IMM explained, signed, given, copy placed in MR Reviewer: [id number] Breanne Ford Notice Issued Date-Time: 05/26/2019 10:00 Notice Type: Patient Choice Letter Notice Delivered To: Patient Relationship to Patient: Self Hose Builder Name: Delivery Method: HAND - Hand Delivered Argenis Days: Prior Verbal Notification: Recipient Understood Notice: Yes Recipient Signature: Yes Med Rec Note Co-signed by Attending: Coverage Notice Comment: ALEX for Gene Yeager Last DP export: 05/26/19 9:19 Patient Name: RAMIRO GORDON Page [id number] at 1120 All edits/amendments must be made on the electronic document DICTATION DATE: 05/26/191118 CERTIFIED PUBLIC ACCOUNTANT: VIKTORIYA 05/26/191118 RPT#: [id number] DC DATE: STATUS: ADM IN [facility] [address] [place] [address] END OF REPORT
[2019-05-26 12:34] VITALS: BP 123/66
--- NOTE | 2019-05-26 13:14 | MORECARE ---
CASE MANAGEMENT DISCHARGE SUMMARY PATIENT: RAMIRO GORDON UNIT: [id number] ADM DATE: 05/20/19 AGE: 54 : 63 SEX: M ROOM/BED: D.2234 AUTHOR: EVONNE SANTA PHYSICIAN: REFERRING PHYSICIAN: JING CANNON MD DATE OF SERVICE: 05/26/19 Discharge Plan Patient Name: RAMIRO GORDON Facility: [facility]:[place] : 1965 Planned Disposition: Home with Home Health Anticipated Discharge Date: Discharge Date: Expected LOS: Initial Reviewer: [email or web address] Initial Review Date: 05/22/2019 Generated: 05/26/19 2:14 pm Comments DCP- Discharge Planning Updated by [email or web address]: Joaquina Ford on 05/26/19 10:[address] Patient Name: RAMIRO GORDON Admission Status: Elective Accout number: [id number] Admission Date: 05-20-2019 : 1965 Admission Diagnosis: Attending: JING CANNON Current LOS: 6 Anticipated DC Date: Planned Disposition: Home with Home Health Primary Insurance: MEDICARE A & B Discharge Planning Comments: CM met with patient about IV antibiotics at home vs SNF. He would like to go to [facility]. His mother lives near [facility]. I spoke with Dede at [facility] and clinical faxed. I spoke with Laura with vascular access and informed her of 6 weeks of IV antibiotics per Dr. Cannon. CM will continue to follow and assist with discharge planning/needs. Pin Attacher: Joaquina Ford DCP- Discharge Planning Updated by [id number]: Joaquina Ford on 05/22/19 2:[address] Patient Name: RAMIRO GORDON Admission Status: Elective Accout number: [id number] Admission Date: 05-20-2019 : 1965 Admission Diagnosis: Attending: JING CANNON Current LOS: 2 Anticipated DC Date: Planned Disposition: Home with Home Health Primary Insurance: MEDICARE A & B Discharge Planning Comments: CM met with patient to complete initial dc planning assessment. CM educated patient on the CM role and verbal consent given by patient to complete assessment. Patient lives at home with his brother. At discharge patient plans to return and feels this is a safe discharge. CM discussed availability of home health, rehab services, and medical equipment. Patient states he will need a walker and home health for PT. I called Moy Hernadez with Dr. Cannon and he states ok to order home health for when he is discharged. I called Reinaldo with [facility] and clinical faxed. I called Stephanie with [facility] and they will deliver walker today. CM will continue to follow and will assist as needed with dc plans/needs. Pin Attacher: Joaquina Ford DCPIA - Discharge Planning Initial Assessment Updated by [id number]: Joaquina Ford on 05/22/19 3:41 pm * Is the patient Alert and Oriented? Yes * How many steps to enter\exit or inside your home? 0/0 * PCP None ?Dr. Fleming? * [facility] [place] * Preadmission Environment Home with Family * ADLs Partial Dependent * Partial ADLs (Assistance needed) Ambulation * Equipment Crutch * List name and contact numbers for known caregivers / representatives who currently or will assist patient after discharge: Thalia pérez - [phone] * Verbal permission to speak to the caregivers and representatives has been obtained from the patient. Yes * Community resources currently utilized None * Please name any agencies selected above. Thalia pérez - [phone] * Additional services required to return to the preadmission environment? Yes * Can the patient safely return to the preadmission environment? Yes * Has this patient been hospitalized within the prior 30 days at any hospital? Yes External Providers External Provider: [facility] Next Contact Date: Service Request Date: Service Type: Resolution: Reviewer: Comments: Coverage Notice Reviewer: [id number] Breanne Ford Notice Issued Date-Time: 05/22/2019 15:46 Notice Type: Patient Choice Letter Notice Delivered To: Patient Relationship to Patient: Self Patternmaker Sample Name: Delivery Method: HAND - Hand Delivered Argenis Days: Prior Verbal Notification: Recipient Understood Notice: Yes Recipient Signature: Yes Med Rec Note Co-signed by Attending: Coverage Notice Comment: ALEX for 1. [facility] 2. Alfredo and [facility] Reviewer: [id number] Breanne Ford Notice Issued Date-Time: 05/26/2019 10:00 Notice Type: IM Discharge Notice Notice Delivered To: Patient Relationship to Patient: Self Patternmaker Sample Name: Delivery Method: HAND - Hand Delivered Argenis Days: Prior Verbal Notification: Recipient Understood Notice: Yes Recipient Signature: Yes Med Rec Note Co-signed by Attending: Coverage Notice Comment: IMM explained, signed, given, copy placed in MR Reviewer: [id number] Breanne Ford Notice Issued Date-Time: 05/26/2019 10:00 Notice Type: Patient Choice Letter Notice Delivered To: Patient Relationship to Patient: Self Patternmaker Sample Name: Delivery Method: HAND - Hand Delivered Argenis Days: Prior Verbal Notification: Recipient Understood Notice: Yes Recipient Signature: Yes Med Rec Note Co-signed by Attending: Coverage Notice Comment: [facility] Last DP export: 05/26/19 10:20 Patient Name: RAMIRO GORDON Page [id number] at 1314 All edits/amendments must be made on the electronic document DICTATION DATE: 05/26/19 1314 PRIMER INSERTING MACHINE OPERATOR: VIKTORIYA 05/26/19 1314 RPT#: [id number] DC DATE: STATUS: ADM IN [facility] [address] [place] [address] END OF REPORT
--- NOTE | 2019-05-26 13:41 | MORECARE ---
CASE MANAGEMENT DISCHARGE SUMMARY PATIENT: RAMIRO GORDON UNIT: [id number] ADM DATE: 05/20/19 AGE: 54 : 63 SEX: M ROOM/BED: D.2234 AUTHOR: EVONNE SANTA PHYSICIAN: REFERRING PHYSICIAN: JING CANNON MD DATE OF SERVICE: 05/26/19 Discharge Plan Patient Name: RAMIRO GORDON Facility: [facility]:[place] : 1965 Planned Disposition: Home with Home Health Anticipated Discharge Date: Discharge Date: Expected LOS: Initial Reviewer: [email or web address] Initial Review Date: 05/22/2019 Generated: 05/26/19 2:40 pm Comments DCP- Discharge Planning Updated by [email or web address]: Joaquina Ford on 05/26/19 12:[address] [facility] has declined admission because of history of methamphetamine use and leaving BLAIR from inpatient rehab. I informed the patient. He states he left A because "I got into it with someone." He states methamphetamine use was years ago. He would like a referral to [facility]. [facility], and clinical faxed. CM will continue to follow and assist with discharge planning/needs. DCP- Discharge Planning Updated by [email or web address]: Joaquina Ford on 05/26/19 10:[address] Patient Name: RAMIRO GORDON Admission Status: Elective Accout number: [id number] Admission Date: 05-20-2019 : 1965 Admission Diagnosis: Attending: JING CANNON Current LOS: 6 Anticipated DC Date: Planned Disposition: Home with Home Health Primary Insurance: MEDICARE A & B Discharge Planning Comments: CM met with patient about IV antibiotics at home vs SNF. He would like to go to [facility]. His mother lives near [facility]. I spoke with Dede at [facility] and clinical faxed. I spoke with Laura with vascular access and informed her of 6 weeks of IV antibiotics per Dr. Cannon. CM will continue to follow and assist with discharge planning/needs. Form Builder Helper: Joaquina Ford DCP- Discharge Planning Updated by [email or web address]: Joaquina Ford on 05/22/19 2:[address] Patient Name: RAMIRO GORDON Admission Status: Elective Accout number: [id number] Admission Date: 05-20-2019 : 1965 Admission Diagnosis: Attending: JING CANNON Current LOS: 2 Anticipated DC Date: Planned Disposition: Home with Home Health Primary Insurance: MEDICARE A & B Discharge Planning Comments: CM met with patient to complete initial dc planning assessment. CM educated patient on the CM role and verbal consent given by patient to complete assessment. Patient lives at home with his brother. At discharge patient plans to return and feels this is a safe discharge. CM discussed availability of home health, rehab services, and medical equipment. Patient states he will need a walker and home health for PT. I called Moy Hernadez with Dr. Cannon and he states ok to order home health for when he is discharged. I called Reinaldo with [facility] and clinical faxed. I called Stephanie with [facility] and they will deliver walker today. CM will continue to follow and will assist as needed with dc plans/needs. Form Builder Helper: Joaquina Ford DCPIA - Discharge Planning Initial Assessment Updated by [email or web address]: Joaquina Ford on 05/22/19 3:41 pm * Is the patient Alert and Oriented? Yes * How many steps to enter\\exit or inside your home? 0/0 * PCP None ?Dr. Fleming? * Pharmacy [facility] * Preadmission Environment Home with Family * ADLs Partial Dependent * Partial ADLs (Assistance needed) Ambulation * Equipment Crutch * List name and contact numbers for known caregivers / representatives who currently or will assist patient after discharge: Thalia pérez - [phone] * Verbal permission to speak to the caregivers and representatives has been obtained from the patient. Yes * Community resources currently utilized None * Please name any agencies selected above. Thalia pérez - [phone] * Additional services required to return to the preadmission environment? Yes * Can the patient safely return to the preadmission environment? Yes * Has this patient been hospitalized within the prior 30 days at any hospital? Yes Coverage Notice Reviewer: [id number] - Joaquina Ford Notice Issued Date-Time: 05/22/2019 15:46 Notice Type: Patient Choice Letter Notice Delivered To: Patient Relationship to Patient: Self Acute Dialysis Nurse Name: Delivery Method: HAND - Hand Delivered Argenis Days: Prior Verbal Notification: Recipient Understood Notice: Yes Recipient Signature: Yes Med Rec Note Co-signed by Attending: Coverage Notice Comment: [facility]LEX for 1. [facility]. [facility] Reviewer: [id number] Breanne Ford Notice Issued Date-Time: 05/26/2019 10:00 Notice Type: IM Discharge Notice Notice Delivered To: Patient Relationship to Patient: Self Acute Dialysis Nurse Name: Delivery Method: HAND - Hand Delivered Argenis Days: Prior Verbal Notification: Recipient Understood Notice: Yes Recipient Signature: Yes Med Rec Note Co-signed by Attending: Coverage Notice Comment: IMM explained, signed, given, copy placed in MR Reviewer: [email or web address] Breanne Ford Notice Issued Date-Time: 05/26/2019 10:00 Notice Type: Patient Choice Letter Notice Delivered To: Patient Relationship to Patient: Self Acute Dialysis Nurse Name: Delivery Method: HAND - Hand Delivered Argenis Days: Prior Verbal Notification: Recipient Understood Notice: Yes Recipient Signature: Yes Med Rec Note Co-signed by Attending: Coverage Notice Comment: ALEX for [facility] OR [facility] Last DP export: 05/26/19 12:14 Patient Name: RAMIRO GORDON Page [id number] at 1341 All edits/amendments must be made on the electronic document DICTATION DATE: 05/26/19 1340 CAR RENTAL MANAGER: VIKTORIYA 05/26/19 1340 RPT#: [id number] DC DATE: STATUS: ADM IN [facility] [address] [place] [address] END OF REPORT
--- NOTE | 2019-05-26 14:18 | MORECARE ---
CASE MANAGEMENT DISCHARGE SUMMARY PATIENT: RAMIRO GORDON UNIT: [id number] ADM DATE: 05/20/19 AGE: 54 : 63 SEX: M ROOM/BED: D.2234 AUTHOR: EVONNE SANTA PHYSICIAN: REFERRING PHYSICIAN: JING CANNON MD DATE OF SERVICE: 05/26/19 Discharge Plan Patient Name: RAMIRO GORDON Facility: [facility]:[place] : 1965 Planned Disposition: Home with Home Health Anticipated Discharge Date: Discharge Date: Expected LOS: Initial Reviewer: [email or web address] Initial Review Date: 05/22/2019 Generated: 05/26/19 3:17 pm Comments DCP- Discharge Planning Updated by [email or web address]: Joaquina Ford on 05/26/19 1:[address] Barbara from [facility] states they will accept patient to skilled facility when ready for discharge. I sent a message to Torri Farias and informed patient. CM will continue to follow and assist with discharge planning/needs. DCP- Discharge Planning Updated by [id number]: Joaquina Logan on 05/26/19 12:[address] [facility] has declined admission because of history of methamphetamine use and leaving AMA from inpatient rehab. I informed the patient. He states he left A because "I got into it with someone." He states methamphetamine use was years ago. He would like a referral to [facility]. I called shellie Ramirez for [facility], and clinical faxed. CM will continue to follow and assist with discharge planning/needs. DCP- Discharge Planning Updated by [id number]: Joaquina Ford on 05/26/19 10:[address] Patient Name: RAMIRO GORDON Admission Status: Elective Accout number: [id number] Admission Date: 05-20-2019 : 1965 Admission Diagnosis: Attending: JING CANNON Current LOS: 6 Anticipated DC Date: Planned Disposition: Home with Home Health Primary Insurance: MEDICARE A & B Discharge Planning Comments: CM met with patient about IV antibiotics at home vs SNF. He would like to go to [facility]. His mother lives near [facility]. I spoke with Dede at [facility] and clinical faxed. I spoke with Laura with vascular access and informed her of 6 weeks of IV antibiotics per Dr. Cannon. CM will continue to follow and assist with discharge planning/needs. Amusement Centre Manager: Joaquina Ford DCP- Discharge Planning Updated by [email or web address]: Joaquina Ford on 05/22/19 2:[address] Patient Name: RAMIRO GORDON Admission Status: Elective Accout number: [id number] Admission Date: 05-20-2019 : 1965 Admission Diagnosis: Attending: JING CANNON Current LOS: 2 Anticipated DC Date: Planned Disposition: Home with Home Health Primary Insurance: MEDICARE A & B Discharge Planning Comments: CM met with patient to complete initial dc planning assessment. CM educated patient on the CM role and verbal consent given by patient to complete assessment. Patient lives at home with his brother. At discharge patient plans to return and feels this is a safe discharge. CM discussed availability of home health, rehab services, and medical equipment. Patient states he will need a walker and home health for PT. I called Moy Hernadez with Dr. Cannon and he states ok to order home health for when he is discharged. I called Reinaldo with [facility] and clinical faxed. I called Stephanie with [facility] and they will deliver walker today. CM will continue to follow and will assist as needed with dc plans/needs. Amusement Centre Manager: Joaquina Olivaresmellisa DCPIA - Discharge Planning Initial Assessment Updated by [id number]: Joaquina Ford on 05/22/19 3:41 pm * Is the patient Alert and Oriented? Yes * How many steps to enter\\exit or inside your home? 0/0 * PCP None ?Dr. Fleming? * Pharmacy [facility] [address] * Preadmission Environment Home with Family * ADLs Partial Dependent * Partial ADLs (Assistance needed) Ambulation * Equipment Crutch * List name and contact numbers for known caregivers / representatives who currently or will assist patient after discharge: Thalia Raymundo mother - [phone] * Verbal permission to speak to the caregivers and representatives has been obtained from the patient. Yes * Community resources currently utilized None * Please name any agencies selected above. Thalia Flores - mother - [phone] * Additional services required to return to the preadmission environment? Yes * Can the patient safely return to the preadmission environment? Yes * Has this patient been hospitalized within the prior 30 days at any hospital? Yes Coverage Notice Reviewer: [id number] Ford Notice Issued Date-Time: 05/22/2019 15:46 Notice Type: Patient Choice Letter Notice Delivered To: Patient Relationship to Patient: Self Managing Partner [employer] Name: Delivery Method: HAND - Hand Delivered Argenis Days: Prior Verbal Notification: Recipient Understood Notice: Yes Recipient Signature: Yes Med Rec Note Co-signed by Attending: Coverage Notice Comment: ALEX for 1. [facility]. [facility] Reviewer: [id number] Ford Notice Issued Date-Time: 05/26/2019 10:00 Notice Type: IM Discharge Notice Notice Delivered To: Patient Relationship to Patient: Self Managing Partner [employer] Name: Delivery Method: HAND - Hand Delivered Argenis Days: Prior Verbal Notification: Recipient Understood Notice: Yes Recipient Signature: Yes Med Rec Note Co-signed by Attending: Coverage Notice Comment: IMM explained, signed, given, copy placed in MR Reviewer: [id number] Ford Notice Issued Date-Time: 05/26/2019 10:00 Notice Type: Patient Choice Letter Notice Delivered To: Patient Relationship to Patient: Self Managing Partner [employer] Name: Delivery Method: HAND - Hand Delivered Argenis Days: Prior Verbal Notification: Recipient Understood Notice: Yes Recipient Signature: Yes Med Rec Note Co-signed by Attending: Coverage Notice Comment: ALEX for [facility] Last DP export: 05/26/19 12:41 Patient Name: RAMIRO GORDON Page [id number] at 1418 All edits/amendments must be made on the electronic document DICTATION DATE: 05/26/191416 INBOUND CUSTOMER SERVICE AGENT: VIKTORIYA 05/26/19 141 RPT#: [id number] DC DATE: STATUS: ADM IN [facility] [address] [place] [address] END OF REPORT
[2019-05-26 17:19] VITALS: BP 128/75
--- NOTE | 2019-05-26 18:25 | NUR ---
REMAINS WITHOUT NEEDS.PT IS WITHOUT DISTRESS.CONT PLAN OF CARE
--- NOTE | 2019-05-26 20:00 | NUR ---
ALERT RESTING IN BED C/O PAIN TO RIGHT HIP, REQUESTING PAIN MEDICATION SOON TIME, SEE SHIFT ASSESSMENT, CALL LIGHT IN REACH
[2019-05-26 20:34] VITALS: BP 118/65
[2019-05-27 01:19] VITALS: BP 114/60
[2019-05-27 05:03] VITALS: BP 116/66
[2019-05-27 05:56] LABS: BASOPHILS 0.6 % (0-2); EOSINOPHILS 5.8 % (0-7); HEMOGLOBIN 9.5 g/dL (13.5-17.5); IMMATURE GRANULOCYTES 0.4 % (0-5); LYMPHOCYTES 20.8 % (15-50); MCH 29.2 pg (26.0-34.0); MCHC 31.7 g/dL (31.0-37.0); MCV 92.3 fL (80.0-100.0); MEAN PLATELET VOLUME 8.8 fL (7.4-10.4); MONOCYTES 12.8 % (2-11); NEUTROPHILS 59.6 % (40-80); PLATELET COUNT 387 10x3/uL (130-400); RBC 3.25 10x6/uL (4.20-6.10); RDW 15.1 % (11.5-14.5); WBC 4.7 10x3/uL (4.8-10.8)
[2019-05-27 06:12] LABS: CALC OSMOLALITY 271 mosm/kg (275-300); CALCIUM 8.4 mg/dL (8.5-10.1); CARBON DIOXIDE 28.9 mmol/L (21.0-32.0); CHLORIDE - SERUM 102 mmol/L (98-107); CREATININE - SERUM 0.6 mg/dL (0.6-1.3); GLUCOSE 122 mg/dL (74-106); POTASSIUM - SERUM 3.7 mmol/L (3.5-5.1); SODIUM 136 mmol/L (136-145); UREA NITROGEN 11 mg/dL (7-18); VANCOMYCIN - TROUGH 15.8 ug/mL (10.0-20.0); eGFR NON AFRICAN AMERICAN > 90 mL/min (90-120)
--- NOTE | 2019-05-27 07:15 | NUR ---
ALERT AND ORIENTED, RESTING IN BED TALKING ON PHONE. UP WITH WALKER. NO C/O PAIN. NO S/S OF ACUTE DISTRESS NOTED. SCDS. POD #1 RIGHT HIP REVISION WITH PLACEMENT OF PROVENA WOUND VAC. RIGHT EXTERNAL JUGULAR, NS INFUSING @ 75ML/HR. SITE PATENT WITHOUT REDNESS OR SWELLING. PATIENT DENIES ANY NEEDS AT THIS TIME. CALL LIGHT IN REACH. WILL CONTINUE TO MONITOR.
[2019-05-27 09:21] VITALS: BP 132/72
--- NOTE | 2019-05-27 11:31 | NUR ---
I have reviewed this patient and I concur with the Shift Assessment completed by the Licensed Practical Nurse today this shift.
[2019-05-27] MEDS ORDERED: HYDROCODON-ACE1 EA10 PO (12:12)
[2019-05-27 12:40] VITALS: BP 110/61
--- NOTE | 2019-05-27 12:52 | MORECARE ---
CASE MANAGEMENT DISCHARGE SUMMARY PATIENT: RAMIRO GORDON UNIT: [id number] ADM DATE: 05/20/19 AGE: 54 : 63 SEX: M ROOM/BED: D.2234 AUTHOR: ARINA,DOC PHYSICIAN: REFERRING PHYSICIAN: JING CANNON MD DATE OF SERVICE: 05/27/19 Discharge Plan Patient Name: RAMIRO GORDON Facility: [facility]:[place] : 1965 Planned Disposition: Home with Home Health Anticipated Discharge Date: Discharge Date: Expected LOS: Initial Reviewer: [email or web address] Initial Review Date: 05/22/2019 Generated: 05/27/19 1:52 pm Comments DCP- Discharge Planning Updated by [email or web address]: Joaquina Ford on 05/27/19 11:[address] Moy Hernadez states they are ok with discharge today to [facility]. I spoke with Hola, she will speak with Dr. Meyer about antibiotic coverage. I informed her that he has been approved to go to [facility] SNF. I spoke with Malou at [facility] and they can pick him up at 1700 tonight. I called patient's mom per his request and informed her that he would be picked up by [facility] at 1700. He will be discharged to a skilled bed. DCP- Discharge Planning Updated by [email or web address]: Joaquina Ford on 05/26/19 1:[address] Barbara from [facility] states they will accept patient to skilled facility when ready for discharge. I sent a message to Torri Farias and informed patient. CM will continue to follow and assist with discharge planning/needs. DCP- Discharge Planning Updated by [email or web address]: Joaquina Logan on 05/26/19 12:[address] [facility] has [facility] admission because of history of methamphetamine use and leaving AMA from inpatient rehab. I informed the patient. He states he left AMA because "I got into it with someone." He states methamphetamine use was years ago. He would like a referral to [facility]. I called shellie Ramirez for [facility], and clinical faxed. CM will continue to follow and assist with discharge planning/needs. DCP- Discharge Planning Updated by [email or web address]: Joaquina Ford on 05/26/19 10:[address] Patient Name: RAMIRO GORDON Admission Status: Elective Accout number: [id number] Admission Date: 05-20-2019 : 1965 Admission Diagnosis: Attending: JING CANNON Current LOS: 6 Anticipated DC Date: Planned Disposition: Home with Home Health Primary Insurance: MEDICARE A & B Discharge Planning Comments: CM met with patient about IV antibiotics at home vs SNF. He would like to go to [facility]. His mother lives near [facility]. I spoke with Dede at [facility] and clinical faxed. I spoke with Laura with vascular access and informed her of 6 weeks of IV antibiotics per Dr. Cannon. CM will continue to follow and assist with discharge planning/needs. Coverage Analyst: Joaquina Ford DCP- Discharge Planning Updated by [email or web address]: Joaquina Ford on 05/22/19 2:[address] Patient Name: RAMIRO GORDON Admission Status: Elective Accout number: [id number] Admission Date: 05-20-2019 : 1965 Admission Diagnosis: Attending: JING CANNON Current LOS: 2 Anticipated DC Date: Planned Disposition: Home with Home Health Primary Insurance: MEDICARE A & B Discharge Planning Comments: CM met with patient to complete initial dc planning assessment. CM educated patient on the CM role and verbal consent given by patient to complete assessment. Patient lives at home with his brother. At discharge patient plans to return and feels this is a safe discharge. CM discussed availability of home health, rehab services, and medical equipment. Patient states he will need a walker and home health for PT. I called Moy Hernadez with Dr. Cannon and he states ok to order home health for when he is discharged. I called Reinaldo with [facility] and clinical faxed. I called Stephanie with [facility] and they will deliver walker today. CM will continue to follow and will assist as needed with dc plans/needs. Coverage Analyst: Joaquina Ford DCPIA - Discharge Planning Initial Assessment Updated by [email or web address]: Joaquina Ford on 05/22/19 3:41 pm * Is the patient Alert and Oriented? Yes * How many steps to enter\\exit or inside your home? 0/0 * PCP None ?Dr. Fleming? * Pharmacy [facility] on [address] * Preadmission Environment Home with Family * ADLs Partial Dependent * Partial ADLs (Assistance needed) Ambulation * Equipment Crutch * List name and contact numbers for known caregivers / representatives who currently or will assist patient after discharge: Thalia pérez - [phone] * Verbal permission to speak to the caregivers and representatives has been obtained from the patient. Yes * Community resources currently utilized None * Please name any agencies selected above. Thalia pérez - [phone] * Additional services required to return to the preadmission environment? Yes * Can the patient safely return to the preadmission environment? Yes * Has this patient been hospitalized within the prior 30 days at any hospital? Yes Coverage Notice Reviewer: [id number] Breanne Ford Notice Issued Date-Time: 05/22/2019 15:46 Notice Type: Patient Choice Letter Notice Delivered To: Patient Relationship to Patient: Self Solar System Designer Name: Delivery Method: HAND - Hand Delivered Argenis Days: Prior Verbal Notification: Recipient Understood Notice: Yes Recipient Signature: Yes Med Rec Note Co-signed by Attending: Coverage Notice Comment: ALEX for 1. [facility] Reviewer: [id number] Ford Notice Issued Date-Time: 05/26/2019 10:00 Notice Type: IM Discharge Notice Notice Delivered To: Patient Relationship to Patient: Self Solar System Designer Name: Delivery Method: HAND - Hand Delivered Argenis Days: Prior Verbal Notification: Recipient Understood Notice: Yes Recipient Signature: Yes Med Rec Note Co-signed by Attending: Coverage Notice Comment: IMM explained, signed, given, copy placed in MR Reviewer: [id number] Ford Notice Issued Date-Time: 05/26/2019 10:00 Notice Type: Patient Choice Letter Notice Delivered To: Patient Relationship to Patient: Self Solar System Designer Name: Delivery Method: HAND - Hand Delivered Argenis Days: Prior Verbal Notification: Recipient Understood Notice: Yes Recipient Signature: Yes Med Rec Note Co-signed by Attending: Coverage Notice Comment: ALEX for [facility] OR [facility] DP export: 05/26/19 1:18 Patient Name: RAMIRO GORDON Page [id number] at 1252 All edits/amendments must be made on the electronic document DICTATION DATE: 05/27/19 125 SPREADER BOX OPERATOR: VIKTORIYA 05/27/19 125 RPT#: [id number] DC DATE: STATUS: ADM IN [facility] [address] [place] [address] END OF REPORT
[2019-05-27] MEDS ORDERED: VANCOMYCIN H1 G/VIA1 IV (13:12)
[2019-05-27] MEDS ORDERED: ZOSYN 3.3753.375 G1 IV (13:12)
[2019-05-27] MEDS ORDERED: MIRALAX17 GM PO (13:13)
--- NOTE | 2019-05-27 14:24 | MORECARE ---
CASE MANAGEMENT DISCHARGE SUMMARY PATIENT: RAMIRO GORDON UNIT: [id number] ADM DATE: 05/20/19 AGE: 54 : 63 SEX: M ROOM/BED: D.2234 AUTHOR: EVONNE SANTA PHYSICIAN: REFERRING PHYSICIAN: JING CANNON MD DATE OF SERVICE: 05/27/19 Discharge Plan Patient Name: RAMIRO GORDON Facility: [facility]:[place] : 1965 Planned Disposition: Home with Home Health Anticipated Discharge Date: Discharge Date: Expected LOS: Initial Reviewer: [email or web address] Initial Review Date: 05/22/2019 Generated: 05/27/19 3:24 pm Comments DCP- Discharge Planning Updated by [id number]: Joaquina Ford on 05/27/19 1:[address] Received discharge orders. I called [facility] and spoke with Radha. She states that they can accept the patient with IV Zosyn and Vancomycin as ordered and their doctor and pharmacist will follow. Clinical/DC orders and MAR faxed. CM will continue to follow and assist with discharge planning/needs. DCP- Discharge Planning Updated by [id number]: Joaquina Ford on 05/27/19 11:[address] Moy Hernadez states they are ok with discharge today to [facility]. I spoke with Hola, she will speak with Dr. Meyer about antibiotic coverage. I informed her that he has been approved to go to [facility] SNF. I spoke with Malou at [facility] and they can pick him up at 1700 tonight. I called patient's mom per his request and informed her that he would be picked up by [facility] at 1700. He will be discharged to a skilled bed. DCP- Discharge Planning Updated by [id number]: Joaquina Ford on 05/26/19 1:[address] Barbara from [facility] states they will accept patient to skilled facility when ready for discharge. I sent a message to Torri Farias and informed patient. CM will continue to follow and assist with discharge planning/needs. 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 I informed the patient. He states he left AMA because "I got into it with someone." He states methamphetamine use was years ago. He would like a referral to [facility]. I called shellie Ramirez for [facility], and clinical faxed. CM will continue to follow and assist with discharge planning/needs. DCP- Discharge Planning Updated by [email or web address]: Joaquina Ford on 05/26/19 10:[address] Patient Name: RAMIRO GORDON Admission Status: Elective Accout number: [id number] Admission Date: 05-20-2019 : 1965 Admission Diagnosis: Attending: JING CANNON Current LOS: 6 Anticipated DC Date: Planned Disposition: Home with Home Health Primary Insurance: MEDICARE A & B Discharge Planning Comments: CM met with patient about IV antibiotics at home vs SNF. He would like to go to [facility]. His mother lives near [facility]. I spoke with Dede at [facility] and clinical faxed. I spoke with Laura with vascular access and informed her of 6 weeks of IV antibiotics per Dr. Cannon. CM will continue to follow and assist with discharge planning/needs. Judicial Law Clerk: Joaquina Ford DCP- Discharge Planning Updated by [id number]: Joaquina Ford on 05/22/19 2:[address] Patient Name: RAMIRO GORDON Admission Status: Elective Accout number: [id number] Admission Date: 05-20-2019 : 1965 Admission Diagnosis: Attending: JING CANNON Current LOS: 2 Anticipated DC Date: Planned Disposition: Home with Home Health Primary Insurance: MEDICARE A & B Discharge Planning Comments: CM met with patient to complete initial dc planning assessment. CM educated patient on the CM role and verbal consent given by patient to complete assessment. Patient lives at home with his brother. At discharge patient plans to return and feels this is a safe discharge. CM discussed availability of home health, rehab services, and medical equipment. Patient states he will need a walker and home health for PT. I called Moy Hernadez with Dr. Cannon and he states ok to order home health for when he is discharged. I called Reinaldo with [facility] and clinical faxed. I called Stephanie with [facility] and they will deliver walker today. CM will continue to follow and will assist as needed with dc plans/needs. Judicial Law Clerk: Joaquina Ford DCPIA - Discharge Planning Initial Assessment Updated by [email or web address]: Joaquina Ford on 05/22/19 3:41 pm * Is the patient Alert and Oriented? Yes * How many steps to enter\\exit or inside your home? 0/0 * PCP None ?Dr. Fleming? * Pharmacy [facility] on [address] * Preadmission Environment Home with Family * ADLs Partial Dependent * Partial ADLs (Assistance needed) Ambulation * Equipment Crutch * List name and contact numbers for known caregivers / representatives who currently or will assist patient after discharge: Thalia pérez [phone] * Verbal permission to speak to the caregivers and representatives has been obtained from the patient. Yes * Community resources currently utilized None * Please name any agencies selected above. Thalia pérez - [phone] * Additional services required to return to the preadmission environment? Yes * Can the patient safely return to the preadmission environment? Yes * Has this patient been hospitalized within the prior 30 days at any hospital? Yes Coverage Notice Reviewer: [id number] Breanne Ford Notice Issued Date-Time: 05/22/2019 15:46 Notice Type: Patient Choice Letter Notice Delivered To: Patient Relationship to Patient: Self Angledozer Operator Name: Delivery Method: HAND - Hand Delivered Argenis Days: Prior Verbal Notification: Recipient Understood Notice: Yes Recipient Signature: Yes Med Rec Note Co-signed by Attending: Coverage Notice Comment: [facility] for 1. [facility] 2. [facility] Reviewer: [id number] Breanne Ford Notice Issued Date-Time: 05/26/2019 10:00 Notice Type: IM Discharge Notice Notice Delivered To: Patient Relationship to Patient: Self Angledozer Operator Name: Delivery Method: HAND - Hand Delivered Argenis Days: Prior Verbal Notification: Recipient Understood Notice: Yes Recipient Signature: Yes Med Rec Note Co-signed by Attending: Coverage Notice Comment: IMM explained, signed, given, copy placed in MR Reviewer: [id number] Breanne Ford Notice Issued Date-Time: 05/26/2019 10:00 Notice Type: Patient Choice Letter Notice Delivered To: Patient Relationship to Patient: Self Angledozer Operator Name: Delivery Method: HAND - Hand Delivered Argenis Days: Prior Verbal Notification: Recipient Understood Notice: Yes Recipient Signature: Yes Med Rec Note Co-signed by Attending: Coverage Notice Comment: [facility] for [facility] Steve Posey Last DP export: 05/27/19 11:52 Patient Name: RAMIRO GORDON Page [id number] at 1424 All edits/amendments must be made on the electronic document DICTATION DATE: 05/27/191423 SHOW OPERATIONS SUPERVISOR: [email or web address] 05/27/191423 RPT#: [id number] DC DATE: STATUS: ADM IN [facility] [address] [place] [address] END OF REPORT
--- NOTE | 2019-05-27 16:48 | NUR ---
DISCHARGED PATIENT TO [facility], VIA WHEELCHAIR ACCOMPANIED BY FACILITY STAFF. DISCONTINUED EJ TO RIGHT NECK, CATHETER TIP INTACT. WENT OVER DISCHARGE INSTRUCTIONS WITH PATIENT, VERBALIZED UNDERSTANDING. PATIENT DENIES ANYTHING FURTHER.
--- NOTE | 2019-05-29 10:07 | MORECARE ---
CASE MANAGEMENT DISCHARGE SUMMARY PATIENT: RAMIRO GORDON UNIT: [id number] ADM DATE: 05/20/19 AGE: 54 : 63 SEX: M ROOM/BED: D.2234 AUTHOR: EVONNE SANTA PHYSICIAN: REFERRING PHYSICIAN: JING CANNON MD DATE OF SERVICE: 05/29/19 Discharge Plan Patient Name: RAMIRO GORDON Facility: [facility]:[place] : 1965 Planned Disposition: Home with Home Health Anticipated Discharge Date: Discharge Date: 05/27/2019 Expected LOS: Initial Reviewer: [email or web address] Initial Review Date: 05/22/2019 Generated: 05/29/19 11:06 am Comments DCP- Discharge Planning Updated by [email or web address]: Joaquina Ford on 05/27/19 1:[address] Received discharge orders. I called [facility] and spoke with Radha. She states that they can accept the patient with IV Zosyn and Vancomycin as ordered and their doctor and pharmacist will follow. Clinical/DC orders and MAR faxed. CM will continue to follow and assist with discharge planning/needs. DCP- Discharge Planning Updated by [email or web address]: Joaquina Ford on 05/27/19 11:[address] Moy Hernadez states they are ok with discharge today to [facility]. I spoke with Hola, she will speak with Dr. Meyer about antibiotic coverage. I informed her that he has been approved to go to [facility] SNF. I spoke with Malou at [facility] and they can pick him up at 1700 tonight. I called patient's mom per his request and informed her that he would be picked up by [facility] at 1700. He will be discharged to a skilled bed. DCP- Discharge Planning Updated by [id number]: Joaquina Ford on 05/26/19 1:[address] Barbara from [facility] states they will accept patient to skilled facility when ready for discharge. I sent a message to Torri Farias and informed patient. CM will continue to follow and assist with discharge planning/needs. 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 I informed the patient. He states he left AMA because "I got into it with someone." He states methamphetamine use was years ago. He would like a referral to [facility]. I called shellie Ramirez for [facility], and clinical faxed. CM will continue to follow and assist with discharge planning/needs. DCP- Discharge Planning Updated by [email or web address]: Joaquina Ford on 05/26/19 10:[address] Patient Name: RAMIRO GORDON Admission Status: Elective Accout number: [id number] Admission Date: 05-20-2019 : 1965 Admission Diagnosis: Attending: JING CANNON Current LOS: 6 Anticipated DC Date: Planned Disposition: Home with Home Health Primary Insurance: MEDICARE A & B Discharge Planning Comments: CM met with patient about IV antibiotics at home vs SNF. He would like to go to [facility]. His mother lives near [facility]. I spoke with Dede at [facility] and clinical faxed. I spoke with Laura with vascular access and informed her of 6 weeks of IV antibiotics per Dr. Cannon. CM will continue to follow and assist with discharge planning/needs. Maintenance Of Way Clerk: Joaquina Ford DCP- Discharge Planning Updated by [id number]: Joaquina Olivaresmellisa on 05/22/19 2:[address] Patient Name: RAMIRO GORDON Admission Status: Elective Accout number: [id number] Admission Date: 05-20-2019 : 1965 Admission Diagnosis: Attending: JING CANNON Current LOS: 2 Anticipated DC Date: Planned Disposition: Home with Home Health Primary Insurance: MEDICARE A & B Discharge Planning Comments: CM met with patient to complete initial dc planning assessment. CM educated patient on the CM role and verbal consent given by patient to complete assessment. Patient lives at home with his brother. At discharge patient plans to return and feels this is a safe discharge. CM discussed availability of home health, rehab services, and medical equipment. Patient states he will need a walker and home health for PT. I called Moy Hernadez with Dr. Cannon and he states ok to order home health for when he is discharged. I called Reinaldo with [facility] and clinical faxed. I called Stephanie with [facility] and they will deliver walker today. CM will continue to follow and will assist as needed with dc plans/needs. Maintenance Of Way Clerk: Joaquina Ford DCPIA - Discharge Planning Initial Assessment Updated by [id number]: Joaquina Ford on 05/22/19 3:41 pm * Is the patient Alert and Oriented? Yes * How many steps to enter\\exit or inside your home? 0/0 * PCP None ?Dr. Fleming? * Pharmacy [facility] on [address] * Preadmission Environment Home with Family * ADLs Partial Dependent * Partial ADLs (Assistance needed) Ambulation * Equipment Crutch * List name and contact numbers for known caregivers / representatives who currently or will assist patient after discharge: Thalia pérez [phone] * Verbal permission to speak to the caregivers and representatives has been obtained from the patient. Yes * Community resources currently utilized None * Please name any agencies selected above. Thalia pérez [phone] * Additional services required to return to the preadmission environment? Yes * Can the patient safely return to the preadmission environment? Yes * Has this patient been hospitalized within the prior 30 days at any hospital? Yes Coverage Notice Reviewer: [id number] Breanne Ford Notice Issued Date-Time: 05/22/2019 15:46 Notice Type: Patient Choice Letter Notice Delivered To: Patient Relationship to Patient: Self Abstract Searcher Name: Delivery Method: HAND - Hand Delivered Argenis Days: Prior Verbal Notification: Recipient Understood Notice: Yes Recipient Signature: Yes Med Rec Note Co-signed by Attending: Coverage Notice Comment: [facility] for 1. [facility]. [facility] Reviewer: [id number] Breanne Ford Notice Issued Date-Time: 05/26/2019 10:00 Notice Type: IM Discharge Notice Notice Delivered To: Patient Relationship to Patient: Self Abstract Searcher Name: Delivery Method: HAND - Hand Delivered Argenis Days: Prior Verbal Notification: Recipient Understood Notice: Yes Recipient Signature: Yes Med Rec Note Co-signed by Attending: Coverage Notice Comment: IMM explained, signed, given, copy placed in MR Reviewer: [id number] Breanne Ford Notice Issued Date-Time: 05/26/2019 10:00 Notice Type: Patient Choice Letter Notice Delivered To: Patient Relationship to Patient: Self Abstract Searcher Name: Delivery Method: HAND - Hand Delivered Argenis Days: Prior Verbal Notification: Recipient Understood Notice: Yes Recipient Signature: Yes Med Rec Note Co-signed by Attending: Coverage Notice Comment: ALEX for Gene Yeager OR Steve Posey Last DP export: 05/27/19 1:24 Patient Name: RAMIRO GORDON Page [phone] at 1007 All edits/amendments must be made on the electronic document DICTATION DATE: 05/29/19 100 SURVEILLANCE OPERATOR: DM 05/29/191005 RPT#: [id number] DC DATE:05/27/19 STATUS: DIS IN [facility] [address] [place] [address] END OF REPORT
--- NOTE | 2019-05-29 16:02 | MORECARE ---
CASE MANAGEMENT DISCHARGE SUMMARY PATIENT: RAMIRO GORDON UNIT: [id number] ADM DATE: 05/20/19 AGE: 54 : 63 SEX: M ROOM/BED: D.2234 AUTHOR: EVONNE SANTA PHYSICIAN: REFERRING PHYSICIAN: JING CANNON MD DATE OF SERVICE: 05/29/19 Discharge Plan Patient Name: RAMIRO GORDON Facility: [facility]:[place] : 1965 Planned Disposition: Home with Home Health Anticipated Discharge Date: Discharge Date: 05/27/2019 Expected LOS: Initial Reviewer: [email or web address] Initial Review Date: 05/22/2019 Generated: 05/29/19 5:01 pm Comments DCP- Discharge Planning Updated by [id number]: Joaquina Ford on 05/27/19 1:[address] Received discharge orders. I called [facility] and spoke with Radha. She states that they can accept the patient with IV Zosyn and Vancomycin as ordered and their doctor and pharmacist will follow. Clinical/DC orders and MAR faxed. CM will continue to follow and assist with discharge planning/needs. DCP- Discharge Planning Updated by [id number]: Joaquina Ford on 05/27/19 11:[address] Moy Hernadez states they are ok with discharge today to [facility]. I spoke with Hola, she will speak with Dr. Meyer about antibiotic coverage. I informed her that he has been approved to go to [facility] SNF. I spoke with Malou at [facility] and they can pick him up at 1700 tonight. I called patient's mom per his request and informed her that he would be picked up by [facility] at 1700. He will be discharged to a skilled bed. DCP- Discharge Planning Updated by [id number]: Joaquina Ford on 05/26/19 1:[address] Barbara from [facility] states they will accept patient to skilled facility when ready for discharge. I sent a message to Torri Farias and informed patient. CM will continue to follow and assist with discharge planning/needs. 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 I informed the patient. He states he left AMA because "I got into it with someone." He states methamphetamine use was years ago. He would like a referral to [facility]. I called shellie Ramirez for [facility], and clinical faxed. CM will continue to follow and assist with discharge planning/needs. DCP- Discharge Planning Updated by [id number]: Joaquina Ford on 05/26/19 10:[address] Patient Name: RAMIRO GORDON Admission Status: Elective Accout number: [id number] Admission Date: 05-20-2019 : 1965 Admission Diagnosis: Attending: JING CANNON Current LOS: 6 Anticipated DC Date: Planned Disposition: Home with Home Health Primary Insurance: MEDICARE A & B Discharge Planning Comments: CM met with patient about IV antibiotics at home vs SNF. He would like to go to [facility]. His mother lives near [facility]. I spoke with Dede at [facility] and clinical faxed. I spoke with Laura with vascular access and informed her of 6 weeks of IV antibiotics per Dr. Cannon. CM will continue to follow and assist with discharge planning/needs. Manager Grocery: Joaquina Ford DCP- Discharge Planning Updated by [email or web address]: Joaquina Olivaresmellisa on 05/22/19 2:[address] Patient Name: RAMIRO GORDON Admission Status: Elective Accout number: [id number] Admission Date: 05-20-2019 : 1965 Admission Diagnosis: Attending: JING CANNON Current LOS: 2 Anticipated DC Date: Planned Disposition: Home with Home Health Primary Insurance: MEDICARE A & B Discharge Planning Comments: CM met with patient to complete initial dc planning assessment. CM educated patient on the CM role and verbal consent given by patient to complete assessment. Patient lives at home with his brother. At discharge patient plans to return and feels this is a safe discharge. CM discussed availability of home health, rehab services, and medical equipment. Patient states he will need a walker and home health for PT. I called Moy Hernadez with Dr. Cannon and he states ok to order home health for when he is discharged. I called Reinaldo with [facility] and clinical faxed. I called Stephanie with [facility] and they will deliver walker today. CM will continue to follow and will assist as needed with dc plans/needs. Manager Grocery: Joaqiuna Ford DCPIA - Discharge Planning Initial Assessment Updated by [id number]: Joaquina Ford on 05/22/19 3:41 pm * Is the patient Alert and Oriented? Yes * How many steps to enter\\exit or inside your home? 0/0 * PCP None ?Dr. Fleming? * Pharmacy [facility] on [address] * Preadmission Environment Home with Family * ADLs Partial Dependent * Partial ADLs (Assistance needed) Ambulation * Equipment Crutch * List name and contact numbers for known caregivers / representatives who currently or will assist patient after discharge: Thalia pérez [phone] * Verbal permission to speak to the caregivers and representatives has been obtained from the patient. Yes * Community resources currently utilized None * Please name any agencies selected above. Thalia pérez [phone] * Additional services required to return to the preadmission environment? Yes * Can the patient safely return to the preadmission environment? Yes * Has this patient been hospitalized within the prior 30 days at any hospital? Yes Coverage Notice Reviewer: [id number] Breanne Ford Notice Issued Date-Time: 05/22/2019 15:46 Notice Type: Patient Choice Letter Notice Delivered To: Patient Relationship to Patient: Self Secretary Receptionist Name: Delivery Method: HAND - Hand Delivered Argenis Days: Prior Verbal Notification: Recipient Understood Notice: Yes Recipient Signature: Yes Med Rec Note Co-signed by Attending: Coverage Notice Comment: [facility] for 1. [facility] 2. [facility] Reviewer: [id number] Breanne Ford Notice Issued Date-Time: 05/26/2019 10:00 Notice Type: IM Discharge Notice Notice Delivered To: Patient Relationship to Patient: Self Secretary Receptionist Name: Delivery Method: HAND - Hand Delivered Argenis Days: Prior Verbal Notification: Recipient Understood Notice: Yes Recipient Signature: Yes Med Rec Note Co-signed by Attending: Coverage Notice Comment: IMM explained, signed, given, copy placed in MR Reviewer: [id number] Breanne Ford Notice Issued Date-Time: 05/26/2019 10:00 Notice Type: Patient Choice Letter Notice Delivered To: Patient Relationship to Patient: Self Secretary Receptionist Name: Delivery Method: HAND - Hand Delivered Argenis Days: Prior Verbal Notification: Recipient Understood Notice: Yes Recipient Signature: Yes Med Rec Note Co-signed by Attending: Coverage Notice Comment: ALEX for Gene Yeager OR Steve Posey Last DP export: 05/29/19 9:07 Patient Name: RAMIRO GORDON Page [phone] at 1602 All edits/amendments must be made on the electronic document DICTATION DATE: 05/29/191600 PATROLLER: DM 05/29/191600 RPT#: [id number] DC DATE:05/27/19 STATUS: DIS IN [facility] [address] [place] [address] END OF REPORT
== END 2019-05-27 16:49 | DRG 467 ==
LOC: D.OPS 09:25 → D.PAN 11:45 → D.OPS 11:45 → D.MS 19:07
PROVIDERS: Internal Medicine Nephrology; Nurse Practitioner Family; ADMIT Orthopaedic Surgery; ATTEND Orthopaedic Surgery
PROC: 0SPR0JZ Removal of Synthetic Substitute from Right Hip Joint, Femoral Surface, Open Approach (ICD-10-PCS; 2019-05-20)
PROC: 0SP909Z Removal of Liner from Right Hip Joint, Open Approach (ICD-10-PCS; 2019-05-20)
PROC: 0SUA09Z Supplement Right Hip Joint, Acetabular Surface with Liner, Open Approach (ICD-10-PCS; 2019-05-20)
PROC: 0S990ZZ Drainage of Right Hip Joint, Open Approach (ICD-10-PCS; 2019-05-20)
PROC: 3E0U029 Introduction of Other Anti-infective into Joints, Open Approach (ICD-10-PCS; 2019-05-20)
PROC: 0SRR0JZ Replacement of Right Hip Joint, Femoral Surface with Synthetic Substitute, Open Approach (ICD-10-PCS; principal; 2019-05-20 11:45)
PROC: 05HC33Z Insertion of Infusion Device into Left Basilic Vein, Percutaneous Approach (ICD-10-PCS; 2019-05-27)
PROC: B54NZZA Ultrasonography of Left Upper Extremity Veins, Guidance (ICD-10-PCS; 2019-05-27)
DX: T84.51XA Infection and inflammatory reaction due to internal right hip prosthesis, initial encounter (principal); M96.840 Postprocedural hematoma of a musculoskeletal structure following a musculoskeletal system procedure; Y83.9 Surgical procedure, unspecified as the cause of abnormal reaction of the patient, or of later complication, without mention of misadventure at the time of the procedure; M16.12 Unilateral primary osteoarthritis, left hip

== ENCOUNTER 2019-06-03 13:21 | Inpatient (IN) | payer MEDICARE ==
[~2019-06-03] VITALS: Ht 175.3 cm; Wt 72.7 kg
[~2019-06-03 13:21] MED LIST changes: +MIRALAX17 GM PO; +VANCOMYCIN H1 G/VIA1 IV; +ZOSYN 3.3753.375 G1 IV
[2019-06-03 14:37] LABS: BASOPHILS 0.4 % (0-2); EOSINOPHILS 2.7 % (0-7); HEMATOCRIT 31.3 % (42.0-54.0); HEMOGLOBIN 9.9 g/dL (13.5-17.5); IMMATURE GRANULOCYTES 0.2 % (0-5); LYMPHOCYTES 28.4 % (15-50); MCH 29.4 pg (26.0-34.0); MCHC 31.6 g/dL (31.0-37.0); MCV 92.9 fL (80.0-100.0); MEAN PLATELET VOLUME 8.6 fL (7.4-10.4); NEUTROPHILS 57.3 % (40-80); RBC 3.37 10x6/uL (4.20-6.10); RDW 15.1 % (11.5-14.5); WBC 5.5 10x3/uL (4.8-10.8)
[2019-06-03 14:38] LABS: PLATELET COUNT 286 10x3/uL (130-400)
[2019-06-03 14:47] LABS: CALC OSMOLALITY 274 mosm/kg (275-300); CALCIUM 8.4 mg/dL (8.5-10.1); CARBON DIOXIDE 30.1 mmol/L (21.0-32.0); CHLORIDE - SERUM 102 mmol/L (98-107); CREATININE - SERUM 0.6 mg/dL (0.6-1.3); GLUCOSE 96 mg/dL (74-106); POTASSIUM - SERUM 4.1 mmol/L (3.5-5.1); SODIUM 138 mmol/L (136-145); UREA NITROGEN 11 mg/dL (7-18); eGFR NON AFRICAN AMERICAN > 90 mL/min (90-120)
[2019-06-03 14:53] LABS: ALBUMIN 3.4 g/dL (3.4-5.0); ALKALINE PHOSPHATASE 276 U/L (46-116); ALT (SGPT) 191 U/L (10-68); PROTEIN - SERUM 7.9 g/dL (6.4-8.2)
[2019-06-03 14:54] LABS: C-REACTIVE PROTEIN 0.2 mg/dL (0.0-0.9)
[2019-06-03 15:46] LABS: ERYTHROCYTE SEDIMENTATION RATE 8 mm/hr (0-20)
--- NOTE | 2019-06-03 16:06 | NUR ---
PT ARRIVED TO ED WITH MIDLINE TO THE RUE IN PLACE. ALSO ARRIVED WITH WOUND VAC IN PLACE. WOUND VAC REMOVED PER DR. STRAUSS. THIS NURSE INSTRUCTED TO REMOVE NEL AND SUTURES TO THE RT HIP, CLEANSE AREA, AND APPLY DRESSING. 19 NEL REMOVED AND 2 SUTURES REMOVED.
--- NOTE | 2019-06-03 16:27 | NUR ---
PT GIVEN REGULAR DIET DINNER TRAY PER ORDERS.
[2019-06-03 16:35] VITALS: BP 150/80
--- NOTE | 2019-06-03 17:00 | NUR ---
DRESSING CHANGE TO MIDLINE IN PT'S RUE. FAMILY AT BEDSIDE. PT AWARE HE IS BEING ADMITTED TO [facility]. AWAITING BED ASSIGNMENT. CALL LIGHT IN REACH. SIDE RAILS RAISED X2.
--- NOTE | 2019-06-03 17:30 | NUR ---
THIS NURSE TOLD BY REGISTRATION THAT PT HAD FALLEN AND WAS LYING IN THE FLOOR BESIDE HIS BED. THIS NURSE ENTED PT'S ROOM AND OBSERVED PT SITTING UPRIGHT ON THE FLOOT AT THE FOOT OF HIS BED. PT'S CRUTCHES LYING IN THE FLOOR BESIDE PT. PT STATES HE WAS GETTING OUT OF BED, WITH CRUTCHES AND HE FELL. PT THEN BEGAN CRYING AND LAYED OVER ONTO HIS LEFT SIDE AND THREW A CRUTCH BESIDE HIM. PT HAS NO OBVIOUS INJURIES NOTED. ED NURSE X2 ASSISTED PT OUT OF FLOOR AND BACK INTO BED. SIDE RAILS RAISED X2, CALL LIGHT IN REACH. PT ALERT AND ORIENTED, DENIES HITTING HIS HEAD, NO LOC. PT INSTRUCTED TO NOT ATTEMPT AMBULATING AGAIN WITHOUT FIRST CALLING FOR ASSISTANCE. PT LYING IN BED, CRYING, STATES HE IS UPSET THAT HE "WENT A WEEK WITHOUT FALLING AND NOW IT HAPPENED."
--- NOTE | 2019-06-03 17:47 | NUR ---
THIS RN NOTIFIED BY GARY MEJIA OF PT FALL. ELECTRICIAN POWERHOUSE NOTIFIED. DR. BRADY PIERRE, XR OF R HIP ORDERED POST FALL. PT DENIES INJURY, DENIES HITTING HEAD. PT EDUCATED ON NOT GETTING OUT OF BED WITHOUT A STAFF MEMBER BESIDE HIM TO GUARANTEE HIS SAFETY. ACCURATE UNDERSTANDING EXPRESSED. DRESSING TO R HIP REMAINS IN PLACE, CLEAN AND DRY. PT DENIES PAIN WITH PALPATION TO R HIP. NO OBVIOUS DEFORMITY NOTED.
--- NOTE | 2019-06-03 17:54 | NUR ---
ROOM 2216 ASSIGNED AT 1705. ATTEMPTED TO CALL REPORT AT 1712, TOLD ASSIGNED BED WAS DIRTY. REPORT CALLED TO RECEIVING NURSE, BARRON, AT 1748.
--- NOTE | 2019-06-03 18:00 | NUR ---
DR. ABREU RETURNS CALL. NOTIFIED OF PT FALL. HE REQUESTS PHONE CALL IF XR SHOWS ANY NEW TRAUMA.
--- NOTE | 2019-06-03 18:19 | NUR ---
RECEIVED PT FROM ER, PT TRANSFERRED TO BED WITH NO PROBLEMS, RETRIEVED FAN FOR PT NO OTHER NEEDS VOICED, BED IN LOW POSITION, CL IN REACH CONTINUE WITH PLAN OF CARE
[2019-06-03 19:00] VITALS: BP 130/75
--- NOTE | 2019-06-03 19:23 | NUR ---
PT REQUESTING TO BE UNHOOKED SO HE CAN GO OUTSIDE, ADVISED HIM THAT IS NOT TO GO OUTSIDE AT THIS TIME ESPECIALLY WITH PAIN PUMP, PT REQUESTED NICOTIENE PATCH INSTEAD THEN. STATES HE SMOKES 3 PACKS A DAY, ADVISED PT WILL PAGE ONCALL DOC FOR ORDER. CONTINUE WITH PLAN OF CARE
--- NOTE | 2019-06-03 19:30 | NUR ---
BARRON HUITRON NOTIFIED OF PT FALL AT THIS TIME. BARRON IS PT MOTHER.
[2019-06-04] MEDS ORDERED: HYDROCODON-ACE1 EA10 PO (00:14)
--- NOTE | 2019-06-04 00:21 | NUR ---
A&O X 4, REPORTS 10/10 PAIN TO RIGHT HIP. REQUESTS PAIN MEDICATION. STATES HE WENT TO [facility] FIRST, BUT THEY WOULD NOT GIVE PAIN MEDICATION. STATES HE RAN OUT OF HIS [place]CO LAST NIGHT. DENIES NEEDS AT THIS TIME, WILL CONTINUE TO MONITOR.
[2019-06-04 01:10] VITALS: BP 136/75; BP 150/80
[2019-06-04 03:22] VITALS: Ht 175.3 cm; Wt 72.7 kg
[2019-06-04 06:33] LABS: BASOPHILS 0.5 % (0-2); EOSINOPHILS 4.8 % (0-7); HEMOGLOBIN 9.3 g/dL (13.5-17.5); IMMATURE GRANULOCYTES 0.5 % (0-5); LYMPHOCYTES 26.7 % (15-50); MCH 29.1 pg (26.0-34.0); MCV 93.8 fL (80.0-100.0); MEAN PLATELET VOLUME 8.9 fL (7.4-10.4); MONOCYTES 15.6 % (2-11); NEUTROPHILS 51.9 % (40-80); PLATELET COUNT 275 10x3/uL (130-400); RDW 15.2 % (11.5-14.5)
[2019-06-04 07:03] LABS: CALC OSMOLALITY 278 mosm/kg (275-300); CALCIUM 8.4 mg/dL (8.5-10.1); CARBON DIOXIDE 28.7 mmol/L (21.0-32.0); CHLORIDE - SERUM 105 mmol/L (98-107); CREATININE - SERUM 0.6 mg/dL (0.6-1.3); GLUCOSE 109 mg/dL (74-106); POTASSIUM - SERUM 3.7 mmol/L (3.5-5.1); SODIUM 140 mmol/L (136-145); UREA NITROGEN 11 mg/dL (7-18); eGFR NON AFRICAN AMERICAN > 90 mL/min (90-120)
--- NOTE | 2019-06-04 07:36 | NUR ---
PT RESTING IN BED. NO SIGNS OF DISTRESS. IV TO RIGHT UPPER ARM PICC PATENT NO REDNESS OR TENDERNESS. DENIES ANY FURTHER NEED AT THIS TIME. CALL LIGHT IN REACH. BED LOW POSITION. NO FAMILY AT BEDSIDE AT THIS TIME.
--- NOTE | 2019-06-04 08:00 | NUR ---
LYING IN BED,WITHOUT NEEDS.CALL LIGHT IN REACH
[2019-06-04 08:08] VITALS: BP 105/69
[2019-06-04 11:20] VITALS: BP 131/79
--- NOTE | 2019-06-04 15:30 | NUR ---
CONTACTED PHARMACY ABOUT VANC TROUGH BEING LOW AND THAT VANC NEEDED TO BE ADJUSTED. PHARMACY ACKNOWLEDGED AND STATED THEY WOULD ADJUST THE VANC DOSAGE.
[2019-06-04 16:29] VITALS: BP 117/56
--- NOTE | 2019-06-04 18:40 | NUR ---
ALERT AND ORIENTED, RESTING IN BED. NO C/O PAIN. NO S/S OF ACUTE DISTRESS NOTED. DENIES ANY NEEDS AT THIS TIME. CALL LIGHT IN REACH. WILL CONTINUE TO MONITOR.
[2019-06-04 19:00] VITALS: BP 120/65
--- NOTE | 2019-06-04 19:45 | NUR ---
A&0 X 4, REPORTS PAIN OF 10/10 TO RIGHT HIP. UP TO BATHROOM WITH WALKER, STANDBY ASSIST. REPORTS HAVING FORMED BM. REQUESTS PAIN MEDICATION. DENIES FURTHER NEEDS
[2019-06-05] VITALS: BP 115/70
--- NOTE | 2019-06-05 03:47 | NUR ---
I have reviewed this patient and I concur with the Shift Assessment completed by the Licensed Practical Nurse today this shift.
[2019-06-05 04:00] VITALS: BP 118/74
[2019-06-05 05:43] LABS: BASOPHILS 0.9 % (0-2); EOSINOPHILS 4.8 % (0-7); HEMATOCRIT 30.2 % (42.0-54.0); HEMOGLOBIN 9.4 g/dL (13.5-17.5); IMMATURE GRANULOCYTES 0.2 % (0-5); LYMPHOCYTES 34.5 % (15-50); MCH 29.5 pg (26.0-34.0); MCHC 31.1 g/dL (31.0-37.0); MCV 94.7 fL (80.0-100.0); MEAN PLATELET VOLUME 8.8 fL (7.4-10.4); MONOCYTES 9.5 % (2-11); NEUTROPHILS 50.1 % (40-80); PLATELET COUNT 261 10x3/uL (130-400); RBC 3.19 10x6/uL (4.20-6.10); RDW 15.2 % (11.5-14.5); WBC 4.4 10x3/uL (4.8-10.8)
[2019-06-05 05:56] LABS: CALC OSMOLALITY 278 mosm/kg (275-300); CALCIUM 8.1 mg/dL (8.5-10.1); CARBON DIOXIDE 26.3 mmol/L (21.0-32.0); CHLORIDE - SERUM 105 mmol/L (98-107); CREATININE - SERUM 0.6 mg/dL (0.6-1.3); GLUCOSE 97 mg/dL (74-106); POTASSIUM - SERUM 4.2 mmol/L (3.5-5.1); SODIUM 139 mmol/L (136-145); eGFR NON AFRICAN AMERICAN > 90 mL/min (90-120)
[2019-06-05 05:57] LABS: UREA NITROGEN 15 mg/dL (7-18)
[2019-06-05 08:12] VITALS: BP 130/78
[2019-06-05] MEDS ORDERED: ASPIRIN325 MG PO (11:33)
[2019-06-05] MEDS ORDERED: NORCO-7.5 PO (11:35)
--- NOTE | 2019-06-05 12:35 | MORECARE ---
CASE MANAGEMENT DISCHARGE SUMMARY PATIENT: RAMIRO GORDON UNIT: [id number] ADM DATE: 06/03/19 AGE: 54 : 63 SEX: M ROOM/BED: D.2216 AUTHOR: EVONNE SANTA PHYSICIAN: REFERRING PHYSICIAN: JING ABREU MD DATE OF SERVICE: 06/05/19 Discharge Plan Patient Name: RAMIRO GORDON [facility] [facility] 1965 Planned Disposition: Home with Home Health Anticipated Discharge Date: Discharge Date: Expected LOS: Initial Reviewer: [email or web address] Initial Review Date: 06/03/2019 Generated: 06/05/19 1:35 pm Patient Name: RAMIRO GORDON Page [id number] at 1235 All edits/amendments must be made on the electronic document DICTATION DATE: 06/05/19 1235 BELT CUTTER: VIKTORIYA 06/05/19 1235 RPT#: [id number] DC DATE: STATUS: ADM IN [facility] [address] [place] [address] END OF REPORT
--- NOTE | 2019-06-05 12:45 | MORECARE ---
CASE MANAGEMENT DISCHARGE SUMMARY PATIENT: RAMIRO GORDON UNIT: [id number] ADM DATE: 06/03/19 AGE: 54 : 63 SEX: M ROOM/BED: D.2216 AUTHOR: EVONNE SANTA PHYSICIAN: REFERRING PHYSICIAN: JING ABREU MD DATE OF SERVICE: 06/05/19 Discharge Plan Patient Name: RAMIRO GORDON Facility: [facility]:[place] : 1965 Planned Disposition: Home with Home Health Anticipated Discharge Date: Discharge Date: Expected LOS: Initial Reviewer: [email or web address] Initial Review Date: 06/03/2019 Generated: 06/05/19 1:44 pm Comments DCP- Discharge Planning Updated by [email or web address]: Jessica Pryor on 06/05/19 11:[address] Patient Name: RAMIRO GORDON Admission Status: ER Accout number: [id number] Admission Date: 06-03-2019 : 1965 Admission Diagnosis: Attending: JING ABREU Current LOS: 2 Anticipated DC Date: Planned Disposition: Home with Home Health Primary Insurance: MEDICARE A & B Discharge Planning Comments: CM met with patient to complete initial dc planning assessment. CM educated patient on the CM role and verbal consent given by patient to complete assessment. Patient lives at home with his mother, but he thought he was going to stay with his brother at discharge. His brother's address is [address] [place] [address] [address]. At discharge patient plans to return home and feels this is a safe discharge. CM discussed availability of home health, rehab services, and medical equipment. He did not want to go back to [facility], He would like home health. He did not have a preference for home health. I have called his prescription of Zyvox into [facility] [address]. I spoke with Brian at [facility]. His peralta will be $3.40. Patient has a walker and crutches. Patient denied known discharge needs at this time. CM will continue to follow and will assist as needed with dc plans/needs. Appraisal Coordinator: Jessica Pryor DCPIA - Discharge Planning Initial Assessment Updated by [email or web address]: Jessica Pryor on 06/05/19 12:35 pm * Is the patient Alert and Oriented? Yes * How many steps to enter\exit or inside your home? NONE * PCP NONE * Pharmacy [facility] * Preadmission Environment Home with Family * ADLs Independent * Equipment Crutch Rolling Walker * List name and contact numbers for known caregivers / representatives who currently or will assist patient after discharge: BARRON HUITRON (MOTHER) [phone] * Verbal permission to speak to the caregivers and representatives has been obtained from the patient. N/A * Community resources currently utilized None * Additional services required to return to the preadmission environment? Yes * Can the patient safely return to the preadmission environment? Yes * Has this patient been hospitalized within the prior 30 days at any hospital? Yes Last DP export: 06/05/19 11:35 a Patient Name: RAMIRO GORDON Page 47533 at 1245 All edits/amendments must be made on the electronic document DICTATION DATE: 06/05/191243 E MAIL SYSTEM ADMINISTRATOR: VIKTORIYA 06/05/19 1244 RPT#: [id number] DC DATE: STATUS: ADM IN [facility] [address] [place] [address] END OF REPORT
--- NOTE | 2019-06-05 13:15 | MORECARE ---
CASE MANAGEMENT DISCHARGE SUMMARY PATIENT: RAMIRO GORDON UNIT: [id number] ADM DATE: 06/03/19 AGE: 54 : 63 SEX: M ROOM/BED: D.2216 AUTHOR: EVONNE SANTA PHYSICIAN: REFERRING PHYSICIAN: JING ABREU MD DATE OF SERVICE: 06/05/19 Discharge Plan Patient Name: RAMIRO GORDON Facility: [facility]:[place] : 1965 Planned Disposition: Home with Home Health Anticipated Discharge Date: Discharge Date: Expected LOS: Initial Reviewer: [email or web address] Initial Review Date: 06/03/2019 Generated: 06/05/19 2:15 pm Comments DCP- Discharge Planning Updated by [email or web address]: Jessica Pryor on 06/05/19 11:[address] Patient Name: RAMIRO GORDON Admission Status: ER Accout number: [id number] Admission Date: 06-03-2019 : 1965 Admission Diagnosis: Attending: JING ABREU Current LOS: 2 Anticipated DC Date: Planned Disposition: Home with Home Health Primary Insurance: MEDICARE A & B Discharge Planning Comments: CM met with patient to complete initial dc planning assessment. CM educated patient on the CM role and verbal consent given by patient to complete assessment. Patient lives at home with his mother, but he thought he was going to stay with his brother at discharge. His brother's address is [address] [place] [address] [address]. At discharge patient plans to return home and feels this is a safe discharge. CM discussed availability of home health, rehab services, and medical equipment. He did not want to go back to [facility], He would like home health. He did not have a preference for home health. I have called his prescription of Zyvox into [facility] [address]. I spoke with Brian at [facility]. His peralta will be $3.40. Patient has a walker and crutches. Patient denied known discharge needs at this time. CM will continue to follow and will assist as needed with dc plans/needs. Spot Welder: Jessica Pryor DCPIA - Discharge Planning Initial Assessment Updated by [email or web address]: Jessica Pryor on 06/05/19 12:35 pm * Is the patient Alert and Oriented? Yes * How many steps to enter\exit or inside your home? NONE * PCP NONE * Pharmacy [facility] * Preadmission Environment Home with Family * ADLs Independent * Equipment Crutch Rolling Walker * List name and contact numbers for known caregivers / representatives who currently or will assist patient after discharge: BARRON HUITRON (MOTHER) [phone] * Verbal permission to speak to the caregivers and representatives has been obtained from the patient. N/A * Community resources currently utilized None * Additional services required to return to the preadmission environment? Yes * Can the patient safely return to the preadmission environment? Yes * Has this patient been hospitalized within the prior 30 days at any hospital? Yes External Providers External Provider: [facility] Next Contact Date: Service Request Date: Service Type: Resolution: Reviewer: Comments: Last DP export: 06/05/19 11:45 a Patient Name: RAMIRO GORDON Page 98801 at 1315 All edits/amendments must be made on the electronic document DICTATION DATE: 06/05/19 1315 PHP PROGRAMMER: VIKTORIYA 06/05/19 1315 RPT#: [id number] DC DATE: STATUS: ADM IN [facility] [address] [place] [address] END OF REPORT
--- NOTE | 2019-06-05 14:22 | NUR ---
RIGHT UPPER ARM PICC LINE REMOVED INTACT. BIOPATCH APPLIED AND OCCLUSIVE DRESSING
--- NOTE | 2019-06-05 14:39 | MORECARE ---
CASE MANAGEMENT DISCHARGE SUMMARY PATIENT: RAMIRO GORDON UNIT: [id number] ADM DATE: 06/03/19 AGE: 54 : 63 SEX: M ROOM/BED: D.2216 AUTHOR: EVONNE SANTA PHYSICIAN: REFERRING PHYSICIAN: JING ABREU MD DATE OF SERVICE: 06/05/19 Discharge Plan Patient Name: RAMIRO GORDON Facility: [facility]:[place] : 1965 Planned Disposition: Home with Home Health Anticipated Discharge Date: Discharge Date: Expected LOS: Initial Reviewer: [email or web address] Initial Review Date: 06/03/2019 Generated: 06/05/19 3:38 pm Comments DCP- Discharge Planning Updated by [email or web address]: Jessica Pryor on 06/05/19 1:[address] patient is discharging home with [facility] health, they will start care on saturday. cm to follow as needed DCP- Discharge Planning Updated by [email or web address]: Jessica Pryor on 06/05/19 11:[address] Patient Name: RAMIRO GORDON Admission Status: ER Accout number: [id number] Admission Date: 06-03-2019 : 1965 Admission Diagnosis: Attending: JING ABREU Current LOS: 2 Anticipated DC Date: Planned Disposition: Home with Home Health Primary Insurance: MEDICARE A & B Discharge Planning Comments: CM met with patient to complete initial dc planning assessment. CM educated patient on the CM role and verbal consent given by patient to complete assessment. Patient lives at home with his mother, but he thought he was going to stay with his brother at discharge. His brother's address is [address] [place] [address] [address]. At discharge patient plans to return home and feels this is a safe discharge. CM discussed availability of home health, rehab services, and medical equipment. He did not want to go back to [facility], He would like home health. He did not have a preference for home health. I have called his prescription of Zyvox into [facility] [address]. I spoke with Brian at [facility]. His peralta will be $3.40. Patient has a walker and crutches. Patient denied known discharge needs at this time. CM will continue to follow and will assist as needed with dc plans/needs. Food Stylist: Jessica Pryor DCPIA - Discharge Planning Initial Assessment Updated by [email or web address]: Jessica Pryor on 06/05/19 12:35 pm * Is the patient Alert and Oriented? Yes * How many steps to enter\exit or inside your home? NONE * PCP NONE * Pharmacy [facility] * Preadmission Environment Home with Family * ADLs Independent * Equipment Crutch Rolling Walker * List name and contact numbers for known caregivers / representatives who currently or will assist patient after discharge: BARRON HUITRON (MOTHER) [phone] * Verbal permission to speak to the caregivers and representatives has been obtained from the patient. N/A * Community resources currently utilized None * Additional services required to return to the preadmission environment? Yes * Can the patient safely return to the preadmission environment? Yes * Has this patient been hospitalized within the prior 30 days at any hospital? Yes Last DP export: 06/05/19 12:16 p Patient Name: RAMIRO GORDON Page 10819 at 1439 All edits/amendments must be made on the electronic document DICTATION DATE: 06/05/191437 FURNITURE REPAIRER: VIKTORIYA 06/05/191437 RPT#: [id number] DC DATE: STATUS: ADM IN [facility] [address] [place] [address] END OF REPORT
--- NOTE | 2019-06-05 16:09 | NUR ---
DISCHARGE INSTRUCTIONS GIVEN. SEEMS TO UNDERSTAND INSTRUCTIONS. PICC OUT PER [facility]. DENIES ANY FURTHER NEED AT THIS TIME. LEFT WITH HOSPTIAL STAFF TO GO HOME IN PERSONAL WITH BROTHER.
--- NOTE | 2019-06-06 11:37 | MORECARE ---
CASE MANAGEMENT DISCHARGE SUMMARY PATIENT: RAMIRO GORDON UNIT: [id number] ADM DATE: 06/03/19 AGE: 54 : 63 SEX: M ROOM/BED: D.2216 AUTHOR: EVONNE SANTA PHYSICIAN: REFERRING PHYSICIAN: JING ABREU MD DATE OF SERVICE: 06/06/19 Discharge Plan Patient Name: RAMIRO GORDON Facility: [facility]:[place] : 1965 Planned Disposition: Home with Home Health Anticipated Discharge Date: Discharge Date: 06/05/2019 Expected LOS: Initial Reviewer: [email or web address] Initial Review Date: 06/03/2019 Generated: 06/06/19 12:36 pm Comments DCP- Discharge Planning Updated by [email or web address]: Jessica Pryor on 06/05/19 1:[address] patient is discharging home with [facility], they will start care on saturday. cm to follow as needed DCP- Discharge Planning Updated by [email or web address]: Jessica Pryor on 06/05/19 11:[address] Patient Name: RAMIRO GORDON Admission Status: ER Accout number: [id number] Admission Date: 06-03-2019 : 1965 Admission Diagnosis: Attending: JING ABREU Current LOS: 2 Anticipated DC Date: Planned Disposition: Home with Home Health Primary Insurance: MEDICARE A & B Discharge Planning Comments: CM met with patient to complete initial dc planning assessment. CM educated patient on the CM role and verbal consent given by patient to complete assessment. Patient lives at home with his mother, but he thought he was going to stay with his brother at discharge. His brother's address is [address] [place] [address] [address]. At discharge patient plans to return home and feels this is a safe discharge. CM discussed availability of home health, rehab services, and medical equipment. He did not want to go back to [facility], He would like home health. He did not have a preference for home health. I have called his prescription of Zyvox into [facility] [address]. I spoke with Brian at [facility]. His peralta will be $3.40. Patient has a walker and crutches. Patient denied known discharge needs at this time. CM will continue to follow and will assist as needed with dc plans/needs. Apartment Manager: Jessica Pryor DCPIA - Discharge Planning Initial Assessment Updated by [email or web address]: Jessica Pryor on 06/05/19 12:35 pm * Is the patient Alert and Oriented? Yes * How many steps to enter\exit or inside your home? NONE * PCP NONE * Pharmacy [facility] * Preadmission Environment Home with Family * ADLs Independent * Equipment Crutch Rolling Walker * List name and contact numbers for known caregivers / representatives who currently or will assist patient after discharge: BARRON HUITRON (MOTHER) [phone] * Verbal permission to speak to the caregivers and representatives has been obtained from the patient. N/A * Community resources currently utilized None * Additional services required to return to the preadmission environment? Yes * Can the patient safely return to the preadmission environment? Yes * Has this patient been hospitalized within the prior 30 days at any hospital? Yes Last DP export: 06/05/19 1:39 p Patient Name: RAMIRO GORDON Page 95149 at 1137 All edits/amendments must be made on the electronic document DICTATION DATE: 06/06/191135 BOTTLING SUPERVISOR: VIKTORIYA 06/06/191135 RPT#: [id number] DC DATE:06/05/19 STATUS: DIS IN [facility] [address] [place] [address] END OF REPORT
== END 2019-06-05 16:10 | disposition home health service (06) | DRG 921 ==
LOC: D.ER 13:21 → D.MS 17:07
PROVIDERS: Family Medicine; ADMIT Orthopaedic Surgery; ATTEND Orthopaedic Surgery
DX: M96.840 Postprocedural hematoma of a musculoskeletal structure following a musculoskeletal system procedure (principal)

== ENCOUNTER → 2019-06-09 13:19 | Outpatient (CLI) | payer MEDICARE ==
[2019-06-04 03:22] VITALS: BMI 23.6
[~2019-06-09 13:19] MED LIST changes: +NORCO-7.5 PO
[2019-06-09 14:24] LABS: BASOPHILS 0.5 % (0-2); EOSINOPHILS 0.5 % (0-7); HEMATOCRIT 34.1 % (42.0-54.0); HEMOGLOBIN 10.8 g/dL (13.5-17.5); IMMATURE GRANULOCYTES 0.3 % (0-5); LYMPHOCYTES 22.9 % (15-50); MCH 29.9 pg (26.0-34.0); MCHC 31.7 g/dL (31.0-37.0); MCV 94.5 fL (80.0-100.0); MEAN PLATELET VOLUME 8.9 fL (7.4-10.4); NEUTROPHILS 65.8 % (40-80); PLATELET COUNT 307 10x3/uL (130-400); RBC 3.61 10x6/uL (4.20-6.10); RDW 15.8 % (11.5-14.5); WBC 6.4 10x3/uL (4.8-10.8)
[2019-06-09 15:32] LABS: ERYTHROCYTE SEDIMENTATION RATE 23 mm/hr (0-20)
== END | disposition home or self-care (01) ==
LOC: D.LAB 13:19
PROVIDERS: ATTEND Orthopaedic Surgery
DX: M25.551 Pain in right hip (principal)

== ENCOUNTER → 2019-09-04 10:25 | Outpatient (CLI) | payer MEDICARE ==
[2019-06-04 03:22] VITALS: BMI 23.6
== END | disposition home or self-care (01) ==
LOC: D.MRI 08-27 11:00
PROVIDERS: ATTEND Clinical Nurse Specialist Family Health
DX: M25.561 Pain in right knee (principal)

== ENCOUNTER 2019-09-25 12:21 | Emergency (ER) | payer MEDICARE ==
[~2019-09-25] VITALS: Ht 175.3 cm; Wt 72.7 kg
[~2019-09-25 12:21] MED LIST changes: +TORADOL10 MG PO
[2019-09-25 12:29] VITALS: Ht 175.3 cm; Wt 72.7 kg
[2019-09-25 13:42] VITALS: BP 142/78
== END 2019-09-25 13:43 | disposition home or self-care (01) ==
LOC: D.ER 12:21
DX: M25.561 Pain in right knee (principal); Z76.5 Malingerer [conscious simulation]